=== PATIENT | female | born 1955 | race Caucasian/White ===

== ENCOUNTER 2016-08-22 17:01 | Emergency (ER) | payer OTHER, MEDICARE ==
[~2016-08-22] VITALS: Ht 162.6 cm; Wt 41.3 kg
[~2016-08-22 17:01] MED LIST: ASPIRIN325 M2 PO; ATORVASTATIN CA40 MG PO; AUGMENTIN 875875 MG PO; CARISOPRODOL350 MG PO; FIORICET 300 MG1 CAP PO; GUAIFENESIN600 MG PO; HEPARIN 2525000 UNI1 IV; LEVOTHROID SOD0.1 MG PO; LEVOTHROID0.2 MG PO; LEVOTHYROXIN0.025 MG PO; LISINOPRIL2.5 MG PO; LOVENOX40 MG/0.1 SC; MORPHINE SULFAT30 M1 PO; MORPHINE SULFAT30 M2 PO; NORVASC 10MG10 MG PO; NORVASC 5MG TAB5 MG PO; PERCOCET 325 MG1 TA2 PO; PERCOCET 325 MG1 TAB PO; PRINIVIL 5MG5 MG PO; ROCEPHIN1000 MG IV; SOMA 350MG TAB350 MG PO; TRAMADOL50 MG PO; TYLENOL325 MG PO
[2016-08-22 17:50] LABS: ABSOLUTE BASOPHIL COUNT 0 /CUMM (0.0-0.2); ABSOLUTE EOSINOPHIL COUNT 0.2 /CUMM (0.0-0.7); ABSOLUTE GRANULOCYTE CT 8.9 /CUMM (1.4-6.5); ABSOLUTE LYMPH COUNT 1.5 /CUMM (1.2-3.4); ABSOLUTE MONOCYTE COUNT 0.6 /CUMM (0.10-0.60); BASOPHIL % 0.4 % (0.0-2.0); EOSINOPHIL % 1.6 % (0-5); GRANULOCYTE % 79.3 % (42.2-75.2); HEMATOCRIT 46.3 % (37-47); MEAN CORPUSCULAR HGB 29.5 PG (27.0-31.0); MEAN CORPUSCULAR HGB CONC 32.6 G/DL (33.0-37.0); MEAN CORPUSCULAR VOLUME 90.5 FL (81.0-99.0); MEAN PLATELET VOLUME 8.9 FL (7.4-10.4); PLATELET COUNT 231 /CUMM (130-400); RBC DISTRIBUTION WIDTH 18.3 % (11.5-14.5); RED BLOOD CELL CT 5.11 /CUMM (4.20-5.40); WHITE BLOOD CELL COUNT 11.3 /CUMM (4.8-10.8)
--- NOTE | 2016-08-22 18:35 | ED GENERAL ADULT ---
History of Present Illness General Chief Complaint: Low Back Pain/Injury Stated Complaint: BIBA, BACK PAIN Source: patient, old records Exam Limitations: no limitations Vital Signs & Intake/Output Vital Signs & Intake/Output Vital Signs Date Time Temp Pulse Resp B/P B/P Pulse O2 O2 Flow FiO2 Mean Ox Delivery Rate 08/22 2142 98.2 76 18 180/90 94 Room Air 08/223 190/90 08/22 1839 71 20 180/110 93 Room Air 08/22 1711 98.4 75 15 206/110 97 Room Air Room Air ED Intake and Output 08/23 0000 08/22 1200 Intake Total Output Total Balance Patient 91 lb Weight Weight Reported by Patient Measurement Method Allergies Coded Allergies: erythromycin base (UNKNOWN PT DOESNT REMEMBER 08/22/16) Reconcile Medications Amlodipine Besylate 10 MG TABLET 1 TAB PO DAILY BP (Reported) Aspirin (Ecotrin*) 81 MG TABLET.DR 1 TAB PO DAILY HEART/BLOOD (Reported) Atorvastatin Calcium 80 MG TABLET 1 TAB PO Q2D CHOLESTEROL (Reported) Ciprofloxacin HCl (Cipro) 500 MG TABLET 1 TAB PO BID pyelo Clopidogrel Bisulfate (Clopidogrel) 75 MG TABLET 1 TAB PO DAILY BLOOD THINNER (Reported) Levothyroxine Sodium 112 MCG TABLET 1 TAB PO DAILY THYROID (Reported) Lisinopril 2.5 MG TABLET 1 TAB PO DAILY BP (Reported) Lisinopril 20 MG TABLET 1 TAB PO DAILY BP (Reported) Metoprolol Succinate 25 MG TAB 1 TAB PO DAILY HEART/BP (Reported) Oxycodone HCl/Acetaminophen (Percocet 5-325 MG Tablet) 5 MG-325 MG TABLET 1 TAB PO BID PRN pain Triage Note: PT BIBA TO TRIAGE FOR L LOWER BACK PAIN THAT STARTED THREE DAYS AGO WITHOUT ANY TRAUMA. PT DID NOT TAKE ANY PAIN MEDICATION TODAY. PT DENIES NUMBNESS OR TINGLING IN L LEG. PT IS HYPERTENSIVE IN TRIAGE 206/110. REPORTS SHE DID TAKE HER BP MEDICATION TODAY. Triage Nurses Notes Reviewed? yes Onset: Gradual Duration: day(s): (3), constant Timing: recent history Injury Environment: home Severity: moderate, severe Severity Numbers: 7 No Modifying Factors: none Associated Symptoms: DENIES HPI: 61-year-old female history of peripheral vascular disease hypertension presents to ER for evaluation complaining of left lower back pain started 3 days ago. She denies any known injury or trauma or injury. She has not taken anything for her symptoms. The pain is nonradiating she denies any abdominal pain and swelling. She denies any nausea vomiting or diarrhea on arrival the patient presents hypertensive she states she has been compliant with her medication however believes her blood pressure is elevated secondary to her pain. No chest pain shortness of breath cough fever or chills. (SANTI GREGG) Past History Travel History Traveled to [place] past 21 day No Medical History Any Pertinent Medical History? see below for history Neurological: VASCULAR ISSUES PERIPHERAL VASCULAR DISEASE EENT: NONE Cardiovascular: hypertension, PVD Respiratory: bronchitis, emphysema, pneumonia Gastrointestinal: ASCITES ISCHEMIC BOWEL? Hepatic: NONE Renal: NONE Musculoskeletal: chronic back pain, R ABOVE KNEE AMPUTATION SCOLIOSIS Psychiatric: HISTORY OF DRUG ABUSE Endocrine: hypothyroidism (noncompliance with medication) Blood Disorders: NONE Cancer(s): NONE [employer]ING [employer]YING [employer] REPA[employer]ER/Reproductive: NONE History of MRSA: No History of VRE: No History of CDIFF: No Surgical History Surgical History: R AKA, CHOLY, UPPER EXTREMITY ARTERIAL STENT Psychosocial History Who do you live with Family Services at Home None What is your primary language Trinidadian Tobacco Use: Current Daily Use Daily Tobacco Use Amount/Type: => 5 Cigarettes daily ETOH Use: occasional use Illicit Drug Use: denies illicit drug use Family History Family History, If Any: MOTHER FH: heart attack, Onset: 40-50. FATHER FH: emphysema Hx Contributory? No (SANTI GREGG) Review of Systems Review of Systems Constitutional: Reports: see HPI. All Other Systems: Reviewed and Negative Comments Review of systems: See HPI, All other systems negative. Constitutional, no chills no fever, no malaise HEENT: No visual changes no sore throat no congestion, no ear pain Cardiovascular: No chest pain , no palpitation Skin: no rashes, no change in skin Respiratory: No dyspnea no cough no sputum GI: No nausea no vomiting, no diarrhea, no bloating/constipation : No dysuria No hematuria, no frequency, no discharge Muscle skeletal: No joint pain, no joint swelling, no back pain, no neck pain, Neurologic: No numbness no headache Psych: No stress no depression,. Heme/endocrine: No bruising no bleeding Immunology: No lymphadenopathy (SANTI GREGG) Physical Exam Physical Exam General Appearance: well developed/nourished, alert, awake Comments: Well-developed well-nourished person in no acute distress HEENT: Normal EENT exam; PERRL, EOMI. HEAD is atraumatic. moist mucous membranes. Neck: Supple, normal range of motion without pain or tenderness Back: Nontender, no CVA tenderness. Full range of motion Cardiovascular: Regular rate and rhythms no murmurs rubs or gallops, normal JVP Respiratory: Chest nontender.There were no bony deformities, no asymmetry. No respiratory distress. Patient speaking in full complete sentences. Breath sounds clear to auscultation bilaterally: NO W/R/R Abdomen: Soft, nontender nondistended, no appreciable organomegaly. Normal bowel sounds. No rebound/guarding, No appreciable enlargement of the abdominal aorta, No ascites. Extremity: Right lower extremity above-knee amputation No edema, full range of motion of extremities, normal and equal pulses bilaterally Neuro: Alert oriented x3, motor sensory normal, cranial nerves II through XII grossly intact. There were no obvious focal neurologic abnormalities. Skin: No appreciable rash on exposed skin, skin is warm and dry. Psych: Mood and affect is normal, memory and judgment is normal. Core Measures ACS in differential dx? No CVA/TIA Diagnosis: No Severe Sepsis Present: No Septic Shock Present: No (SANTI GREGG) Progress Differential Diagnoses I considered the following diagnoses in my evaluation of the patient: Muscle strain kidney stone herniated disc cauda equina diverticulitis hypertensive urgency emergency] Plan of Care: Orders Procedure Date/time Status TROPONIN LEVEL 08/22 1718 Complete COMPREHENSIVE METABOLIC PANEL 08/22 1718 Complete CBC WITHOUT DIFFERENTIAL 08/22 1718 Complete EKG 08/22 1718 Active Laboratory Tests 08/22/16 1734: Anion Gap 14, Estimated GFR > 60, BUN/Creatinine Ratio 16.0, Glucose 94, Calcium 9.7, Total Bilirubin 1.1, AST 34, ALT 46, Alkaline Phosphatase 105, Troponin I < 0.01, Total Protein 9.1 H, Albumin 5.1 H, Globulin 4.0, Albumin/Globulin Ratio 1.3, CBC w Diff NO MAN DIFF REQ, RBC 5.11, MCV 90.5, MCH 29.5, RDW 18.3 H, MPV 8.9, Gran % 79.3 H, Lymphocytes % 13.7 L, Monocytes % 5.0, Eosinophils % 1.6, Basophils % 0.4, Absolute Granulocytes 8.9 H, Absolute Lymphocytes 1.5, Absolute Monocytes 0.6, Absolute Eosinophils 0.2, Absolute Basophils 0, PUBS MCHC 32.6 L Patient medicated Dilaudid repeat blood pressure slightly improved. Patient denies headache vision changes chest pain CAT scan ordered labs ordered On repeat evaluation the patient reports she is feeling improved the pain has resolved and is requesting to go home discussed with her need for CAT scan patient will agree to stay at this time 08/22/2016 9:20:31 PM I discussed with the patient at length all of their results. I had an extensive conversation regarding need for close follow up with their primary care physician this week as well as return precautions. I answered all of their questions, they feel comfortable with the plan and follow-up care. I discussed with the patient/family the medications that they will receive. I gave them signs and symptoms that could indicate an adverse reaction. I have advised them to limit their activities until they can see how they respond to the medication. (AMBER GARNER,SANTI) Diagnostic Imaging: Viewed by Me: CT Scan. Discussed w/RAD: CT Scan. Radiology Impression: PATIENT: AALIYAH MACIEL PRESENT AGE: 61 PATIENT ACCOUNT NO: [id number] : 55 LOCATION: [facility] ([place]) ORDERING PHYSICIAN: SANTI GARNER SERVICE DATE: 08/22/16 EXAM TYPE: CAT - CT ABD & PELVIS W/O IV CONTRAS EXAMINATION: CT ABDOMEN AND PELVIS WITHOUT CONTRAST CLINICAL INFORMATION: Left lower back pain. COMPARISON: Arch 2014. TECHNIQUE : Contiguous axial thin section helical images of the abdomen and pelvis were performed without oral or IV contrast. The data set was reformatted in the coronal and sagittal planes and reviewed on an independent workstation. DLP: 272 mGy-cm. FINDINGS: There is a small left pleural effusion with adjacent airspace disease. Emphysema is identified within both lung bases. The visualized portions of the heart are unremarkable. The liver is of normal size and attenuation without focal lesions nor intrahepatic biliary ductal dilation. A normal gallbladder is identified. There is no wall thickening or discernible pericholecystic fluid. The spleen, pancreas, adrenal glands are unremarkable. Both kidneys are of normal size and attenuation without hydronephrosis. There is a 1 mm nonobstructive calculus within the interpole region of the right kidney. There are renal arterial vascular calcifications present bilaterally. There is left perinephric stranding. This extends inferiorly along the proximal left ureter. There is adjacent stranding about the descending colon. There is no abdominal free fluid. There is no discernible mesenteric lymphadenopathy. There is nonspecific fullness in the left retroperitoneal region inferior to the left kidney. This is similar to prior exam and could correspond to mild lymphadenopathy. The patient is status post aortobifemoral bypass. Evaluation of the vasculature is now possible on this noncontrast exam. As stated above, there is stranding about the descending colon. Evaluation of the colon is limited as it is undistended.. There is no pelvic free fluid. The urinary bladder is unremarkable. There is neither pelvic nor inguinal lymphadenopathy. Bone windows : Neither sclerotic nor lytic bone lesions are identified. IMPRESSION: There is left perinephric and proximal ureteral stranding without associated hydronephrosis or nephrolithiasis. There is also adjacent stranding about the descending colon and trace fluid inferior to the left kidney. The etiology for this appearance is uncertain. This could relate to a renal infection or recently passed calculus. Alternatively, the appearance of the kidney could be secondary to inflammation about the descending colon, though that is considered less likely. Finally, the aforementioned stranding is also adjacent to the aortobifemoral graft. The vasculature is not evaluated on this noncontrast exam. Consider correlation with a follow-up contrast-enhanced examination to further evaluate the left kidney and vasculature. Small left pleural effusion with adjacent airspace disease. Emphysema. 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 < Electronically signed in Other Vendor System> SIGNED BY: HALLIE PERALTA MD 08/22/162099 Initial ED EKG: NSR AT 70, NO ACUTE ST SEG CHANGES, NORMAL AXIS (SANTI GREGG) Departure Departure Time of Disposition: 2115 Disposition: HOME OR SELF CARE Condition: Stable Clinical Impression Primary Impression: Pyelonephritis Referrals: PATIENT HAS NO PRIMARY CARE DR (PCP/Family) Additional Instructions: cipro as directed, percocet for pain. follow upwith your pmd tomorrow, return to the ER at anytime sooner with any concerns Departure Forms: Customer Survey General Discharge Information Prescriptions: Current Visit Scripts Ciprofloxacin HCl (Cipro) 1 TAB PO BID #14 TAB Oxycodone HCl/Acetaminophen (Percocet 5-325 MG Tablet) 1 TAB PO BID PRN pain #10 TAB (SANTI GREGG) PA/LAPEL BASTER Co-Sign Statement Statement: ED Attending supervision documentation- [] I saw and evaluated the patient. I have also reviewed all the pertinent lab results and diagnostic results. I agree with the findings and the plan of care as documented in the PA's/LAPEL BASTER's documentation. [x] I have reviewed the ED Record and agree with the PA's/LAPEL BASTER's documentation. [] Additions or exceptions (if any) to the PAs/LAPEL BASTER's note and plan are summarized below: [] (NETO MONTIEL,KOREY Porras) Critical Care Note Critical Care Note Critical Care Time: non-applicable (SANTI GREGG)
[2016-08-22] MEDS ORDERED: LEVOTHYROXINE112 MCG PO (18:43)
[2016-08-22] MEDS ORDERED: LISINOPRIL20 M1 PO (18:43)
[2016-08-22] MEDS ORDERED: ATORVASTATIN CA80 M1 PO (18:44)
[2016-08-22] MEDS ORDERED: CLOPIDOGREL75 M1 PO (18:44)
[2016-08-22] MEDS ORDERED: AMLODIPINE BESY10 M1 PO (18:44)
[2016-08-22] MEDS ORDERED: METOPROLOL SUCC25 M1 PO (18:45)
[2016-08-22] MEDS ORDERED: ASPIRIN EC81 M1 PO (18:46)
[2016-08-22] MEDS ORDERED: LISINOPRIL2.5 M1 PO (18:47)
--- NOTE | 2016-08-22 21:00 | CT SCAN REPORT ---
EXAMINATION: CT ABDOMEN AND PELVIS WITHOUT CONTRAST CLINICAL INFORMATION: Left lower back pain. COMPARISON: Arch 2014. TECHNIQUE: Contiguous axial thin section helical images of the abdomen and pelvis were performed without oral or IV contrast. The data set was reformatted in the coronal and sagittal planes and reviewed on an independent workstation. DLP: 272 mGy-cm. FINDINGS: There is a small left pleural effusion with adjacent airspace disease. Emphysema is identified within both lung bases. The visualized portions of the heart are unremarkable. The liver is of normal size and attenuation without focal lesions nor intrahepatic biliary ductal dilation. A normal gallbladder is identified. There is no wall thickening or discernible pericholecystic fluid. The spleen, pancreas, adrenal glands are unremarkable. Both kidneys are of normal size and attenuation without hydronephrosis. There is a 1 mm nonobstructive calculus within the interpole region of the right kidney. There are renal arterial vascular calcifications present bilaterally. There is left perinephric stranding. This extends inferiorly along the proximal left ureter. There is adjacent stranding about the descending colon. There is no abdominal free fluid. There is no discernible mesenteric lymphadenopathy. There is nonspecific fullness in the left retroperitoneal region inferior to the left kidney. This is similar to prior exam and could correspond to mild lymphadenopathy. The patient is status post aortobifemoral bypass. Evaluation of the vasculature is now possible on this noncontrast exam. As stated above, there is stranding about the descending colon. Evaluation of the colon is limited as it is undistended.. There is no pelvic free fluid. The urinary bladder is unremarkable. There is neither pelvic nor inguinal lymphadenopathy. Bone windows: Neither sclerotic nor lytic bone lesions are identified. IMPRESSION: There is left perinephric and proximal ureteral stranding without associated hydronephrosis or nephrolithiasis. There is also adjacent stranding about the descending colon and trace fluid inferior to the left kidney. The etiology for this appearance is uncertain. This could relate to a renal infection or recently passed calculus. Alternatively, the appearance of the kidney could be secondary to inflammation about the descending colon, though that is considered less likely. Finally, the aforementioned stranding is also adjacent to the aortobifemoral graft. The vasculature is not evaluated on this noncontrast exam. Consider correlation with a follow-up contrast-enhanced examination to further evaluate the left kidney and vasculature. Small left pleural effusion with adjacent airspace disease. Emphysema.
[2016-08-22] MEDS ORDERED: CIPRO500 M1 PO (21:18)
[2016-08-22] MEDS ORDERED: PERCOCET 5-3251 EACH PO (21:18)
[2016-08-22 21:43] VITALS: BP 180/90
== END 2016-08-22 21:56 ==
LOC: ERH 17:01
PROVIDERS: Emergency Medicine
DX: N12 Tubulo-interstitial nephritis, not specified as acute or chronic (principal)
CPT/HCPCS: 74176; 93005; 93010; 96372

== ENCOUNTER 2017-04-17 22:19 | Inpatient (IN) | payer OTHER, MEDICARE ==
[~2017-04-17] VITALS: Ht 162.6 cm; Wt 44.9 kg
[~2017-04-17 22:19] MED LIST changes: +AMLODIPINE BESY10 M1 PO; +ASPIRIN EC81 M1 PO; +ATORVASTATIN CA80 M1 PO; +CIPRO500 M1 PO; +CLOPIDOGREL75 M1 PO; +LEVOTHYROXINE112 MCG PO; +LISINOPRIL2.5 M1 PO; +LISINOPRIL20 M1 PO; +METOPROLOL SUCC50 M2 PO; +PERCOCET 5-3251 EACH PO
--- NOTE | 2017-04-17 22:27 | ED GENERAL ADULT ---
See Addendum History of Present Illness General Chief Complaint: General Adult Stated Complaint: HAND NUMBESS, HEADACHE, N/V, ABDOMINAL PAIN Source: patient Exam Limitations: no limitations Vital Signs & Intake/Output Vital Signs & Intake/Output Vital Signs Date Time Temp Pulse Resp B/P B/P Pulse O2 O2 Flow FiO2 Mean Ox Delivery Rate 04/17 2347 96 Room Air 04/17 2342 97.3 70 18 106/69 96 Room Air 04/17 2228 97.1 91 18 122/85 ED Intake and Output 04/18 0000 04/17 1200 Intake Total Output Total Balance Patient 98 lb Weight Weight Estimated Measurement Method Allergies Coded Allergies: erythromycin base (UNKNOWN PT DOESNT REMEMBER 08/22/16) Reconcile Medications Amlodipine Besylate 10 MG TABLET 1 TAB PO DAILY BP (Reported) Aspirin (Ecotrin*) 81 MG TABLET.DR 1 TAB PO DAILY HEART/BLOOD (Reported) Atorvastatin Calcium 80 MG TABLET 1 TAB PO Q2D CHOLESTEROL (Reported) Ciprofloxacin HCl (Cipro) 500 MG TABLET 1 TAB PO BID pyelo Clopidogrel Bisulfate (Clopidogrel) 75 MG TABLET 1 TAB PO DAILY BLOOD THINNER (Reported) Levothyroxine Sodium 112 MCG TABLET 1 TAB PO DAILY THYROID (Reported) Lisinopril 2.5 MG TABLET 1 TAB PO DAILY BP (Reported) Lisinopril 20 MG TABLET 1 TAB PO DAILY BP (Reported) Metoprolol Succinate 25 MG TAB 1 TAB PO DAILY HEART/BP (Reported) Oxycodone HCl/Acetaminophen (Percocet 5-325 MG Tablet) 5 MG-325 MG TABLET 1 TAB PO BID PRN pain Triage Nurses Notes Reviewed? yes Onset: Gradual Duration: day(s): Timing: recent history Injury Environment: home Severity: mild, moderate HPI: 61 Yo woman h/o vascular disease, from home, presents with headache, nausea, photophobia that began this afternoon. She also notes left hand numbness x many weeks and right hand numbness that began a few days ago. She notes no weakness. She shares that she also has had diarrhea, nausea, and vomiting for the past 1-2 days. Past History Travel History Traveled to [place] past 21 day No Medical History Any Pertinent Medical History? see below for history Neurological: VASCULAR ISSUES PERIPHERAL VASCULAR DISEASE EENT: NONE Cardiovascular: hypertension, PVD Respiratory: bronchitis, emphysema, pneumonia Gastrointestinal: ASCITES ISCHEMIC BOWEL? 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 FATHER FH: emphysema Hx Contributory? No Review of Systems Review of Systems Constitutional: Reports: no symptoms. EENTM: Reports: no symptoms. Respiratory: Reports: no symptoms. Cardiovascular: Reports: no symptoms. GI: Reports: no symptoms. Genitourinary: Reports: no symptoms. Musculoskeletal: Reports: no symptoms. Skin: Reports: no symptoms. Neurological/Psychological: Reports: no symptoms. Hematologic/Endocrine: Reports: no symptoms. Immunologic/Allergic: Reports: no symptoms. All Other Systems: Reviewed and Negative Physical Exam Physical Exam General Appearance: well developed/nourished, mild distress Head: atraumatic, normal appearance Eyes: Bilateral: normal appearance, PERRL, EOMI. Ears, Nose, Throat: normal pharynx, normal ENT inspection Neck: normal inspection, supple, full range of motion Respiratory: chest non-tender, no respiratory distress, diminished breath sounds bilaterally Cardiovascular: regular rate/rhythm Gastrointestinal: normal bowel sounds, soft, non-tender, no organomegaly, mild distension Back: normal inspection, normal range of motion Extremities: right leg amputated left leg w/o edema, warm, well perfused. Skin: intact, normal color, warm/dry Core Measures ACS in differential dx? No CVA/TIA Diagnosis: No Sepsis Present: Yes Sepsis Focused Exam Completed? Yes Progress Differential Diagnoses I considered the following diagnoses in my evaluation of the patient: cerebrovascular disease vs migraine vs other abd pathology such as colitis vs other. Plan of Care: Orders Procedure Date/time Status BLOOD CULTURE 04/18 0140 Active BLOOD CULTURE 04/18 0139 Active LACTIC ACID 04/18 0131 Active LACTIC ACID 04/17 2231 Complete RAPID VIRAL INFLUENZA A 04/17 2226 Complete TROPONIN LEVEL 04/17 2226 Complete PARTIAL THROMBOPLASTIN TIME 04/17 2226 Complete PROTHROMBIN TIME 04/17 2226 Complete LIPASE 04/17 2225 Complete HEPATIC FUNCTION PANEL 04/17 2225 Complete CBC WITHOUT DIFFERENTIAL 04/17 2225 Complete BASIC METABOLIC PANEL 04/17 2225 Complete AMYLASE 04/17 2225 Complete EKG 04/17 2225 Active Current Medications Sig/Eduardo Start time Last Medication Dose Stop Time Status Admin Ceftriaxone Sodium 1,000 MG ONCE ONE 04/18 214 AC (Rocephin) 04/18 215 Metronidazole 500 MG IQ8 04/18 214 UNVr (Flagyl) N/A 1 UNIT (No Carrier) Ampicillin Sodium/ 3,000 MG ONCE ONE 04/18 144 CAN Sulbactam Sodium 04/18 213 (Unasyn) Sodium Chloride 100 ML (Normal Saline 0.9%) Laboratory Tests 04/18/17 0123: Lactic Acid Pending 04/17/17 2320: Lactic Acid 6.5 H 04/17/17 2320: Anion Gap 21 H, Estimated GFR 46 L, BUN/Creatinine Ratio 15.0, Glucose 213 H, Calcium 9.7, Total Bilirubin 1.5 H, Direct Bilirubin 1.3 H, AST 155 H, ALT 129 H, Alkaline Phosphatase 303 H, Troponin I 0.05, Total Protein 8.3 H, Albumin 5.0, Amylase 183 H, Lipase 93, PT 15.9 H, INR 1.52 H, APTT 45 H, CBC w Diff NO MAN DIFF REQ, RBC 5.09, MCV 94.4, MCH 30.9, RDW 15.8 H, MPV 8.6, Gran % 90.5 H, Lymphocytes % 7.8 L, Monocytes % 0.9 L, Eosinophils % 0.2, Basophils % 0.6, Absolute Granulocytes 13.7 H, Absolute Lymphocytes 1.2, Absolute Monocytes 0.1, Absolute Eosinophils 0, Absolute Basophils 0.1, PUBS MCHC 32.8 L Microbiology 04/18 139 BLOOD: Blood Culture - ORD 04/18 138 BLOOD: Blood Culture - ORD 04/17 2311 NASOPHARYN: Influenza Virus A & B Rapid Smear - COMP Diagnostic Imaging: Viewed by Me: CT Scan. Discussed w/RAD: CT Scan. Radiology Impression: PATIENT: AALIYAH MACIEL PRESENT AGE: 61 PATIENT ACCOUNT NO: [id number] : 55 LOCATION: [facility] ORDERING PHYSICIAN: Benny Benson MD SERVICE DATE: 04/17/17 EXAM TYPE: CAT - CT HEAD ANGIOGRAM EXAMINATION: CT ANGIOGRAM HEAD CLINICAL INFORMATION: Aneurysms. Headache. COMPARISON: None TECHNIQUE: Initial noncontrast head CT was performed. Test bolus sequences followed by intravenous administration 108 mL of Optiray 350 intravenous contrast. Helical imaging was performed in the axial plane from the skull base to the skull vertex. Delayed postcontrast imaging of the head was also performed. The data was processed at the vascular technologist sonographer's workstation for generation of MIP sequences. Three-dimensional volume rendered reformatted images were also generated at an offline 3-D workstation. DLP: 1484 mGy-cm FINDINGS: HEAD: No intracranial mass, intercerebral edema, hemorrhage, or midline shift is evident. The ventricles and sulci are stable in size and configuration. No extra-axial collections are appreciated. Mild periventricular and deep white matter hypoattenuation is present, consistent with small vessel ischemic change. There is no abnormal parenchymal or leptomeningeal enhancement on the postcontrast imaging. The paranasal sinuses and mastoid air cells are well aerated and clear. CRANIAL CTA: There is normal opacification of the major intracranial vessels. No acute proximal large vessel occlusion or flow-limiting stenosis is identified. There are multiple aneurysms identified. There is a right middle cerebral artery aneurysm at the M2/and 3 level measuring 0.7 x 0.7 x 0.5 cm, series 5 image 199. On the left at the same MCA level there is a smaller aneurysm, measuring 0.3 cm, series 5 image 208. Mild fullness in the region of the basilar tip without focal aneurysm identified. The visualized cervical portion of the internal carotid arteries and vertebral arteries is unremarkable. IMPRESSION: 1. No acute intracranial findings. 2. Bilateral middle cerebral artery aneurysms. No evidence of acute hemorrhage. No prior studies are available to compare aneurysm size. DICTATED BY: Artemio Quispe MD DATE/TIME DICTATED:04/18/17105 PORTER SAMPLE CASE:PRINCESS DATE/TIME TRANSCRIBED:105 CONFIDENTIAL, DO NOT COPY WITHOUT APPROPRIATE AUTHORIZATION. < Electronically signed in Other Vendor System> SIGNED BY: Artemio Quispe MD 04/18/17 0115, abd/pelvic... pancolitis PATIENT: AALIYAH MACIEL PRESENT AGE: 61 PATIENT ACCOUNT NO: [id number] : 55 LOCATION: [facility] ORDERING PHYSICIAN: Benny Benson MD SERVICE DATE: EXAM TYPE: CAT - CT ABD & PELVIS W/O IV CONTRAS EXAMINATION: CT ABDOMEN AND PELVIS WITHOUT CONTRAST CLINICAL INFORMATION: Abdominal pain and diarrhea COMPARISON: 08/22/2016 TECHNIQUE: Multidetector volumetric imaging was performed from the superior aspect of the liver through the pubic symphysis. Sagittal and coronal reformatted images were obtained on the technologist's workstation. DLP: 243 mGy-cm FINDINGS: LUNG BASES: Emphysema noted. Coronary artery calcifications. LIVER, GALLBLADDER, AND BILIARY TREE: The liver is normal in size, shape, and attenuation. No focal hepatic lesion or biliary ductal dilatation is present. The gallbladder is not seen, likely absent. PANCREAS: Unremarkable. SPLEEN: Unremarkable. ADRENAL GLANDS: Left adrenal gland is unremarkable. Likely right adrenal adenoma. The appearance is unchanged. KIDNEYS AND URETERS: The kidneys are normal in size, shape, and attenuation. No hydronephrosis, hydroureter, or calculi seen. No perinephric stranding. BLADDER: Decompressed with no gross abnormality. GASTROINTESTINAL TRACT: Lack of IV contrast and intra-abdominal fat limits the evaluation. The stomach appears unremarkable. The small bowel is nonobstructed. There is pancolonic wall thickening with adjacent inflammation noted. There is a normal appendix. No free air. No significant free fluid. ABDOMINAL WALL: No significant hernia is appreciated. LYMPH NODES: Normal. VASCULAR: Postsurgical changes with aortobiiliac bypass. Vascular stents also noted. PELVIC VISCERA: Unremarkable. OSSEOUS STRUCTURES: No acute or suspicious osseous abnormality. Degenerative changes of the spine and hips. IMPRESSION: Pancolitis of uncertain etiology, possibly infectious, inflammatory, or ischemic in nature. Emphysema. Additional chronic changes as above. DICTATED BY: Artemio Quispe MD DATE/TIME DICTATED: 04/18/17111 PORTER SAMPLE CASE:PRINCESS DATE/TIME TRANSCRIBED:04/18/17111 CONFIDENTIAL, DO NOT COPY WITHOUT APPROPRIATE AUTHORIZATION. <Electronically signed in Other Vendor System> SIGNED BY: Artemio Quispe MD 04/18/178 CXR Impression: PATIENT: AALIYAH MACIEL PRESENT AGE: 61 PATIENT ACCOUNT NO: [id number] : 55 LOCATION: [facility] ORDERING PHYSICIAN: Benny Benson MD SERVICE DATE: 04/17/17 EXAM TYPE: RAD - XRY- PORTABLE CHEST XRAY EXAMINATION: XR PORTABLE CHEST CLINICAL INFORMATION: Diminished breath sounds COMPARISON: 11/21/2015 TECHNIQUE: Portable frontal view of the chest was obtained. FINDINGS: Median sternotomy wires appear intact. Mitral valvular hardware noted. The lungs are well expanded. There is blunting at the left costophrenic angle with focal opacity. The right lung appears clear. No pneumothorax. The cardiomediastinal silhouette is unchanged. IMPRESSION: Small left pleural effusion with associated atelectasis/pneumonia. DICTATED BY: Artemio Quispe MD DATE/TIME DICTATED:04/17/172327 PORTER SAMPLE CASE: PRINCESS DATE/TIME TRANSCRIBED:04/17/172327 CONFIDENTIAL, DO NOT COPY WITHOUT APPROPRIATE AUTHORIZATION. <Electronically signed in Other Vendor System> SIGNED BY: Artemio Quispe MD 04/17/17 1195 Initial ED EKG: accelerated junctional rhythm, anterior q waves, no acute change. Departure Departure Disposition: STILL A PATIENT Condition: Stable Clinical Impression Primary Impression: Ischemic colitis Secondary Impressions: Headache, Pneumonia, Sepsis Referrals: Patient Has No Primary Care Dr (PCP/Family) Departure Forms: Customer Survey General Discharge Information Comments 04/18/17, 1:40am...pt has one episode of mucusy, blood... ct scan with pancolitis , elevated wbc count... discussed with dr. miranda (GI) and dr. ordonez (surgery) ... pt with ischemic colitis... merits iv fluids, bowel rest, abx... they will consult in AM. pt to be admitted to medicine. Admission Note Spoke With: Khushi Jennings MD Documentation of Exam: Documentation of any treatments & extenuating circumstances including Concerns Regarding Discharge (functional status, medication knowledge or non-compliance, living conditions, etc.) that warrant an admission rather than observation: pt with sepsis, ischemic colitis, merits iv fluids, iv abx, bowel rest... gi and gen surgery to consult in AM. Critical Care Note Critical Care Note Critical Care Time: 30-74 min
[2017-04-17 23:30] LABS: ABSOLUTE BASOPHIL COUNT 0.1 /CUMM (0.0-0.2); ABSOLUTE EOSINOPHIL COUNT 0 /CUMM (0.0-0.7); ABSOLUTE GRANULOCYTE CT 13.7 /CUMM (1.4-6.5); ABSOLUTE LYMPH COUNT 1.2 /CUMM (1.2-3.4); ABSOLUTE MONOCYTE COUNT 0.1 /CUMM (0.10-0.60); BASOPHIL % 0.6 % (0.0-2.0); EOSINOPHIL % 0.2 % (0-5); GRANULOCYTE % 90.5 % (42.2-75.2); MEAN CORPUSCULAR HGB 30.9 PG (27.0-31.0); MEAN CORPUSCULAR HGB CONC 32.8 G/DL (33.0-37.0); MEAN CORPUSCULAR VOLUME 94.4 FL (81.0-99.0); MEAN PLATELET VOLUME 8.6 FL (7.4-10.4); PLATELET COUNT 187 /CUMM (130-400); RBC DISTRIBUTION WIDTH 15.8 % (11.5-14.5); RED BLOOD CELL CT 5.09 /CUMM (4.20-5.40); WHITE BLOOD CELL COUNT 15.1 /CUMM (4.8-10.8)
--- NOTE | 2017-04-17 23:34 | RADIOLOGY REPORT ---
EXAMINATION: XR PORTABLE CHEST CLINICAL INFORMATION: Diminished breath sounds COMPARISON: 11/21/2015 TECHNIQUE: Portable frontal view of the chest was obtained. FINDINGS: Median sternotomy wires appear intact. Mitral valvular hardware noted. The lungs are well expanded. There is blunting at the left costophrenic angle with focal opacity. The right lung appears clear. No pneumothorax. The cardiomediastinal silhouette is unchanged. IMPRESSION: Small left pleural effusion with associated atelectasis/pneumonia.
[2017-04-17 23:44] LABS: PT 15.9 SEC (9.4-12.5); PTT 45 SEC (25-37)
--- NOTE | 2017-04-18 01:15 | CT SCAN REPORT ---
EXAMINATION: CT ANGIOGRAM HEAD CLINICAL INFORMATION: Aneurysms. Headache. COMPARISON: None TECHNIQUE: Initial noncontrast head CT was performed. Test bolus sequences followed by intravenous administration 108 mL of Optiray 350 intravenous contrast. Helical imaging was performed in the axial plane from the skull base to the skull vertex. Delayed postcontrast imaging of the head was also performed. The data was processed at the glass technologist's workstation for generation of MIP sequences. Three-dimensional volume rendered reformatted images were also generated at an offline 3-D workstation. DLP: 1484 mGy-cm FINDINGS: HEAD: No intracranial mass, intercerebral edema, hemorrhage, or midline shift is evident. The ventricles and sulci are stable in size and configuration. No extra-axial collections are appreciated. Mild periventricular and deep white matter hypoattenuation is present, consistent with small vessel ischemic change. There is no abnormal parenchymal or leptomeningeal enhancement on the postcontrast imaging. The paranasal sinuses and mastoid air cells are well aerated and clear. CRANIAL CTA: There is normal opacification of the major intracranial vessels. No acute proximal large vessel occlusion or flow-limiting stenosis is identified. There are multiple aneurysms identified. There is a right middle cerebral artery aneurysm at the M2/and 3 level measuring 0.7 x 0.7 x 0.5 cm, series 5 image 199. On the left at the same MCA level there is a smaller aneurysm, measuring 0.3 cm, series 5 image 208. Mild fullness in the region of the basilar tip without focal aneurysm identified. The visualized cervical portion of the internal carotid arteries and vertebral arteries is unremarkable. IMPRESSION: 1. No acute intracranial findings. 2. Bilateral middle cerebral artery aneurysms. No evidence of acute hemorrhage. No prior studies are available to compare aneurysm size.
--- NOTE | 2017-04-18 01:18 | CT SCAN REPORT ---
EXAMINATION: CT ABDOMEN AND PELVIS WITHOUT CONTRAST CLINICAL INFORMATION: Abdominal pain and diarrhea COMPARISON: 08/22/2016 TECHNIQUE: Multidetector volumetric imaging was performed from the superior aspect of the liver through the pubic symphysis. Sagittal and coronal reformatted images were obtained on the technologist's workstation. DLP: 243 mGy-cm FINDINGS: LUNG BASES: Emphysema noted. Coronary artery calcifications. LIVER, GALLBLADDER, AND BILIARY TREE: The liver is normal in size, shape, and attenuation. No focal hepatic lesion or biliary ductal dilatation is present. The gallbladder is not seen, likely absent. PANCREAS: Unremarkable. SPLEEN: Unremarkable. ADRENAL GLANDS: Left adrenal gland is unremarkable. Likely right adrenal adenoma. The appearance is unchanged. KIDNEYS AND URETERS: The kidneys are normal in size, shape, and attenuation. No hydronephrosis, hydroureter, or calculi seen. No perinephric stranding. BLADDER: Decompressed with no gross abnormality. GASTROINTESTINAL TRACT: Lack of IV contrast and intra-abdominal fat limits the evaluation. The stomach appears unremarkable. The small bowel is nonobstructed. There is pancolonic wall thickening with adjacent inflammation noted. There is a normal appendix. No free air. No significant free fluid. ABDOMINAL WALL: No significant hernia is appreciated. LYMPH NODES: Normal. VASCULAR: Postsurgical changes with aortobiiliac bypass. Vascular stents also noted. PELVIC VISCERA: Unremarkable. OSSEOUS STRUCTURES: No acute or suspicious osseous abnormality. Degenerative changes of the spine and hips. IMPRESSION: Pancolitis of uncertain etiology, possibly infectious, inflammatory, or ischemic in nature. Emphysema. Additional chronic changes as above.
--- NOTE | 2017-04-18 02:36 | Cons- General Surgery ---
Yasemin Briscoe 04/18/17 0217: General Information and HPI Consulting Request Date of Consult: 04/18/17 Requested By: Dr. Manasa Benson Reason for Consult: Abdominal pain, nausea, vomitting, diarrhea Source of Information: patient, old records Exam Limitations: no limitations History of Present Illness: Mi is a 61 year old female who presents to the ER today with a 1-2 day history of nausea, vomitting and diarrhea. She also acknowledges abdominal pain , mainly in the lower intestinal/pelvic region but she states that she has discomfort throughout. As she was being transported to CT for scan, she had a bm consisting of valeria blood. CT imaging was obtained which shows pancolitis. The etiology of which is unclear at the present moment. Labwork was obtained, lactic acid was evaluated and found to be 6.5 suggesting the possiblity of an ischemic cholitis. The patient has a [facility] signficant for cardiac and vascular issues. She is status post R AKA and left arterial bypass. She has also undergone arterial stenting in her upper extremity and has a history of an [place] approximately 2 years ago. She does have a history of drug abuse. Allergies/Medications Allergies: Coded Allergies: erythromycin base (UNKNOWN PT DOESNT REMEMBER 08/22/16) Past History Medical History Neurological: VASCULAR ISSUES PERIPHERAL VASCULAR DISEASE EENT: NONE Cardiovascular: hypertension, PVD Respiratory: bronchitis, emphysema, pneumonia Gastrointestinal: ASCITES ISCHEMIC BOWEL? 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 FATHER FH: emphysema Psychosocial History Who Do You Live With? spouse Services at Home: None Primary Language: Haitian Living Will? no Power of Well Cleaner/HCP? no Functional Ability ADLs Independent: dressing, eating, toileting, bathing. Ambulation: walker IADLs Independent: finances, telephone, medication admin. Needs Assist: transportation. Review of Systems Review of Systems Constitutional: Reports: see HPI, malaise. EENTM: Reports: no symptoms. Cardiovascular: Reports: no symptoms. Respiratory: Reports: no symptoms. GI: Reports: abdominal pain, diarrhea, nausea, bloody stool, changes in stool, vomiting. Genitourinary: Reports: no symptoms. Musculoskeletal: Reports: no symptoms. Skin: Reports: change in skin color (dry skin, flakes). Neurological/Psychological: Reports: no symptoms. Exam & Diagnostic Data Vital Signs and I&O Vital Signs Date Time Temp Pulse Resp B/P B/P Pulse O2 O2 Flow FiO2 Mean Ox Delivery Rate 04/18 0217 98.2 72 18 138/87 96 Room Air 04/17 2347 96 Room Air 04/17 2342 97.3 70 18 106/69 96 Room Air 04/17 2228 97.1 91 18 122/85 Intake & Output 04/18 0800 04/18 0000 04/17 1600 04/17 0804/17 0000 04/16 1600 Intake Total Output Total Balance Patient 98 lb Weight Weight Estimated Measurement Method Physical Exam: General: Alert and oriented x3, no acute distress, has just received pain medication Cardiac: RRR, s1s2 Pulm: CTA bilaterally ABD: Diffusely tender, softly distended, hypoactive bowel sounds auscultated Extremties: Moves all extremities (RLE had AKA). Distal sensations grossly intact. DP and PT pulses palpable to LLE. Skin dry, flaking. Left calf soft and non-tender Assessment/Plan Assessment/Plan This is a 61 year old female with a significant PMH including drug abuse, htn, pvd, emphysema, hypothyroidism and chronic back pain. She is s/p R aka, Left arterial bypass and she has had an [place]. She presents today with odmo colitis, labwork suggestive of ischemic colitis. -Patient will be admitted to medicine service, GI has been consulted -Surgical recommendatons for now are: Bowel rest and IV hydration, recheck labs after hydrating -Consider abx in the event that this is infectious in nature -If worsening symptoms, rising lactic, rising wbc, rising bicarb will consider surgical intervention Surgery will continue to follow This was discussed with Dr. Ramos Consult Acknowledgment - Thank you for your consult request. Koby Ramos DO 04/18/17 0900: General Information and HPI Allergies/Medications Home Med List: Amlodipine Besylate 10 MG TABLET 1 TAB PO DAILY BP (Reported) Aspirin (Ecotrin*) 81 MG TABLET. 1 TAB PO DAILY HEART/BLOOD (Reported) Atorvastatin Calcium 80 MG TABLET 1 TAB PO Q2D CHOLESTEROL (Reported) Clopidogrel Bisulfate (Clopidogrel) 75 MG TABLET 1 TAB PO DAILY BLOOD THINNER (Reported) Levothyroxine Sodium 112 MCG TABLET 1 TAB PO DAILY AC THYROID (Reported) Lisinopril 20 MG TABLET 1 TAB PO DAILY BP (Reported) Metoprolol Succinate 50 MG TAB.ER.24H 1 TAB PO DAILY HEART (Reported) Assessment/Plan Consult Acknowledgment - Thank you for your consult request. Attending MD Review Statement Attending Statement Attending MD Statement: examined this patient, discuss w/resident/PA/PERSONALIZED LIVING MANAGER NURSE, agreed w/resident/PA/PERSONALIZED LIVING MANAGER NURSE, reviewed EMR data (avail), reviewed images Attending Assessment/Plan: Patient seen and examined, agree with above. Abdominal pain with N/V/D. no diarrhea since last night, still with pain. AVSS UO ok. Abd-soft, diffuse tenderness, no peritoneal signs. LA treding to normal, WBC up. CT scan - c/w colitis, inflamatory vs ischemic.Given the appearance of pancolitis it is unlikel to be ischemic (patient's labs are also improving), Gi consult, IV Abx per the primary team, no acute surgical intervention.
--- NOTE | 2017-04-18 03:34 | History & Physical ---
Jm MONTIEL,[facility] 04/18/17 0332: General Information and HPI MD Statement: I have seen and personally examined AALIYAH HARRISON and documented this H&P. The patient is a 61 year old F who presented with a patient stated chief complaint of [abdominal pain, vomiting, diarrhea]. Source of Information: patient, old records Exam Limitations: no limitations History of Present Illness: Mrs. Harrison is a 61-year-old lady with past medical history significant for hypertension, hyperlipidemia, peripheral vascular disease status post right AKA, coronary artery disease status post open heart surgery with stent placement and valve replacement(November 2016) on Plavix, emphysema, hypothyroidism and pneumonia presents to the ER with abdominal pain, vomiting and diarrhea for 2 days. According to the patient, she was in her usual state of health until 2 days ago when she started having loose watery stools(unsure about frequency), nonbloody vomiting and generalized abdominal pain/distention. Abdominal pain is 6 out of 10 in intensity and relieved with diarrhea. Also reports chills without any fever, unusual eating, sick contacts or recent travel. Unsure about any blood in the stools. States she feels short of breath and wasn't able to catch her breath after having diarrhea and felt lightheaded and dizzy but denies any associated chest pain or palpitations. Also denies any recent cough, sputum production, sore throat, postnasal drip or flulike symptoms. Patient does not remember having any colonoscopy or endoscopy done in the past. Patient had an episode of loose bowel movement with valeria blood in the ER. Allergies/Medications Allergies: Coded Allergies: erythromycin base (UNKNOWN PT DOESNT REMEMBER 08/22/16) Home Med list Amlodipine Besylate 10 MG TABLET 1 TAB PO DAILY BP (Reported) Aspirin (Ecotrin*) 81 MG TABLET.DR 1 TAB PO DAILY HEART/BLOOD (Reported) Atorvastatin Calcium 80 MG TABLET 1 TAB PO Q2D CHOLESTEROL (Reported) Clopidogrel Bisulfate (Clopidogrel) 75 MG TABLET 1 TAB PO DAILY BLOOD THINNER (Reported) Levothyroxine Sodium 112 MCG TABLET 1 TAB PO DAILY AC THYROID (Reported) Lisinopril 20 MG TABLET 1 TAB PO DAILY BP (Reported) Metoprolol Succinate 50 MG TAB.ER.24H 1 TAB PO DAILY HEART (Reported) Past History Travel History Traveled to [place] past 21 day No Medical History Neurological: VASCULAR ISSUES PERIPHERAL VASCULAR DISEASE EENT: NONE Cardiovascular: hypertension, PVD Respiratory: bronchitis, emphysema, pneumonia Gastrointestinal: ASCITES ISCHEMIC BOWEL? Hepatic: NONE Renal: NONE Musculoskeletal: chronic back pain, R ABOVE KNEE AMPUTATION SCOLIOSIS Psychiatric: HISTORY OF DRUG ABUSE Endocrine: hypothyroidism (noncompliance with medication) Blood Disorders: NONE Cancer(s): NONE FIELD MECHANIC/SITE LEAD/Reproductive: NONE History of MRSA: No History of VRE: No History of CDIFF: No Surgical History Surgical History: R AKA(2016), CHOLY, UPPER EXTREMITY ARTERIAL STENT Past Family/Social History Family History Relations & Conditions if any MOTHER FH: heart attack, Onset: 40-50. FATHER FH: emphysema Psychosocial History Where do you live? Home Who Do You Live With? spouse Services at Home: None Primary Language: Polish Smoking Status: Current Everyday Smoker Living Will? no Power of Rn Compliance/HCP? no Functional Ability ADLs Independent: dressing, eating, toileting, bathing. Ambulation: walker IADLs Independent: finances, telephone, medication admin. Needs Assist: transportation. Review of Systems Review of Systems Constitutional: Reports: no symptoms. EENTM: Reports: no symptoms. Cardiovascular: Reports: no symptoms. Respiratory: Reports: short of breath. GI: Reports: abdominal pain, diarrhea, vomiting. Genitourinary: Reports: no symptoms. Musculoskeletal: Reports: no symptoms. Skin: Reports: no symptoms. Neurological/Psychological: Reports: no symptoms. Hematologic/Endocrine: Reports: no symptoms. Immunologic/Allergic: Reports: no symptoms. All Other Systems: Reviewed and Negative Exam & Diagnostic Data Last 24 Hrs of Vital Signs/I&O Vital Signs Date Time Temp Pulse Resp B/P B/P Pulse O2 O2 Flow FiO2 Mean Ox Delivery Rate 04/18 0752 98.0 77 20 126/71 94 Room Air 04/18 0217 98.2 72 18 138/87 96 Room Air 04/17 2347 96 Room Air 04/17 2342 97.3 70 18 106/69 96 Room Air 04/17 2228 97.1 91 18 122/85 Intake & Output 04/18 1600 04/18 0800 04/18 0000 Intake Total Output Total Balance Patient 98 lb Weight Weight Estimated Measurement Method Physical Exam General Appearance Alert, Oriented X3, Cooperative, No Acute Distress Skin No Rashes, No Breakdown Neck Supple, No JVD, No thryomegaly Cardiovascular Regular Rate, Normal S1, Normal S2 Lungs Clear to Auscultation Abdomen Normal Bowel Sounds, tenderness to palpation Extremities No Clubbing, No Cyanosis, No Edema, Normal Pulses, right AKA Last 24 Hrs of Labs/Imer: Laboratory Tests 04/18/17 0821: Lactic Acid Pending 04/18/17 0520: Lactic Acid 3.4 H 04/18/17 0520: Anion Gap 15, Estimated GFR 46 L, BUN/Creatinine Ratio 15.0, Total Bilirubin 0.7, Direct Bilirubin 0.6 H, AST 99 H, ALT 102 H, Alkaline Phosphatase 208 H , Total Protein 6.7, Albumin 4.0, CBC w Diff MAN DIFF ORDERED, RBC 4.00 L, MCV 94.4, MCH 30.8, RDW 15.7 H, MPV 9.1, Gran % 92.4 H, Lymphocytes % 2.7 L, Monocytes % 4.8, Eosinophils % 0.1, Basophils % 0, Absolute Granulocytes 17.2 H , Segmented Neutrophils 83 H, Band Neutrophils 7 H, Absolute Lymphocytes 0.5 L, Lymphocytes 5 L, Monocytes 5, Absolute Monocytes 0.9 H, Absolute Eosinophils 0, Absolute Basophils 0, Platelet Estimate ADEQUATE, Polychromasia 1 +, Hypochromic-Microcytic 1+, Poikilocytosis 1+, Ovalocytes 1+, PUBS MCHC 32.6 L, Fld Total RBCs Counted 100 04/18/17 0123: Lactic Acid 4.7 H 04/17/17 2320: Lactic Acid 6.5 H 04/17/17 2320: Anion Gap 21 H, Estimated GFR 46 L, BUN/Creatinine Ratio 15.0, Glucose 213 H, Calcium 9.7, Total Bilirubin 1.5 H, Direct Bilirubin 1.3 H, AST 155 H, ALT 129 H, Alkaline Phosphatase 303 H, Troponin I 0.05, Total Protein 8.3 H, Albumin 5.0, Amylase 183 H, Lipase 93, PT 15.9 H, INR 1.52 H, APTT 45 H, CBC w Diff NO MAN DIFF REQ, RBC 5.09, MCV 94.4, MCH 30.9, RDW 15.8 H, MPV 8.6, Gran % 90.5 H, Lymphocytes % 7.8 L, Monocytes % 0.9 L, Eosinophils % 0.2, Basophils % 0.6, Absolute Granulocytes 13.7 H, Absolute Lymphocytes 1.2, Absolute Monocytes 0.1, Absolute Eosinophils 0, Absolute Basophils 0.1, PUBS MCHC 32.8 L Microbiology 04/18 441 STOOL: Clostridium difficile Toxin A & B - COLB 04/18 441 STOOL: Stool Culture - COLB 04/18 0215 BLOOD: Blood Culture - RECD 04/18 0200 BLOOD: Blood Culture - RECD 04/17 2312 NASOPHARYN: Influenza Virus A & B Rapid Smear - COMP Diagnostic Data CXR Results IMPRESSION: Small left pleural effusion with associated atelectasis/pneumonia. Other Results CT HEAD ANGIOGRAM IMPRESSION: 1. No acute intracranial findings. 2. Bilateral middle cerebral artery aneurysms. No evidence of acute hemorrhage. No prior studies are available to compare aneurysm size. CT ABD & PELVIS W/O IV CONTRAST IMPRESSION: Pancolitis of uncertain etiology, possibly infectious, inflammatory, or ischemic in nature. Emphysema. Assessment/Plan Assessment: Mrs. Harrison is a 61-year-old lady with past medical history significant for hypertension, hyperlipidemia, peripheral vascular disease status post right AKA, coronary artery disease status post open heart surgery with stent placement and valve replacement(November 2016) on Plavix, emphysema, hypothyroidism and pneumonia presents to the ER with abdominal pain, vomiting and diarrhea for 2 days. A/P; 1. Pancolitis with Sepsis( could be Ischemic or infectious); Patient meets sepsis criteria (sofa score greater than 2 with with white blood cell count of 15.1, lactic acidosis, abnormal LFTs) and likely source of infection in the GI tract. - Will admit the patient to general medicine floor - Keep the patient nothing by mouth - IV fluids - Start the patient on ceftriaxone and Flagyl - Check stools for C. difficile, ova/parasites and cultures to rule out infectious pathology - Follow-up blood cultures - Vascular surgery was called by the ER for concerns of ischemic colitis. Suggests supportive management without any surgical intervention needed at this time. In case of any increasing lactic levels, increasing WBC or increasing bicarbonate patient would need surgery. - Repeat lactic acid levels - GI consult - Hold aspirin and Plavix for GI bleeding. - Hold blood pressure medications. - Adequate pain management 2. History of coronary artery disease with recent stent placement - Cardiology consult 3. MARY - Continue gentle IV hydration - Hold lisinopril - Repeat BP in a.m. 4. CXR finding of atelectasis/pneumonia; - Patient denies any cough, sputum production, fever or upper respiratory tract symptoms. - Watch off antibiotics for pneumonia. 5. History of bilateral middle cerebral artery aneurysms; -We'll do serial neuro exams. 6. Hypokalemia - Potassium level of 3.4 - We will replete and repeat labs in a.m. 7. Hypothyroidism and hyperlipidemia; - Continue Lipitor and levothyroxine. DVT prophylaxis; Alps only(no pharmacological prophylaxis due to GI bleeding) Patient is full code As Ranked By This Provider Problem List: 1. Abdominal pain 2. Leukocytosis Core Measures/Misc (12/19) Acute Coronary Syndrome ACS Diagnosis: No Congestive Heart Failure Congestive Heart Failure Diagnosis No Cerebrovascular Accident CVA/TIA Diagnosis: No VTE (View Protocol) VTE Risk Factors Age>40 No Mechanical VTE Prophylaxis d/t N/A MechProphylax Ordered No VTE Pharm Prophylaxis d/t Bleeding (Active) Sepsis (View protocol) Sepsis Present: No Lizzy Shipley 04/18/17 0646: Resident Review Statement Resident Statement: examined this patient, discussed with process engineering intern, agreed with process engineering intern Other Findings: Patient is a 61-year-old female with a past medical history significant for hypertension and hyperlipidemia, peripheral vascular disease complicated with right above-knee amputation, coronary artery disease status post open heart surgery with stent placement and valve replacement?) November 2016 presented to the ED for the evaluation of worsening nausea vomiting diarrhea. Patient mentioned that she was in her usual state of health until 3 days ago, when she started having nonbilious, nonbloody vomiting along with loose watery stools, almost 10-12 episodes every day. Did not notice any blood in the stool. Also reported cramping constant abdominal discomfort temporally relieved after bowel movement. Denied any sick contacts and denies any recent travels. Denied any fever or chills. Denied any other symptoms including chest discomfort trouble breathing palpitations. Her symptoms were concerning that brought her to the ER for further evaluation. In the ER patient was having 10 on 10 severe abdominal pain, while she was being moved for the CAT scan she had a large bloody bowel movement. CT abdomen and pelvis revealed pancolitis with the labs evident for lactic acidosis suggestive of possible ischemic colitis. Patient continues to smoke 1 pack every 2 days, never had a colonoscopy done. On examination: General Appearance:alert oriented 3, moderate distress Skin: Grossly normal HEENT: PERRLA Neck: Supple, No JVD Cardiovascular: Regular Rate, Normal S1, Normal S2. Lungs: lungs clear to exam b/l. Abdominal exam : Abdominal tenderness without rebound Neurological: Grossly intact. Extremities: Right above-knee amputation. Pertinent labs on admission leukocytosis of 15.1 along with lactic acidosis. CT abdomen and pelvis showed: Pancolitis of uncertain etiology, possibly infectious, inflammatory, or ischemic in nature.Emphysema. Additional chronic changes as above. Problem list Pancolitis(differentials include infectious, inflammatory, or ischemic) * Admit the patient GenMed floor. * Patient has been evaluated by surgery, recommended to continue with conservative management for now. * Continue IV hydration and bowel rest. * Trend lactic acid levels. * Continue IV Cipro And Flagyl. * In case of worsening symptoms increasing lactate levels/ Increasing WBC count/ increasing bicarbonate, surgical intervention would be done. * Nothing by mouth for now * Hold aspirin and Plavix * Hold antihypertensives. Resume all her home medications DVT prophylaxis with alps Patient is FC. 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 She is not sure if diarrhea was bloody as she did not look at the stools. While in the ER, she had one episode of mucusy stool with valeria red blood. She does not recollect having a colonoscopy or EGD done ever. Patient is a limited historian. Vitals stable. Dry mucous membranes, Abd guarded, mildly distended, diffusely tender, BS+. Labs: WBC 15.1, H/H 15.7/48, Plt 187, INR 1.52, K 3.4, AG 21, BUN 18, creat 1.2 (0.5-0.8), glucose 213, lactic acid 6.5, T. Bili 1.5, D. Bili 1.3, AST 155, ALT 129, alk phos 303, trop neg. CT abd/pelvis: pancolitis of uncertain etiology possibly infectious, inflammatory or ischemia. Emphysema. No biliary dilatation, gallbladder is absent. Head CTA: no acute findings. Bilateral middle cerebral artery aneurysms, no acute hemorrhage. CXR: small left pleural effusion with associated atelectasis/ pneumonia. EKG: sinus rhythm, no acute changes. Echo (2016): EF > 55%, stage 1 diastolic dysfunction. Assessment and plan: 1. Pancolitis, concerning for ischemic colitis given vasculopath and elevated lactic acid 2. Lower GI bleed 3. Sepsis, lactic acidosis 4. MARY, hypokalemia 5. Elevated liver enzymes in the setting of sepsis, but need to rule out biliary pathology 6. Coagulopathy 7. Severe peripheral vascular disease 8. Extensive cardiac history 9. Bilateral MCA aneurysms - Admit to general medicine - NPO - Serial abdomen exams - IV fluids, anti-emetics, trend lactic acid - Stool studies Cdiff, culture, ova-parasites - Panculture - IV ceftriaxone and flagyl - Check urinalysis and urine tox screen - Surgery and GI consult - Consider RUQ ultrasound in AM, check hepatitis panel - Hold aspirin and plavix, and anti-hypertensives - Type and crossmatch, goal Hb > 8.0 - Repeat EKG and troponin in AM - Obtain records from Cardiology at [facility] - Cardio consult Dr. Toribio - Pain management - Replete electrolytes, monitor renal functions - Patient came to ER for headache, nausea and photophobia, CTA head shows b/l middle cerebral artery aneurysms please monitor neurochecks on this patient. - Smoking cessation counseling. DVT ppx Alps. Full code.
[2017-04-18 05:38] LABS: ABSOLUTE BASOPHIL COUNT 0 /CUMM (0.0-0.2); ABSOLUTE EOSINOPHIL COUNT 0 /CUMM (0.0-0.7); ABSOLUTE GRANULOCYTE CT 17.2 /CUMM (1.4-6.5); ABSOLUTE LYMPH COUNT 0.5 /CUMM (1.2-3.4); ABSOLUTE MONOCYTE COUNT 0.9 /CUMM (0.10-0.60); BASOPHIL % 0 % (0.0-2.0); EOSINOPHIL % 0.1 % (0-5); GRANULOCYTE % 92.4 % (42.2-75.2); MEAN CORPUSCULAR HGB 30.8 PG (27.0-31.0); MEAN CORPUSCULAR HGB CONC 32.6 G/DL (33.0-37.0); MEAN CORPUSCULAR VOLUME 94.4 FL (81.0-99.0); MEAN PLATELET VOLUME 9.1 FL (7.4-10.4); PLATELET COUNT 156 /CUMM (130-400); RBC DISTRIBUTION WIDTH 15.7 % (11.5-14.5); WHITE BLOOD CELL COUNT 18.7 /CUMM (4.8-10.8)
[2017-04-18 05:43] LABS: HEMATOCRIT 37.8 % (37-47)
--- NOTE | 2017-04-18 07:45 | Admission Certification ---
Admission Certification Certification Statement - As attending physician, I certify that at the time of - admission, based on clinical presentation, severity of - symptoms, need for further diagnostic testing and - therapeutic interventions, and risk of adverse outcomes - without in-hospital treatment, in my clinical assessment, - this patient requires an acute hospital stay for a minimum - of two nights or longer. I have also considered psychsocial - factors such as support system, advanced age, financial - issues, cognitive issues, and failed out-patient treatments, - past re-admission history, safety of patient, and lack of - compliance as applicable. Specific rationale supporting this admission is: Pancolitis concerning for ischemic colitis, lower GI bleed.
--- NOTE | 2017-04-18 07:57 | PN- General Surgery ---
Subjective Subjective: She reports ongoing diffuse abdominal pain. Multiple episodes of bloody diarrhea overnight. Some chills and sweats. Denies nausea. Improving lactic acidosis noted from serial draws overnight. Objective Vital Signs and I&Os Vital Signs Date Time Temp Pulse Resp B/P B/P Pulse O2 O2 Flow FiO2 Mean Ox Delivery Rate 04/18 0752 98.0 77 20 126/71 94 Room Air 04/18 0217 98.2 72 18 138/87 96 Room Air 04/17 2347 96 Room Air 04/17 2342 97.3 70 18 106/69 96 Room Air 04/17 2228 97.1 91 18 122/85 Intake & Output 04/18 0800 04/18 0000 04/17 1600 04/17 0800 04/17 0000 04/16 1600 Intake Total Output Total Balance Patient 98 lb Weight Weight Estimated Measurement Method Physical Exam: General - alert. uncomfortable. no acute distress. Abdomen - soft. diffusely tender. bowel sounds appreciated from across the room. Extremties - s/p R aka. sensation grossly equal / intact. palpable pulses noted , left lower extremity Current Medications: Current Medications Sig/Eduardo Start time Last Medication Dose Route Stop Time Status Admin Acetaminophen 650 MG Q6PRN PRN 04/18 044 AC PO Acetaminophen 1,000 MG Q6P PRN 04/18 0445 AC IV Ampicillin Sodium/ 3,000 MG ONCE ONE 04/18 0145 CAN Sulbactam Sodium IV 04/18 0214 Sodium Chloride 100 ML Ceftriaxone Sodium 1,000 MG 0 04/180 AC IV Ceftriaxone Sodium 1,000 MG DAILY 04/18 1000 DC IV Ceftriaxone Sodium 0 .STK-MED ONE 04/18 0225 DC .ROUTE Ceftriaxone Sodium 1,000 MG ONCE ONE 04/18 0215 DC 04/18 IV 04/18 0216 0234 Hydromorphone HCl 0 .STK-MED ONE 04/18 0132 DC .ROUTE Hydromorphone HCl 0.5 MG ONCE ONE 04/18 0130 DC 04/18 IV 04/18 0131 0131 Metronidazole 500 MG IQ8 04/18 1600 DC N/A 1 UNIT IV Metronidazole 500 MG IQ8 04/18 0215 AC 04/18 N/A 1 UNIT IV 0234 Morphine Sulfate 0 .STK-MED ONE 04/18 0517 DC .ROUTE Morphine Sulfate 1 MG Q4P PRN 01/15 0445 AC 04/18 IV 0531 Sodium Chloride 1,000 ML Q10H 04/18 044 AC 04/18 IV 0730 Sodium Chloride 1,000 ML BOLUS ONE 04/18 44 DC 04/18 IV 04/18 0144 0100 Sodium Chloride 1,000 ML BOLUS ONE 04/18 44 DC 04/18 IV 04/18 0144 0125 Results Last 48 Hours of Labs: Laboratory Tests 04/18 04/18 04/18 0520 0520 0123 Chemistry Sodium (137 - 145 mmol/L) 145 Potassium (3.5 - 5.1 mmol/L) 3.9 Chloride (98 - 107 mmol/L) 108 H Carbon Dioxide (22 - 30 mmol/L) 22 Anion Gap (5 - 16) 15 BUN (7 - 17 mg/dL) 18 H Creatinine (0.5 - 1.0 mg/dL) 1.2 H Estimated GFR (>60 ml/min) 46 L BUN/Creatinine Ratio (7 - 25 %) 15.0 Lactic Acid (0.7 - 2.1 mmol/L) 3.4 H 4.7 H Hematology CBC w Diff MAN DIFF ORDERED WBC (4.8 - 10.8 /CUMM) 18.7 H RBC (4.20 - 5.40 /CUMM) 4.00 L Hgb (12.0 - 16.0 G/DL) 12.3 Hct (37 - 47 %) 37.8 MCV (81.0 - 99.0 FL) 94.4 MCH (27.0 - 31.0 PG) 30.8 RDW (11.5 - 14.5 %) 15.7 H Plt Count (130 - 400 /CUMM) 156 MPV (7.4 - 10.4 FL) 9.1 Gran % (42.2 - 75.2 %) 92.4 H Lymphocytes % (20.5 - 51.1 %) 2.7 L Monocytes % (1.7 - 9.3 %) 4.8 Eosinophils % (0 - 5 %) 0.1 Basophils % (0.0 - 2.0 %) 0 Absolute Granulocytes (1.4 - 6.5 /CUMM) 17.2 H Segmented Neutrophils (42.2 - 75.2 %) 83 H Band Neutrophils (0.0 - 5.0 %) 7 H Absolute Lymphocytes (1.2 - 3.4 /CUMM) 0.5 L Lymphocytes (20.5 - 51.1 %) 5 L Monocytes (1.7 - 9.3 %) 5 Absolute Monocytes (0.10 - 0.60 /CUMM) 0.9 H Absolute Eosinophils (0.0 - 0.7 /CUMM) 0 Absolute Basophils (0.0 - 0.2 /CUMM) 0 Platelet Estimate (ADEQUATE) ADEQUATE Polychromasia 1+ Hypochromic-Microcytic 1+ Poikilocytosis 1+ Ovalocytes 1+ PUBS MCHC (33.0 - 37.0 G/DL) 32.6 L Other Body Source Fld Total RBCs Counted (%) 100 04/17 04/17 2320 2320 Chemistry Sodium (137 - 145 mmol/L) 144 Potassium (3.5 - 5.1 mmol/L) 3.4 L Chloride (98 - 107 mmol/L) 101 Carbon Dioxide (22 - 30 mmol/L) 23 Anion Gap (5 - 16) 21 H BUN (7 - 17 mg/dL) 18 H Creatinine (0.5 - 1.0 mg/dL) 1.2 H Estimated GFR (>60 ml/min) 46 L BUN/Creatinine Ratio (7 - 25 %) 15.0 Glucose (65 - 99 mg/dL) 213 H Lactic Acid (0.7 - 2.1 mmol/L) 6.5 H Calcium (8.4 - 10.2 mg/dL) 9.7 Total Bilirubin (0.2 - 1.3 mg/dL) 1.5 H Direct Bilirubin (< 0.4 mg/dL) 1.3 H AST (14 - 36 U/L) 155 H ALT (9 - 52 U/L) 129 H Alkaline Phosphatase (<127 U/L) 303 H Troponin I (< 0.11 ng/ml) 0.05 Total Protein (6.3 - 8.2 g/dL) 8.3 H Albumin (3.5 - 5.0 g/dL) 5.0 Amylase (30 - 110 U/L) 183 H Lipase (23 - 300 U/L) 93 Coagulation PT (9.4 - 12.5 SEC) 15.9 H INR (0.90 - 1.19) 1.52 H APTT (25 - 37 SEC) 45 H Hematology CBC w Diff NO MAN DIFF REQ WBC (4.8 - 10.8 /CUMM) 15.1 H RBC (4.20 - 5.40 /CUMM) 5.09 Hgb (12.0 - 16.0 G/DL) 15.7 Hct (37 - 47 %) 48.0 H MCV (81.0 - 99.0 FL) 94.4 MCH (27.0 - 31.0 PG) 30.9 RDW (11.5 - 14.5 %) 15.8 H Plt Count (130 - 400 /CUMM) 187 MPV (7.4 - 10.4 FL) 8.6 Gran % (42.2 - 75.2 %) 90.5 H Lymphocytes % (20.5 - 51.1 %) 7.8 L Monocytes % (1.7 - 9.3 %) 0.9 L Eosinophils % (0 - 5 %) 0.2 Basophils % (0.0 - 2.0 %) 0.6 Absolute Granulocytes (1.4 - 6.5 /CUMM) 13.7 H Absolute Lymphocytes (1.2 - 3.4 /CUMM) 1.2 Absolute Monocytes (0.10 - 0.60 /CUMM) 0.1 Absolute Eosinophils (0.0 - 0.7 /CUMM) 0 Absolute Basophils (0.0 - 0.2 /CUMM) 0.1 PUBS MCHC (33.0 - 37.0 G/DL) 32.8 L Assessment/Plan Assessment/Plan This is a 61 year old female with a significant PMH including drug abuse, htn, pvd s/p R aka and left arterial bypass, hx SC, emphysema, hypothyroidism and chronic back pain, who presented with pancolitis, possibly secondary to ischemic colitis (with improving lactic acidosis overnight with ivf) continue bowel rest (npo / ivf) GI consult continue iv rocephin / flagyl serial labs and abdominal examinations hold off on pharmacologic dvt ppx due to bloody diarrhea will d/w
--- NOTE | 2017-04-18 11:50 | PN- Att Addend ---
Attending Addendum Attending Brief Note Patient seen and examined, complain of abdominal pain generalized. Does not have any appetite. Did not have any further episodes of nausea vomiting or diarrhea. Vital Signs Date Time Temp Pulse Resp B/P B/P Pulse O2 O2 Flow FiO2 Mean Ox Delivery Rate 04/18 1026 98.6 74 18 117/75 95 Room Air 04/18 0752 98.0 77 20 126/71 94 Room Air 04/18 0217 98.2 72 18 138/87 96 Room Air 04/17 2347 96 Room Air 04/17 2342 97.3 70 18 106/69 96 Room Air 04/17 2228 97.1 91 18 122/85 On exam awake, nad. cv; s1,s2, rrr resp; clear abd; soft, tender throughout, bs+ ext: no edema. Laboratory Tests 04/18 04/18 04/18 1120 0955 0821 Chemistry Lactic Acid (0.7 - 2.1 mmol/L) Pending 2.3 H Toxicology Urine Opiates Screen (>2000 NG/ML) 1243.00 Methadone Screen (>300 NG/ML) < 40 Barbiturate Screen (>200 NG/ML) < 60 Ur Phencyclidine Scrn (>25 NG/ML) < 6.00 Amphetamines Screen (>1000 NG/ML) < 100 U Benzodiazepines Scrn (>200 NG/ML) < 85 Urine Cocaine Screen (>300 NG/ML) < 50 Urine Cannabis Screen (>50 NG/ML) < 5.00 Urines Urinalysis LIGHT H Urine Color (YEL,AMB,STR) YEL Urine Clarity (CLEAR) CLEAR Urine pH (5.0 - 8.0) 7.0 Ur Specific [place] (1.001 - 1.035) 1.010 Urine Protein (NEG,<30 MG/DL) 100 H Urine Ketones (NEG) NEG Urine Nitrite (NEG) POS H Urine Bilirubin (NEG) NEG Urine Urobilinogen (0.1 - 1.0 EU/dl) 0.2 Ur Leukocyte Esterase (NEG) NEG Ur Microscopic SEDIMENT EXAMINED Urine RBC (0 - 5 /HPF) RARE Urine WBC (0 - 2 /HPF) 3-5 H Ur Epithelial Cells (NONE,FEW) FEW Urine Bacteria (NEG/NONE) MANY H Urine Hemoglobin (NEG) NEG Urine Glucose (N MG/DL) NEG 04/18 04/18 04/18 0520 0520 0123 Chemistry Sodium (137 - 145 mmol/L) 145 Potassium (3.5 - 5.1 mmol/L) 3.9 Chloride (98 - 107 mmol/L) 108 H Carbon Dioxide (22 - 30 mmol/L) 22 Anion Gap (5 - 16) 15 BUN (7 - 17 mg/dL) 18 H Creatinine (0.5 - 1.0 mg/dL) 1.2 H Estimated GFR (>60 ml/min) 46 L BUN/Creatinine Ratio (7 - 25 %) 15.0 Lactic Acid (0.7 - 2.1 mmol/L) 3.4 H 4.7 H Total Bilirubin (0.2 - 1.3 mg/dL) 0.7 Direct Bilirubin (< 0.4 mg/dL) 0.6 H AST (14 - 36 U/L) 99 H ALT (9 - 52 U/L) 102 H Alkaline Phosphatase (<127 U/L) 208 H Total Protein (6.3 - 8.2 g/dL) 6.7 Albumin (3.5 - 5.0 g/dL) 4.0 Hematology CBC w Diff MAN DIFF ORDERED WBC (4.8 - 10.8 /CUMM) 18.7 H RBC (4.20 - 5.40 /CUMM) 4.00 L Hgb (12.0 - 16.0 G/DL) 12.3 Hct (37 - 47 %) 37.8 MCV (81.0 - 99.0 FL) 94.4 MCH (27.0 - 31.0 PG) 30.8 RDW (11.5 - 14.5 %) 15.7 H Plt Count (130 - 400 /CUMM) 156 MPV (7.4 - 10.4 FL) 9.1 Gran % (42.2 - 75.2 %) 92.4 H Lymphocytes % (20.5 - 51.1 %) 2.7 L Monocytes % (1.7 - 9.3 %) 4.8 Eosinophils % (0 - 5 %) 0.1 Basophils % (0.0 - 2.0 %) 0 Absolute Granulocytes (1.4 - 6.5 /CUMM) 17.2 H Segmented Neutrophils (42.2 - 75.2 %) 83 H Band Neutrophils (0.0 - 5.0 %) 7 H Absolute Lymphocytes (1.2 - 3.4 /CUMM) 0.5 L Lymphocytes (20.5 - 51.1 %) 5 L Monocytes (1.7 - 9.3 %) 5 Absolute Monocytes (0.10 - 0.60 /CUMM) 0.9 H Absolute Eosinophils (0.0 - 0.7 /CUMM) 0 Absolute Basophils (0.0 - 0.2 /CUMM) 0 Platelet Estimate (ADEQUATE) ADEQUATE Polychromasia 1+ Hypochromic-Microcytic 1+ Poikilocytosis 1+ Ovalocytes 1+ PUBS MCHC (33.0 - 37.0 G/DL) 32.6 L Other Body Source Fld Total RBCs Counted (%) 100 04/17 04/17 2320 2320 Chemistry Sodium (137 - 145 mmol/L) 144 Potassium (3.5 - 5.1 mmol/L) 3.4 L Chloride (98 - 107 mmol/L) 101 Carbon Dioxide (22 - 30 mmol/L) 23 Anion Gap (5 - 16) 21 H BUN (7 - 17 mg/dL) 18 H Creatinine (0.5 - 1.0 mg/dL) 1.2 H Estimated GFR (>60 ml/min) 46 L BUN/Creatinine Ratio (7 - 25 %) 15.0 Glucose (65 - 99 mg/dL) 213 H Lactic Acid (0.7 - 2.1 mmol/L) 6.5 H Calcium (8.4 - 10.2 mg/dL) 9.7 Total Bilirubin (0.2 - 1.3 mg/dL) 1.5 H Direct Bilirubin (< 0.4 mg/dL) 1.3 H AST (14 - 36 U/L) 155 H ALT (9 - 52 U/L) 129 H Alkaline Phosphatase (<127 U/L) 303 H Troponin I (< 0.11 ng/ml) 0.05 Total Protein (6.3 - 8.2 g/dL) 8.3 H Albumin (3.5 - 5.0 g/dL) 5.0 Amylase (30 - 110 U/L) 183 H Lipase (23 - 300 U/L) 93 Coagulation PT (9.4 - 12.5 SEC) 15.9 H INR (0.90 - 1.19) 1.52 H APTT (25 - 37 SEC) 45 H Hematology CBC w Diff NO MAN DIFF REQ WBC (4.8 - 10.8 /CUMM) 15.1 H RBC (4.20 - 5.40 /CUMM) 5.09 Hgb (12.0 - 16.0 G/DL) 15.7 Hct (37 - 47 %) 48.0 H MCV (81.0 - 99.0 FL) 94.4 MCH (27.0 - 31.0 PG) 30.9 RDW (11.5 - 14.5 %) 15.8 H Plt Count (130 - 400 /CUMM) 187 MPV (7.4 - 10.4 FL) 8.6 Gran % (42.2 - 75.2 %) 90.5 H Lymphocytes % (20.5 - 51.1 %) 7.8 L Monocytes % (1.7 - 9.3 %) 0.9 L Eosinophils % (0 - 5 %) 0.2 Basophils % (0.0 - 2.0 %) 0.6 Absolute Granulocytes (1.4 - 6.5 /CUMM) 13.7 H Absolute Lymphocytes (1.2 - 3.4 /CUMM) 1.2 Absolute Monocytes (0.10 - 0.60 /CUMM) 0.1 Absolute Eosinophils (0.0 - 0.7 /CUMM) 0 Absolute Basophils (0.0 - 0.2 /CUMM) 0.1 PUBS MCHC (33.0 - 37.0 G/DL) 32.8 L A/P; 61 y/o F with pmh sig for hypertension, hyperlipidemia, peripheral vascular disease status post right AKA, coronary artery disease status post open heart surgery with stent placement and valve replacement(November 2016) on Plavix, emphysema, hypothyroidism admitted with abd pain. n/v/d, pancolitis Infectious vs ischemic. Continue nothing by mouth and IV fluids. Continue IV antibiotics. Appreciate surgical input, no surgical intervention needed per surgery. Please consult GI. We'll follow-up on the stool studies. Noted slight decrease in lactate levels but leukocytosis was worse. DVT px; ALPS.
--- NOTE | 2017-04-18 17:22 | Event Note ---
Event Note Event Note: Got informed around 5:00 pm that pt had 1/4 bottles GPC in chains. Spoke with attending. At this time will change abx to Unasyn and will d/c Ceftriaxone and Flagyll.
--- NOTE | 2017-04-18 19:09 | Cons- Gastroenterology ---
General Information and HPI Consulting Request Date of Consult: 04/18/17 ([facility]/GASTROENTEROLOGY) Requested By: Dick MONTIEL,Khushi Reason for Consult: Bloody diarrhea Source of Information: patient History of Present Illness: The patient has no antecedent GI history or symptoms. Specifically, no previous GI bleeding, chronic or recurrent abdominal pain, heartburn/dysphagia/ indigestion, recurrent nausea, or abnormal bowel habits. She believes she had a normal colonoscopy 2 years ago at [facility]. She takes aspirin, but no NSAIDs. 2 nights ago, after dinner, she had the abrupt onset of nausea and vomiting, and diarrhea. At some point this became bloody. It was accompanied by diffuse abdominal pain, worse in the lower abdomen. She had cold sweats, but no documented fever. She developed lightheadedness, but did not pass out. By yesterday she had arm numbness, and she presented to the emergency room she was admitted. Of note, there was no antecedent ingestion of restaurant food, raw or undercooked food, antibiotics, travel, or known exposure to illness. She believes she had 2 bowel movements today, although nursing documents only one early this morning, with accompanying bright red blood. Her abdominal pain is minimal although she now has lower back pain. Her nausea has dissipated. Patient has significant peripheral arterial/venous disease, is status post right AKA, has coronary artery disease status post CABG and has had a valve replacement. As above, she does not have postprandial abdominal pain. Family history is negative for GI malignancy and inflammatory bowel disease. Allergies/Medications Allergies: Coded Allergies: erythromycin base (UNKNOWN PT DOESNT REMEMBER 08/22/16) Home Med List: Amlodipine Besylate 10 MG TABLET 1 TAB PO DAILY BP (Reported) Aspirin (Ecotrin*) 81 MG TABLET.DR 1 TAB PO DAILY HEART/BLOOD (Reported) Atorvastatin Calcium 80 MG TABLET 1 TAB PO Q2D CHOLESTEROL (Reported) Clopidogrel Bisulfate (Clopidogrel) 75 MG TABLET 1 TAB PO DAILY BLOOD THINNER (Reported) Levothyroxine Sodium 112 MCG TABLET 1 TAB PO DAILY AC THYROID (Reported) Lisinopril 20 MG TABLET 1 TAB PO DAILY BP (Reported) Metoprolol Succinate 50 MG TAB.ER.24H 1 TAB PO DAILY HEART (Reported) Current Medications: Current Medications Sig/Eduardo Start time Last Medication Dose Route Stop Time Status Admin Acetaminophen 650 MG Q6PRN PRN 04/18 0445 AC PO Acetaminophen 1,000 MG Q6P PRN 04/18 0445 AC IV Ampicillin Sodium/ 0 .STK-MED ONE 04/18 1733 DC Sulbactam Sodium .ROUTE Ampicillin Sodium/ 1,500 MG ONCE ONE 04/18 1730 DC 04/18 Sulbactam Sodium IV 04/18 1759 1759 Sodium Chloride 100 ML Ampicillin Sodium/ 3,000 MG ONCE ONE 04/18 0145 CAN Sulbactam Sodium IV 04/18 0214 Sodium Chloride 100 ML Ceftriaxone Sodium 1,000 MG 2200 04/18 2200 CAN IV Ceftriaxone Sodium 1,000 MG DAILY 04/18 1000 DC IV Ceftriaxone Sodium 0 .STK-MED ONE 04/18 0225 DC .ROUTE Ceftriaxone Sodium 1,000 MG ONCE ONE 04/18 0215 DC 04/18 IV 04/18 0216 0234 Hydromorphone HCl 0 .STK-MED ONE 04/18 0132 DC .ROUTE Hydromorphone HCl 0.5 MG ONCE ONE 04/18 0130 DC 04/18 IV 04/18 0131 0131 Metronidazole 500 MG IQ8 04/18 1600 DC N/A 1 UNIT IV Metronidazole 500 MG IQ8 04/18 0215 DC 04/18 N/A 1 UNIT IV 1612 Morphine Sulfate 0 .STK-MED ONE 04/18 1806 DC .ROUTE Morphine Sulfate 0 .STK-MED ONE 04/18 1403 DC .ROUTE Morphine Sulfate 0 .STK-MED ONE 04/18 0944 DC .ROUTE Morphine Sulfate 0 .STK-MED ONE 04/18 0517 DC .ROUTE Morphine Sulfate 1 MG Q4P PRN 04/18 0445 AC 04/18 IV 1401 Sodium Chloride 1,000 ML Q10H 04/18 0445 AC 04/18 IV 1512 Sodium Chloride 1,000 ML BOLUS ONE 04/18 0045 DC 04/18 IV 04/18 0144 0100 Sodium Chloride 1,000 ML BOLUS ONE 04/18 0045 DC 04/18 IV 04/18 0144 0125 Past History Travel History Traveled to [place] past 21 day No Medical History Neurological: VASCULAR ISSUES PERIPHERAL VASCULAR DISEASE EENT: NONE Cardiovascular: hypertension, PVD Respiratory: bronchitis, emphysema, pneumonia Gastrointestinal: ASCITES ISCHEMIC BOWEL? Hepatic: NONE Renal: NONE Musculoskeletal: chronic back pain, R ABOVE KNEE AMPUTATION SCOLIOSIS Psychiatric: HISTORY OF DRUG ABUSE Endocrine: hypothyroidism (noncompliance with medication) Blood Disorders: NONE Cancer(s): NONE GLASS BREAKER/Reproductive: NONE Surgical History Surgical History: R AKA(2016), CHOLY, UPPER EXTREMITY ARTERIAL STENT Family History Relations & Conditions If Any: MOTHER FH: heart attack, Onset: 40-50. FATHER FH: emphysema Psychosocial History Where Do You Live? Home Who Do You Live With? spouse Services at Home: None Primary Language: Scottish Smoking Status: Current Everyday Smoker Living Will? no Power of Educational Interpreter/HCP? no Functional Ability ADLs Independent: dressing, eating, toileting, bathing. Ambulation: walker IADLs Independent: finances, telephone, medication admin. Needs Assist: transportation. Review of Systems Review of Systems Constitutional: Reports: chills, diaphoresis, weakness. EENTM: Denies: icterus, epistaxis. Cardiovascular: Denies: chest pain, peripheral edema, syncope. Respiratory: Denies: cough, short of breath. GI: Reports: see HPI. Genitourinary: Denies: dysuria, hematuria. Musculoskeletal: Denies: muscle stiffness, neck pain. Skin: Denies: jaundice, lesions. Neurological/Psychological: Reports: headache. Denies: cognitive dysfunction. Hematologic/Endocrine: Reports: bleeding. Denies: bruising. Exam & Diagnostic Data Vital Signs and I&O Vital Signs Date Time Temp Pulse Resp B/P B/P Pulse O2 O2 Flow FiO2 Mean Ox Delivery Rate 04/18 1726 97.7 63 18 101/64 92 Room Air 04/18 1508 98.2 65 18 112/67 94 Room Air 04/18 1316 97.9 70 20 112/69 95 Room Air 04/18 1026 98.6 74 18 117/75 95 Room Air 04/18 0752 98.0 77 20 126/71 94 Room Air 04/18 0217 98.2 72 18 138/87 96 Room Air 04/17 2347 96 Room Air 04/17 2342 97.3 70 18 106/69 96 Room Air 04/17 2228 97.1 91 18 122/85 Intake & Output 04/18 1600 04/18 0400 04/17 1600 04/17 0400 04/16 1600 04/16 040 Intake Total Output Total Balance Patient 98 lb Weight Weight Estimated Measurement Method Physical Exam: Well-nourished white female, no apparent distress. Alert and oriented with normal cognition. Skin with tattoos, and decreased turgor, but without lesion/ rash/jaundice/mottling/petechiae. No adenopathy. Sclera anicteric. Edentulous , moist mucous membranes. Neck supple without mass or thyromegaly. Heart regular rhythm. Status post sternotomy. Lungs with decreased breath sounds in the base of left side. Abdomen with midline scar, nondistended, bowel sounds present; mild diffuse lower abdominal tenderness without mass, organomegaly. Status post right AKA. Left lower extremity without edema, and with 1+ pulses. Results Pertinent Lab Results: Laboratory Tests 04/18 04/18 04/18 04/18 1120 0955 0821 0520 Chemistry Lactic Acid (0.7 - 2.1 mmol/L) 2.0 2.3 H 3.4 H Toxicology Urine Opiates Screen (>2000 NG/ML) 1243.00 Methadone Screen (>300 NG/ML) < 40 Barbiturate Screen (>200 NG/ML) < 60 Ur Phencyclidine Scrn (>25 NG/ML) < 6.00 Amphetamines Screen (>1000 NG/ML) < 100 U Benzodiazepines Scrn (>200 NG/ML) < 85 Urine Cocaine Screen (>300 NG/ML) < 50 Urine Cannabis Screen (>50 NG/ML) < 5.00 Urines Urinalysis LIGHT H Urine Color (YEL,AMB,STR) YEL Urine Clarity (CLEAR) CLEAR Urine pH (5.0 - 8.0) 7.0 Ur Specific [place] (1.001 - 1.035) 1.010 Urine Protein (NEG,<30 MG/DL) 100 H Urine Ketones (NEG) NEG Urine Nitrite (NEG) POS H Urine Bilirubin (NEG) NEG Urine Urobilinogen (0.1 - 1.0 EU/dl) 0.2 Ur Leukocyte Esterase (NEG) NEG Ur Microscopic SEDIMENT EXAMINED Urine RBC (0 - 5 /HPF) RARE Urine WBC (0 - 2 /HPF) 3-5 H Ur Epithelial Cells (NONE,FEW) FEW Urine Bacteria (NEG/NONE) MANY H Urine Hemoglobin (NEG) NEG Urine Glucose (N MG/DL) NEG 04/18 04/18 04/17 0520 0123 2320 Chemistry Sodium (137 - 145 mmol/L) 145 Potassium (3.5 - 5.1 mmol/L) 3.9 Chloride (98 - 107 mmol/L) 108 H Carbon Dioxide (22 - 30 mmol/L) 22 Anion Gap (5 - 16) 15 BUN (7 - 17 mg/dL) 18 H Creatinine (0.5 - 1.0 mg/dL) 1.2 H Estimated GFR (>60 ml/min) 46 L BUN/Creatinine Ratio (7 - 25 %) 15.0 Lactic Acid (0.7 - 2.1 mmol/L) 4.7 H 6.5 H Total Bilirubin (0.2 - 1.3 mg/dL) 0.7 Direct Bilirubin (< 0.4 mg/dL) 0.6 H AST (14 - 36 U/L) 99 H ALT (9 - 52 U/L) 102 H Alkaline Phosphatase (<127 U/L) 208 H Total Protein (6.3 - 8.2 g/dL) 6.7 Albumin (3.5 - 5.0 g/dL) 4.0 Hematology CBC w Diff MAN DIFF ORDERED WBC (4.8 - 10.8 /CUMM) 18.7 H RBC (4.20 - 5.40 /CUMM) 4.00 L Hgb (12.0 - 16.0 G/DL) 12.3 Hct (37 - 47 %) 37.8 MCV (81.0 - 99.0 FL) 94.4 MCH (27.0 - 31.0 PG) 30.8 RDW (11.5 - 14.5 %) 15.7 H Plt Count (130 - 400 /CUMM) 156 MPV (7.4 - 10.4 FL) 9.1 Gran % (42.2 - 75.2 %) 92.4 H Lymphocytes % (20.5 - 51.1 %) 2.7 L Monocytes % (1.7 - 9.3 %) 4.8 Eosinophils % (0 - 5 %) 0.1 Basophils % (0.0 - 2.0 %) 0 Absolute Granulocytes (1.4 - 6.5 /CUMM) 17.2 H Segmented Neutrophils (42.2 - 75.2 %) 83 H Band Neutrophils (0.0 - 5.0 %) 7 H Absolute Lymphocytes (1.2 - 3.4 /CUMM) 0.5 L Lymphocytes (20.5 - 51.1 %) 5 L Monocytes (1.7 - 9.3 %) 5 Absolute Monocytes (0.10 - 0.60 /CUMM) 0.9 H Absolute Eosinophils (0.0 - 0.7 /CUMM) 0 Absolute Basophils (0.0 - 0.2 /CUMM) 0 Platelet Estimate (ADEQUATE) ADEQUATE Polychromasia 1+ Hypochromic-Microcytic 1+ Poikilocytosis 1+ Ovalocytes 1+ PUBS MCHC (33.0 - 37.0 G/DL) 32.6 L Other Body Source Fld Total RBCs Counted (%) 100 04/17 2320 Chemistry Sodium (137 - 145 mmol/L) 144 Potassium (3.5 - 5.1 mmol/L) 3.4 L Chloride (98 - 107 mmol/L) 101 Carbon Dioxide (22 - 30 mmol/L) 23 Anion Gap (5 - 16) 21 H BUN (7 - 17 mg/dL) 18 H Creatinine (0.5 - 1.0 mg/dL) 1.2 H Estimated GFR (>60 ml/min) 46 L BUN/Creatinine Ratio (7 - 25 %) 15.0 Glucose (65 - 99 mg/dL) 213 H Calcium (8.4 - 10.2 mg/dL) 9.7 Total Bilirubin (0.2 - 1.3 mg/dL) 1.5 H Direct Bilirubin (< 0.4 mg/dL) 1.3 H AST (14 - 36 U/L) 155 H ALT (9 - 52 U/L) 129 H Alkaline Phosphatase (<127 U/L) 303 H Troponin I (< 0.11 ng/ml) 0.05 Total Protein (6.3 - 8.2 g/dL) 8.3 H Albumin (3.5 - 5.0 g/dL) 5.0 Amylase (30 - 110 U/L) 183 H Lipase (23 - 300 U/L) 93 Coagulation PT (9.4 - 12.5 SEC) 15.9 H INR (0.90 - 1.19) 1.52 H APTT (25 - 37 SEC) 45 H Hematology CBC w Diff NO MAN DIFF REQ WBC (4.8 - 10.8 /CUMM) 15.1 H RBC (4.20 - 5.40 /CUMM) 5.09 Hgb (12.0 - 16.0 G/DL) 15.7 Hct (37 - 47 %) 48.0 H MCV (81.0 - 99.0 FL) 94.4 MCH (27.0 - 31.0 PG) 30.9 RDW (11.5 - 14.5 %) 15.8 H Plt Count (130 - 400 /CUMM) 187 MPV (7.4 - 10.4 FL) 8.6 Gran % (42.2 - 75.2 %) 90.5 H Lymphocytes % (20.5 - 51.1 %) 7.8 L Monocytes % (1.7 - 9.3 %) 0.9 L Eosinophils % (0 - 5 %) 0.2 Basophils % (0.0 - 2.0 %) 0.6 Absolute Granulocytes (1.4 - 6.5 /CUMM) 13.7 H Absolute Lymphocytes (1.2 - 3.4 /CUMM) 1.2 Absolute Monocytes (0.10 - 0.60 /CUMM) 0.1 Absolute Eosinophils (0.0 - 0.7 /CUMM) 0 Absolute Basophils (0.0 - 0.2 /CUMM) 0.1 PUBS MCHC (33.0 - 37.0 G/DL) 32.8 L Imaging/Other Studies: CT scan of the abdomen and pelvis without contrast IMPRESSION: Pancolitis of uncertain etiology, possibly infectious, inflammatory, or ischemic in nature. Normal liver, gallbladder, biliary tree Assessment/Plan Assessment/Recommendations: 1. Bloody diarrhea, abdominal pain and CT scan suggesting pancolitis. Clinically, this would be acute given no antecedent GI history/symptoms. This is likely infectious. Although the patient is certainly at risk for ischemic colitis, the imaging findings and indeed presentation are atypical. The persistent and indeed worsening leukocytosis is some concern. The patient has now been found to be growing gram-positive cocci in chains, in only one of 4 bottles, and this may be a contaminant. 2. Abnormal liver associated enzymes. This are improving. Differential diagnosis includes ischemic/hemodynamic, infectious. Recommendations * Stool culture, vibrio, C. difficile toxin * Follow LFTs and INR * Hepatitis A IgM, hepatitis B surface antigen, hepatitis C antibody * Clear liquid diet * Anticholinergic such as dicyclomine or hyoscyamine as needed for pain and diarrhea. * Consider infectious disease consultation pending identification of gram- positive cocci. * The use of antibiotics in infectious colitis is controversial, although agree with coverage of gram-positive cocci for the time being. Consult Acknowledgment - Thank you for your consult request.
[2017-04-18 23:23] VITALS: BP 116/78
[2017-04-19 07:11] VITALS: BP 120/72
--- NOTE | 2017-04-19 08:16 | PN- Housestaff ---
Subjective Follow-up For: Pancolitis with Sepsis Subjective: The patient was seen and examined. Reports having occasional back pain. Still has abdominal discomfort for and for by mouth intake. Denies any dizziness, lightheadedness, nausea, vomiting, chest pain, shortness of breath, abdominal pain. Vital signs are stable. No overnight events reported. Review of Systems Constitutional: Reports: see HPI. Objective Last 24 Hrs of Vital Signs/I&O Vital Signs Date Time Temp Pulse Resp B/P B/P Pulse O2 O2 Flow FiO2 Mean Ox Delivery Rate 04/19 1518 97.9 55 20 145/80 91 Room Air 04/19 0711 97.6 61 18 120/72 94 04/18 2323 97.8 62 20 116/78 94 Room Air 04/18 2237 98.0 66 18 115/71 94 Room Air 04/18 2105 97.5 65 18 154/91 95 Room Air Intake & Output 04/19 1600 04/19 0800 04/19 0000 Intake Total 1200 800 Output Total 400 700 Balance 800 100 Intake, IV 800 800 Intake, Oral 400 0 Number 0 0 Bowel Movements Output, Urine 400 700 Patient 89 lb 0.5 oz Weight Weight Bed scale Measurement Method Physical Exam General Appearance: Alert, Cooperative, No Acute Distress Skin: No Rashes HEENT: Atraumatic, PERRLA, EOMI, Mucous Membr. moist/pink Neck: Supple, No JVD, No thryomegaly, +2 Carotid Pulse wo Bruit, No LAD Lymphatic: Cervical nl Cardiovascular: Regular Rate, Normal S1, Normal S2, No Murmurs, Gallops, Rubs Lungs: Clear to Auscultation, Normal Air Movement Abdomen: Normal Bowel Sounds, Soft, No Tenderness, No Hepatospenomegaly, No Masses Neurological: Normal Speech Extremities: No Clubbing, No Cyanosis, No Edema Other Physical Findings: No spinal or paraspinal tenderness on the back, no tenderness on palpation. Current Medications: Current Medications Sig/Eduardo Start time Last Medication Dose Route Stop Time Status Admin Acetaminophen 650 MG Q6PRN PRN 04/18 0445 AC PO Acetaminophen 1,000 MG Q6P PRN 04/18 0445 AC IV Ampicillin Sodium/ 3,000 MG Q6 04/19 1200 AC 04/19 Sulbactam Sodium IV 1827 Sodium Chloride 100 ML Dextrose/Water 1,000 ML Q20H 04/19 1415 CAN IV 04/20 1014 Dicyclomine HCl 20 MG 4 TIMES/DAY PRN 04/19 0045 AC PO Morphine Sulfate 0 .STK-MED ONE 04/18 2104 DC .ROUTE Morphine Sulfate 1 MG Q4P PRN 04/18 0445 AC 04/19 IV 1708 Potassium Chloride 20 MEQ Q20H 04/19 1415 AC 04/19 Dextrose/Water 1,000 ML IV 1619 Potassium Chloride 10 MEQ ONCE ONE 04/19 1400 CAN IV 04/19 1401 Sodium Chloride 1,000 ML Q10H 04/18 0445 DC 04/19 IV 0502 Last 24 Hrs of Lab/Imer Results Last 24 Hrs of Labs/Mics: Laboratory Tests 04/19/17 0730: Anion Gap 13, Estimated GFR > 60, BUN/Creatinine Ratio 16.7, CBC w Diff NO MAN DIFF REQ, RBC 3.06 L, MCV 94.7, MCH 31.2 H, RDW 16.5 H, MPV 9.4, Gran % 85.8 H, Lymphocytes % 8.6 L, Monocytes % 4.4, Eosinophils % 0.6, Basophils % 0.6, Absolute Granulocytes 10.9 H, Absolute Lymphocytes 1.1 L, Absolute Monocytes 0.6, Absolute Eosinophils 0.1, Absolute Basophils 0.1, PUBS MCHC 32.9 L, Hepatitis A IgM Ab NONREACTIVE, Hep Bs Antigen NONREACTIVE, Hepatitis C Antibody NONREACTIVE Microbiology 04/19 1638 STOOL: Stool Culture - COLB 04/19 0037 STOOL: Vibrio Culture - COLB Assessment/Plan Assessment: Patient is a 61-year-old female with a past medical history significant for hypertension and hyperlipidemia, peripheral vascular disease, coronary artery disease who presented to the ED for the evaluation of worsening nausea vomiting diarrhea. CT abdomen and pelvis showed: Pancolitis of uncertain etiology, possibly infectious, inflammatory, or ischemic in nature.Emphysema. Additional chronic changes as above. Problem list/plan #Pancolitis(differentials include infectious, inflammatory, or ischemic) * Patient has been evaluated by surgery, recommended to continue with conservative management for now. * Continue IV hydration and bowel rest; advance diet as tolerated * Trend lactic acid levels. * DC IV Cipro And Flagyl, started Unasyn * In case of worsening symptoms increasing lactate levels/ Increasing WBC count/ increasing bicarbonate, surgical intervention would be done. * Hold aspirin and Plavix; evaluate tomorrow when to restart * Hold antihypertensives. #Hypokalemia, hypernatremia. * Will start on KCl in dextrose water * monitor electrolytes and replete accordingly C/w all her home medications DVT prophylaxis with alps Patient is Full code Problem List: 1. Colitis Pain Ratin Pain Location: NA Pain Goal: Remain pain free Pain Plan: NA Tomorrow's Labs & Rationales: CBC to monitor H&H BEP electrolytes
[2017-04-19 08:27] LABS: ABSOLUTE BASOPHIL COUNT 0.1 /CUMM (0.0-0.2); ABSOLUTE EOSINOPHIL COUNT 0.1 /CUMM (0.0-0.7); ABSOLUTE LYMPH COUNT 1.1 /CUMM (1.2-3.4); ABSOLUTE MONOCYTE COUNT 0.6 /CUMM (0.10-0.60)
[2017-04-19 08:48] LABS: ABSOLUTE GRANULOCYTE CT 10.9 /CUMM (1.4-6.5); BASOPHIL % 0.6 % (0.0-2.0); EOSINOPHIL % 0.6 % (0-5); MEAN CORPUSCULAR HGB 31.2 PG (27.0-31.0); MEAN CORPUSCULAR HGB CONC 32.9 G/DL (33.0-37.0); MEAN CORPUSCULAR VOLUME 94.7 FL (81.0-99.0); MEAN PLATELET VOLUME 9.4 FL (7.4-10.4); PLATELET COUNT 130 /CUMM (130-400); RBC DISTRIBUTION WIDTH 16.5 % (11.5-14.5); RED BLOOD CELL CT 3.06 /CUMM (4.20-5.40); WHITE BLOOD CELL COUNT 12.7 /CUMM (4.8-10.8)
[2017-04-19 08:53] LABS: GRANULOCYTE % 85.8 % (42.2-75.2)
--- NOTE | 2017-04-19 14:19 | PN- Att Addend ---
Attending Addendum Attending Brief Note Patient seen and examined, slightly better than yesterday. Still containing of abdominal pain. Started on clear liquid diet and so far tolerating well. Did not have any further diarrhea therefore stool studies were not sent. Vital Signs Date Time Temp Pulse Resp B/P B/P Pulse O2 O2 Flow FiO2 Mean Ox Delivery Rate 04/19 0711 97.6 61 18 120/72 94 04/18 2323 97.8 62 20 116/78 94 Room Air 04/18 2237 98.0 66 18 115/71 94 Room Air 04/18 2105 97.5 65 18 154/91 95 Room Air 04/18 1906 98.5 67 18 103/56 91 Room Air 04/18 1726 97.7 63 18 101/64 92 Room Air 04/18 1508 98.2 65 18 112/67 94 Room Air on exam; aox3, nad. cv; s1,s2, rrr resp; clear abd; soft, nt, bs+ ext; no edema. Laboratory Tests 04/19 0730 Chemistry Sodium (137 - 145 mmol/L) 147 H Potassium (3.5 - 5.1 mmol/L) 3.1 L Chloride (98 - 107 mmol/L) 115 H Carbon Dioxide (22 - 30 mmol/L) 19 L Anion Gap (5 - 16) 13 BUN (7 - 17 mg/dL) 15 Creatinine (0.5 - 1.0 mg/dL) 0.9 Estimated GFR (>60 ml/min) > 60 BUN/Creatinine Ratio (7 - 25 %) 16.7 Hematology CBC w Diff NO MAN DIFF REQ WBC (4.8 - 10.8 /CUMM) 12.7 H RBC (4.20 - 5.40 /CUMM) 3.06 L Hgb (12.0 - 16.0 G/DL) 9.5 L Hct (37 - 47 %) 29.0 L MCV (81.0 - 99.0 FL) 94.7 MCH (27.0 - 31.0 PG) 31.2 H RDW (11.5 - 14.5 %) 16.5 H Plt Count (130 - 400 /CUMM) 130 MPV (7.4 - 10.4 FL) 9.4 Gran % (42.2 - 75.2 %) 85.8 H Lymphocytes % (20.5 - 51.1 %) 8.6 L Monocytes % (1.7 - 9.3 %) 4.4 Eosinophils % (0 - 5 %) 0.6 Basophils % (0.0 - 2.0 %) 0.6 Absolute Granulocytes (1.4 - 6.5 /CUMM) 10.9 H Absolute Lymphocytes (1.2 - 3.4 /CUMM) 1.1 L Absolute Monocytes (0.10 - 0.60 /CUMM) 0.6 Absolute Eosinophils (0.0 - 0.7 /CUMM) 0.1 Absolute Basophils (0.0 - 0.2 /CUMM) 0.1 PUBS MCHC (33.0 - 37.0 G/DL) 32.9 L Serology Hepatitis A IgM Ab (NONREACTIVE) NONREACTIVE Hep Bs Antigen (NONREACTIVE) NONREACTIVE Hepatitis C Antibody (NONREACTIVE) NONREACTIVE A/P; 61 y/o F with pmh sig for hypertension, hyperlipidemia, peripheral vascular disease status post right AKA, coronary artery disease status post open heart surgery with stent placement and valve replacement(November 2016) on Plavix, emphysema, hypothyroidism admitted with abd pain. n/v/d, pancolitis likely Infectious. One set of blood culture growing gram-positive cocci in chains. I except been switched to Unasyn. We'll follow-up on the final culture results. Keep on clear liquid diet today and advance slowly to full liquids in the morning if continues to tolerate. Will continue gentle IV hydration. If patient has further bowel movements, we need to check the stool studies including stool for C. difficile, culture and review as recommended by GI. Please follow further GI recommendations. Lactate normalized. White blood cell count improving. Noted a drop in H&H but that is not far from her baseline. Please replete potassium. DVT prophylaxis. ALPS.
--- NOTE | 2017-04-19 14:41 | PN- Gastroenterology ---
Assessment/Plan Assessment/Recommendations: 1. Bloody diarrhea, abdominal pain and CT scan suggesting pancolitis. Clinically improved, including leukocytosis. The patient has now been found to be growing gram-positive cocci in chains, in only one of 4 bottles, and this may be a contaminant. C. difficile toxin negative. 2. Abnormal liver associated enzymes. This were improving; not rechecked today. Differential diagnosis includes ischemic/hemodynamic, infectious. Negative hepatitis A/P/C serologies. Recommendations * Await Stool culture, vibrio * Follow LFTs and INR * Advance to full liquid diet * Anticholinergic such as dicyclomine or hyoscyamine as needed for pain and diarrhea. * Consider infectious disease consultation pending identification of gram- positive cocci. * The use of antibiotics in infectious colitis is controversial, although agree with coverage of gram-positive cocci for the time being. Subjective Subjective: Some "gassy" abdominal discomfort but no pain. Transient nausea. Tolerating clear liquid diet. No bowel movements or blood per rectum. Objective Vital Signs and I&Os Vital Signs Date Time Temp Pulse Resp B/P B/P Pulse O2 O2 Flow FiO2 Mean Ox Delivery Rate 04/19 0711 97.6 61 18 120/72 94 04/18 2323 97.8 62 20 116/78 94 Room Air 04/18 2237 98.0 66 18 115/71 94 Room Air 04/18 2105 97.5 65 18 154/91 95 Room Air 04/18 1906 98.5 67 18 103/56 91 Room Air 04/18 1726 97.7 63 18 101/64 92 Room Air 04/18 1508 98.2 65 18 112/67 94 Room Air Intake & Output 04/19 1600 04/19 0400 04/18 1600 04/18 0400 04/17 1600 04/17 0400 Intake Total 2000 Output Total 700 Balance 1300 Intake, IV 1600 Intake, Oral 400 Number 0 Bowel Movements Output, Urine 700 Patient 89 lb 0.5 oz 98 lb Weight Weight Bed scale Estimated Measurement Method Physical Exam: Mild lower abdominal tenderness. Current Medications: Current Medications Sig/Eduardo Start time Last Medication Dose Route Stop Time Status Admin Acetaminophen 650 MG Q6PRN PRN 04/18 0445 AC PO Acetaminophen 1,000 MG Q6P PRN 04/18 0445 AC IV Ampicillin Sodium/ 3,000 MG Q6 04/19 1200 AC 04/19 Sulbactam Sodium IV 1404 Sodium Chloride 100 ML Ampicillin Sodium/ 0 .STK-MED ONE 04/18 1733 DC Sulbactam Sodium .ROUTE Ampicillin Sodium/ 1,500 MG ONCE ONE 04/18 1730 DC 04/18 Sulbactam Sodium IV 04/18 1759 1759 Sodium Chloride 100 ML Ceftriaxone Sodium 1,000 MG 2200 04/18 2200 CAN IV Dextrose/Water 1,000 ML Q20H 04/19 1415 CAN IV 04/20 1014 Dicyclomine HCl 20 MG 4 TIMES/DAY PRN 04/19 0045 AC PO Metronidazole 500 MG IQ8 04/18 1600 DC N/A 1 UNIT IV Metronidazole 500 MG IQ8 04/18 0215 DC 04/18 N/A 1 UNIT IV 1612 Morphine Sulfate 0 .STK-MED ONE 04/18 2104 DC .ROUTE Morphine Sulfate 0 .STK-MED ONE 04/18 1806 DC .ROUTE Morphine Sulfate 1 MG Q4P PRN 04/18 0445 AC 04/19 IV 1235 Potassium Chloride 20 MEQ Q20H 04/19 1415 AC Dextrose/Water 1,000 ML IV Potassium Chloride 10 MEQ ONCE ONE 04/19 1400 CAN IV 04/19 1401 Sodium Chloride 1,000 ML Q10H 04/18 0445 DC 04/19 IV 0502 Results Pertinent Lab Results: Laboratory Tests 04/19 04/18 0730 1120 Chemistry Sodium (137 - 145 mmol/L) 147 H Potassium (3.5 - 5.1 mmol/L) 3.1 L Chloride (98 - 107 mmol/L) 115 H Carbon Dioxide (22 - 30 mmol/L) 19 L Anion Gap (5 - 16) 13 BUN (7 - 17 mg/dL) 15 Creatinine (0.5 - 1.0 mg/dL) 0.9 Estimated GFR (>60 ml/min) > 60 BUN/Creatinine Ratio (7 - 25 %) 16.7 Lactic Acid (0.7 - 2.1 mmol/L) 2.0 Hematology CBC w Diff NO MAN DIFF REQ WBC (4.8 - 10.8 /CUMM) 12.7 H RBC (4.20 - 5.40 /CUMM) 3.06 L Hgb (12.0 - 16.0 G/DL) 9.5 L Hct (37 - 47 %) 29.0 L MCV (81.0 - 99.0 FL) 94.7 MCH (27.0 - 31.0 PG) 31.2 H RDW (11.5 - 14.5 %) 16.5 H Plt Count (130 - 400 /CUMM) 130 MPV (7.4 - 10.4 FL) 9.4 Gran % (42.2 - 75.2 %) 85.8 H Lymphocytes % (20.5 - 51.1 %) 8.6 L Monocytes % (1.7 - 9.3 %) 4.4 Eosinophils % (0 - 5 %) 0.6 Basophils % (0.0 - 2.0 %) 0.6 Absolute Granulocytes (1.4 - 6.5 /CUMM) 10.9 H Absolute Lymphocytes (1.2 - 3.4 /CUMM) 1.1 L Absolute Monocytes (0.10 - 0.60 /CUMM) 0.6 Absolute Eosinophils (0.0 - 0.7 /CUMM) 0.1 Absolute Basophils (0.0 - 0.2 /CUMM) 0.1 PUBS MCHC (33.0 - 37.0 G/DL) 32.9 L Serology Hepatitis A IgM Ab (NONREACTIVE) NONREACTIVE Hep Bs Antigen (NONREACTIVE) NONREACTIVE Hepatitis C Antibody (NONREACTIVE) NONREACTIVE 04/18 04/18 04/18 0955 0821 0520 Chemistry Lactic Acid (0.7 - 2.1 mmol/L) 2.3 H 3.4 H Toxicology Urine Opiates Screen (>2000 NG/ML) 1243.00 Methadone Screen (>300 NG/ML) < 40 Barbiturate Screen (>200 NG/ML) < 60 Ur Phencyclidine Scrn (>25 NG/ML) < 6.00 Amphetamines Screen (>1000 NG/ML) < 100 U Benzodiazepines Scrn (>200 NG/ML) < 85 Urine Cocaine Screen (>300 NG/ML) < 50 Urine Cannabis Screen (>50 NG/ML) < 5.00 Urines Urinalysis LIGHT H Urine Color (YEL,AMB,STR) YEL Urine Clarity (CLEAR) CLEAR Urine pH (5.0 - 8.0) 7.0 Ur Specific [place] (1.001 - 1.035) 1.010 Urine Protein (NEG,<30 MG/DL) 100 H Urine Ketones (NEG) NEG Urine Nitrite (NEG) POS H Urine Bilirubin (NEG) NEG Urine Urobilinogen (0.1 - 1.0 EU/dl) 0.2 Ur Leukocyte Esterase (NEG) NEG Ur Microscopic SEDIMENT EXAMINED Urine RBC (0 - 5 /HPF) RARE Urine WBC (0 - 2 /HPF) 3-5 H Ur Epithelial Cells (NONE,FEW) FEW Urine Bacteria (NEG/NONE) MANY H Urine Hemoglobin (NEG) NEG Urine Glucose (N MG/DL) NEG 04/18 04/18 04/17 0520 0123 2320 Chemistry Sodium (137 - 145 mmol/L) 145 Potassium (3.5 - 5.1 mmol/L) 3.9 Chloride (98 - 107 mmol/L) 108 H Carbon Dioxide (22 - 30 mmol/L) 22 Anion Gap (5 - 16) 15 BUN (7 - 17 mg/dL) 18 H Creatinine (0.5 - 1.0 mg/dL) 1.2 H Estimated GFR (>60 ml/min) 46 L BUN/Creatinine Ratio (7 - 25 %) 15.0 Lactic Acid (0.7 - 2.1 mmol/L) 4.7 H 6.5 H Total Bilirubin (0.2 - 1.3 mg/dL) 0.7 Direct Bilirubin (< 0.4 mg/dL) 0.6 H AST (14 - 36 U/L) 99 H ALT (9 - 52 U/L) 102 H Alkaline Phosphatase (<127 U/L) 208 H Total Protein (6.3 - 8.2 g/dL) 6.7 Albumin (3.5 - 5.0 g/dL) 4.0 Hematology CBC w Diff MAN DIFF ORDERED WBC (4.8 - 10.8 /CUMM) 18.7 H RBC (4.20 - 5.40 /CUMM) 4.00 L Hgb (12.0 - 16.0 G/DL) 12.3 Hct (37 - 47 %) 37.8 MCV (81.0 - 99.0 FL) 94.4 MCH (27.0 - 31.0 PG) 30.8 RDW (11.5 - 14.5 %) 15.7 H Plt Count (130 - 400 /CUMM) 156 MPV (7.4 - 10.4 FL) 9.1 Gran % (42.2 - 75.2 %) 92.4 H Lymphocytes % (20.5 - 51.1 %) 2.7 L Monocytes % (1.7 - 9.3 %) 4.8 Eosinophils % (0 - 5 %) 0.1 Basophils % (0.0 - 2.0 %) 0 Absolute Granulocytes (1.4 - 6.5 /CUMM) 17.2 H Segmented Neutrophils (42.2 - 75.2 %) 83 H Band Neutrophils (0.0 - 5.0 %) 7 H Absolute Lymphocytes (1.2 - 3.4 /CUMM) 0.5 L Lymphocytes (20.5 - 51.1 %) 5 L Monocytes (1.7 - 9.3 %) 5 Absolute Monocytes (0.10 - 0.60 /CUMM) 0.9 H Absolute Eosinophils (0.0 - 0.7 /CUMM) 0 Absolute Basophils (0.0 - 0.2 /CUMM) 0 Platelet Estimate (ADEQUATE) ADEQUATE Polychromasia 1+ Hypochromic-Microcytic 1+ Poikilocytosis 1+ Ovalocytes 1+ PUBS MCHC (33.0 - 37.0 G/DL) 32.6 L Other Body Source Fld Total RBCs Counted (%) 100 04/17 2320 Chemistry Sodium (137 - 145 mmol/L) 144 Potassium (3.5 - 5.1 mmol/L) 3.4 L Chloride (98 - 107 mmol/L) 101 Carbon Dioxide (22 - 30 mmol/L) 23 Anion Gap (5 - 16) 21 H BUN (7 - 17 mg/dL) 18 H Creatinine (0.5 - 1.0 mg/dL) 1.2 H Estimated GFR (>60 ml/min) 46 L BUN/Creatinine Ratio (7 - 25 %) 15.0 Glucose (65 - 99 mg/dL) 213 H Calcium (8.4 - 10.2 mg/dL) 9.7 Total Bilirubin (0.2 - 1.3 mg/dL) 1.5 H Direct Bilirubin (< 0.4 mg/dL) 1.3 H AST (14 - 36 U/L) 155 H ALT (9 - 52 U/L) 129 H Alkaline Phosphatase (<127 U/L) 303 H Troponin I (< 0.11 ng/ml) 0.05 Total Protein (6.3 - 8.2 g/dL) 8.3 H Albumin (3.5 - 5.0 g/dL) 5.0 Amylase (30 - 110 U/L) 183 H Lipase (23 - 300 U/L) 93 Coagulation PT (9.4 - 12.5 SEC) 15.9 H INR (0.90 - 1.19) 1.52 H APTT (25 - 37 SEC) 45 H Hematology CBC w Diff NO MAN DIFF REQ WBC (4.8 - 10.8 /CUMM) 15.1 H RBC (4.20 - 5.40 /CUMM) 5.09 Hgb (12.0 - 16.0 G/DL) 15.7 Hct (37 - 47 %) 48.0 H MCV (81.0 - 99.0 FL) 94.4 MCH (27.0 - 31.0 PG) 30.9 RDW (11.5 - 14.5 %) 15.8 H Plt Count (130 - 400 /CUMM) 187 MPV (7.4 - 10.4 FL) 8.6 Gran % (42.2 - 75.2 %) 90.5 H Lymphocytes % (20.5 - 51.1 %) 7.8 L Monocytes % (1.7 - 9.3 %) 0.9 L Eosinophils % (0 - 5 %) 0.2 Basophils % (0.0 - 2.0 %) 0.6 Absolute Granulocytes (1.4 - 6.5 /CUMM) 13.7 H Absolute Lymphocytes (1.2 - 3.4 /CUMM) 1.2 Absolute Monocytes (0.10 - 0.60 /CUMM) 0.1 Absolute Eosinophils (0.0 - 0.7 /CUMM) 0 Absolute Basophils (0.0 - 0.2 /CUMM) 0.1 PUBS MCHC (33.0 - 37.0 G/DL) 32.8 L
[2017-04-19 15:18] VITALS: BP 145/80
[2017-04-19 21:52] VITALS: BP 164/94
[2017-04-20 06:48] VITALS: BP 146/98
--- NOTE | 2017-04-20 07:33 | PN- Housestaff ---
Roz Garces 04/20/17 0732: Subjective Follow-up For: Pancolitis with sepsis Complaints: no complaints Subjective: Patient was seen and examined this morning. She was lying comfortably on bed with no significant complaints. She is able to tolerate clear liquids without any abdominal discomfort, nausea or vomiting. She remained hemodynamically stable and afebrile. She did not have any further bowel movements. Review of Systems Constitutional: Denies: diaphoresis, fever. Cardiovascular: Denies: chest pain, edema. Respiratory: Denies: hemoptysis, orthopnea. Gastrointestinal: Reports: abdominal pain. Denies: diarrhea, distention. Genitourinary: Denies: frequency, hematuria. Musculoskeletal: Denies: back pain, gout. Objective Last 24 Hrs of Vital Signs/I&O Vital Signs Date Time Temp Pulse Resp B/P B/P Pulse O2 O2 Flow FiO2 Mean Ox Delivery Rate 04/20 0648 97.8 64 18 146/98 91 04/19 2152 98.4 66 14 164/94 93 Room Air 04/19 1518 97.9 55 20 145/80 91 Room Air Intake & Output 04/20 1600 04/20 0800 04/20 0000 Intake Total 860 1320 Output Total 700 1000 Balance 160 320 Intake, IV 500 520 Intake, Oral 360 800 Number 0 Bowel Movements Output, Urine 700 1000 Patient 99 lb 0.51 oz Weight Physical Exam General Appearance: Alert, Oriented X3, Cooperative, No Acute Distress Lungs: Normal Air Movement Abdomen: Soft, No Tenderness Neurological: Strength at 5/5 X4 Ext, Normal Tone, Sensation Intact Current Medications: Current Medications Sig/Eduardo Start time Last Medication Dose Route Stop Time Status Admin Acetaminophen 650 MG Q6PRN PRN 04/18 0445 AC PO Acetaminophen 1,000 MG Q6P PRN 04/18 0445 AC IV Ampicillin Sodium/ 3,000 MG Q6 04/19 1200 AC 04/20 Sulbactam Sodium IV 0500 Sodium Chloride 100 ML Dextrose/Water 1,000 ML Q20H 04/19 1415 CAN IV 04/20 1014 Dicyclomine HCl 20 MG 4 TIMES/DAY PRN 04/19 0045 AC PO Morphine Sulfate 1 MG Q4P PRN 04/18 0445 AC 04/20 IV 1114 Patient Medication 1 ED ONE ONE 04/20 1200 AC Teaching ED 04/20 1201 Potassium Chloride 60 MEQ ONCE ONE 04/20 1100 DC 04/20 PO 04/20 1101 1115 Potassium Chloride 20 MEQ Q20H 04/19 1415 AC 04/19 Dextrose/Water 1,000 ML IV 1619 Potassium Chloride 10 MEQ ONCE ONE 04/19 1400 CAN IV 04/19 1401 Sodium Chloride 1,000 ML Q10H 04/18 0445 DC 04/19 IV 0502 Last 24 Hrs of Lab/Imer Results Last 24 Hrs of Labs/Mics: Laboratory Tests 04/20/17 0733: Anion Gap 13, Estimated GFR > 60, BUN/Creatinine Ratio 11.3, Total Bilirubin 0.6 , Direct Bilirubin 0.2, AST 53 H, ALT 61 H, Alkaline Phosphatase 120, Total Protein 6.1 L, Albumin 3.4 L, PT 11.3, INR 1.08, CBC w Diff NO MAN DIFF REQ, RBC 3.70 L, MCV 93.3, MCH 31.2 H, RDW 16.3 H, MPV 9.3, Gran % 83.3 H, Lymphocytes % 10.9 L, Monocytes % 4.2, Eosinophils % 1.3, Basophils % 0.3, Absolute Granulocytes 11.6 H, Absolute Lymphocytes 1.5, Absolute Monocytes 0.6, Absolute Eosinophils 0.2, Absolute Basophils 0, PUBS MCHC 33.5 Microbiology 04/19 1638 STOOL: Stool Culture - COLB Assessment/Plan Assessment: Patient is a 61-year-old female with a past medical history significant for hypertension and hyperlipidemia, peripheral vascular disease, coronary artery disease who presented to the ED for the evaluation of worsening nausea vomiting diarrhea. CT abdomen and pelvis showed: Pancolitis of uncertain etiology, possibly infectious, inflammatory, or ischemic in nature.Emphysema. Additional chronic changes as above. Problem list/plan #Pancolitis(differentials include infectious, inflammatory, or ischemic) * Patient has been evaluated by surgery, recommended to continue with conservative management for now. * Continue IV hydration and bowel rest; advance diet from clear liquid to full liquid. * Currently she is on Unasyn 3000 milligrams every 6 hours which was changed from Cipro and Flagyl due to gram-positive cocci in chains in her blood cultures. He is * In case of worsening symptoms increasing lactate levels/ Increasing WBC count/ increasing bicarbonate, surgical intervention would be done. * Her aspirin and Plavix were held on admission because of possibility of any surgical intervention. At this point patient does not need any surgical intervention we will resume her aspirin, Plavix and also her home dose of antihypertensives. #Hypokalemia, hypernatremia. * Will start on KCl in dextrose water and oral potassium for repletion. * monitor electrolytes and replete accordingly C/w all her home medications DVT prophylaxis with alps Patient is Full code Problem List: 1. Colitis Pain Ratin Pain Location: na Pain Goal: Remain pain free Pain Plan: morphine,bentyl Tomorrow's Labs & Rationales: cbc and bep Juanis Block MD 04/20/17 1213: Attending MD Review Statement Attending Statement Attending MD Statement: examined this patient, discuss w/resident/PA/[employer]OL[employer], agreed w/resident/PA/[employer], reviewed EMR data (avail), discussed with nursing, discussed with case mgmt, reviewed images, amended to note Attending Assessment/Plan: Patient seen and examined, feeling okay. So far tolerating full liquid diet. Did not have any vomiting or diarrhea. Vital Signs Date Time Temp Pulse Resp B/P B/P Pulse O2 O2 Flow FiO2 Mean Ox Delivery Rate 04/20 0648 97.8 64 18 146/98 91 04/19 2152 98.4 66 14 164/94 93 Room Air 04/19 1518 97.9 55 20 145/80 91 Room Air on exam; aox3, nad. cv; s1,s2, rrr resp; clear abd; soft, mild tenderness, bs+ ext; no edema. Laboratory Tests 04/20 0733 Chemistry Sodium (137 - 145 mmol/L) 143 Potassium (3.5 - 5.1 mmol/L) 3.2 L Chloride (98 - 107 mmol/L) 108 H Carbon Dioxide (22 - 30 mmol/L) 22 Anion Gap (5 - 16) 13 BUN (7 - 17 mg/dL) 9 Creatinine (0.5 - 1.0 mg/dL) 0.8 Estimated GFR (>60 ml/min) > 60 BUN/Creatinine Ratio (7 - 25 %) 11.3 Total Bilirubin (0.2 - 1.3 mg/dL) 0.6 Direct Bilirubin (< 0.4 mg/dL) 0.2 AST (14 - 36 U/L) 53 H ALT (9 - 52 U/L) 61 H Alkaline Phosphatase (<127 U/L) 120 Total Protein (6.3 - 8.2 g/dL) 6.1 L Albumin (3.5 - 5.0 g/dL) 3.4 L Coagulation PT (9.4 - 12.5 SEC) 11.3 INR (0.90 - 1.19) 1.08 Hematology CBC w Diff NO MAN DIFF REQ WBC (4.8 - 10.8 /CUMM) 14.0 H RBC (4.20 - 5.40 /CUMM) 3.70 L Hgb (12.0 - 16.0 G/DL) 11.6 L Hct (37 - 47 %) 34.5 L MCV (81.0 - 99.0 FL) 93.3 MCH (27.0 - 31.0 PG) 31.2 H RDW (11.5 - 14.5 %) 16.3 H Plt Count (130 - 400 /CUMM) 153 MPV (7.4 - 10.4 FL) 9.3 Gran % (42.2 - 75.2 %) 83.3 H Lymphocytes % (20.5 - 51.1 %) 10.9 L Monocytes % (1.7 - 9.3 %) 4.2 Eosinophils % (0 - 5 %) 1.3 Basophils % (0.0 - 2.0 %) 0.3 Absolute Granulocytes (1.4 - 6.5 /CUMM) 11.6 H Absolute Lymphocytes (1.2 - 3.4 /CUMM) 1.5 Absolute Monocytes (0.10 - 0.60 /CUMM) 0.6 Absolute Eosinophils (0.0 - 0.7 /CUMM) 0.2 Absolute Basophils (0.0 - 0.2 /CUMM) 0 PUBS MCHC (33.0 - 37.0 G/DL) 33.5 A/P; 61 y/o F with pmh sig for hypertension, hyperlipidemia, peripheral vascular disease status post right AKA, coronary artery disease status post open heart surgery with stent placement and valve replacement(November 2016) on Plavix, emphysema, hypothyroidism admitted with abd pain. n/v/d, pancolitis likely Infectious. Blood cultures growing alphahemolytic strep likely a contaminant. Stool cultures could not be done secondary to patient not having any bowel movement. Patient remains on Unasyn. Advance diet to solids as patient tolerates. Please resume home medications. If patient continues to improve, will likely switch to oral antibiotics tomorrow and discharge.
[2017-04-20 08:17] LABS: PT 11.3 SEC (9.4-12.5)
[2017-04-20 08:21] LABS: ABSOLUTE BASOPHIL COUNT 0 /CUMM (0.0-0.2); ABSOLUTE EOSINOPHIL COUNT 0.2 /CUMM (0.0-0.7); ABSOLUTE GRANULOCYTE CT 11.6 /CUMM (1.4-6.5); ABSOLUTE LYMPH COUNT 1.5 /CUMM (1.2-3.4); ABSOLUTE MONOCYTE COUNT 0.6 /CUMM (0.10-0.60); BASOPHIL % 0.3 % (0.0-2.0); EOSINOPHIL % 1.3 % (0-5); MEAN CORPUSCULAR HGB 31.2 PG (27.0-31.0); MEAN CORPUSCULAR HGB CONC 33.5 G/DL (33.0-37.0); MEAN CORPUSCULAR VOLUME 93.3 FL (81.0-99.0); MEAN PLATELET VOLUME 9.3 FL (7.4-10.4); RBC DISTRIBUTION WIDTH 16.3 % (11.5-14.5)
[2017-04-20 08:39] LABS: HEMATOCRIT 34.5 % (37-47)
[2017-04-20 09:04] LABS: GRANULOCYTE % 83.3 % (42.2-75.2); PLATELET COUNT 153 /CUMM (130-400)
--- NOTE | 2017-04-20 15:28 | PN- Gastroenterology ---
Assessment/Plan Assessment/Recommendations: 1. Bloody diarrhea, abdominal pain and CT scan suggesting pancolitis. Etiology most likely infectious. Continues to improve, although with persistent leukocytosis. No stool cultures have been sent, because the patient has not had a bowel movement. Of note, the positive blood culture was likely a contaminant. 2. Abnormal liver associated enzymes. Near normalization. 3. Back pain. Recommendations * Advance to low fiber diet * The patient does not need morphine, from a GI standpoint. Anticholinergic therapy should suffice. * Consider further evaluation of back pain, including possible imaging. * Would discontinue antibiotics Subjective Subjective: Minor lower abdominal discomfort, improved. Transient nausea secondary to potassium supplement. No vomiting. No bowel movements, no blood per rectum. Still has lower back pain. Objective Vital Signs and I&Os Vital Signs Date Time Temp Pulse Resp B/P B/P Pulse O2 O2 Flow FiO2 Mean Ox Delivery Rate 04/20 1346 146/98 04/20 0648 97.8 64 18 146/98 91 04/19 2152 98.4 66 14 164/94 93 Room Air Intake & Output 04/20 1600 04/20 0400 04/19 1600 04/19 0400 04/18 1600 04/18 0400 Intake Total 860 1320 2000 Output Total 700 1000 1100 Balance 160 320 900 Intake, IV 511 539 4084 Intake, Oral 360 800 400 Number 0 0 Bowel Movements Output, Urine 700 1000 1100 Patient 99 lb 0.51 oz 89 lb 0.5 oz 98 lb Weight Weight Bed scale Estimated Measurement Method Physical Exam: Sclera anicteric. No adenopathy. Abdomen soft, nondistended, with mild tenderness. Current Medications: Current Medications Sig/Eduardo Start time Last Medication Dose Route Stop Time Status Admin Acetaminophen 650 MG Q6PRN PRN 04/18 0445 AC PO Acetaminophen 1,000 MG Q6P PRN 04/18 0445 AC IV Amlodipine Besylate 10 MG DAILY 04/20 1203 AC 04/20 PO 1346 Ampicillin Sodium/ 3,000 MG Q6 04/19 1200 AC 04/20 Sulbactam Sodium IV 1345 Sodium Chloride 100 ML Aspirin Buffered 81 MG DAILY 04/20 1203 AC 04/20 PO 1346 Atorvastatin Calcium 80 MG Q2D 04/20 1700 AC PO Clopidogrel Bisulfate 75 MG DAILY 04/20 1203 AC 04/20 PO 1346 Dicyclomine HCl 20 MG 4 TIMES/DAY PRN 04/19 0045 AC PO Levothyroxine Sodium 0.112 MG DAILY AC 04/20 1203 AC 04/20 PO 1346 Lisinopril 20 MG DAILY 04/21 1000 AC PO Metoprolol Succinate 50 MG DAILY 04/20 1203 AC 04/20 PO 1346 Morphine Sulfate 1 MG Q4P PRN 04/18 0445 AC 04/20 IV 1513 Patient Medication 1 ED ONE ONE 04/20 1200 DC Teaching ED 04/20 1201 Potassium Chloride 60 MEQ ONCE ONE 04/20 1100 DC 04/20 PO 04/20 1101 1115 Potassium Chloride 20 MEQ Q20H 04/19 1415 AC 04/19 Dextrose/Water 1,000 ML IV 1619 Results Pertinent Lab Results: Laboratory Tests 04/20 04/19 0733 0730 Chemistry Sodium (137 - 145 mmol/L) 143 147 H Potassium (3.5 - 5.1 mmol/L) 3.2 L 3.1 L Chloride (98 - 107 mmol/L) 108 H 115 H Carbon Dioxide (22 - 30 mmol/L) 22 19 L Anion Gap (5 - 16) 13 13 BUN (7 - 17 mg/dL) 9 15 Creatinine (0.5 - 1.0 mg/dL) 0.8 0.9 Estimated GFR (>60 ml/min) > 60 > 60 BUN/Creatinine Ratio (7 - 25 %) 11.3 16.7 Total Bilirubin (0.2 - 1.3 mg/dL) 0.6 Direct Bilirubin (< 0.4 mg/dL) 0.2 AST (14 - 36 U/L) 53 H ALT (9 - 52 U/L) 61 H Alkaline Phosphatase (<127 U/L) 120 Total Protein (6.3 - 8.2 g/dL) 6.1 L Albumin (3.5 - 5.0 g/dL) 3.4 L Coagulation PT (9.4 - 12.5 SEC) 11.3 INR (0.90 - 1.19) 1.08 Hematology CBC w Diff NO MAN DIFF REQ NO MAN DIFF REQ WBC (4.8 - 10.8 /CUMM) 14.0 H 12.7 H RBC (4.20 - 5.40 /CUMM) 3.70 L 3.06 L Hgb (12.0 - 16.0 G/DL) 11.6 L 9.5 L Hct (37 - 47 %) 34.5 L 29.0 L MCV (81.0 - 99.0 FL) 93.3 94.7 MCH (27.0 - 31.0 PG) 31.2 H 31.2 H RDW (11.5 - 14.5 %) 16.3 H 16.5 H Plt Count (130 - 400 /CUMM) 153 130 MPV (7.4 - 10.4 FL) 9.3 9.4 Gran % (42.2 - 75.2 %) 83.3 H 85.8 H Lymphocytes % (20.5 - 51.1 %) 10.9 L 8.6 L Monocytes % (1.7 - 9.3 %) 4.2 4.4 Eosinophils % (0 - 5 %) 1.3 0.6 Basophils % (0.0 - 2.0 %) 0.3 0.6 Absolute Granulocytes (1.4 - 6.5 /CUMM) 11.6 H 10.9 H Absolute Lymphocytes (1.2 - 3.4 /CUMM) 1.5 1.1 L Absolute Monocytes (0.10 - 0.60 /CUMM) 0.6 0.6 Absolute Eosinophils (0.0 - 0.7 /CUMM) 0.2 0.1 Absolute Basophils (0.0 - 0.2 /CUMM) 0 0.1 PUBS MCHC (33.0 - 37.0 G/DL) 33.5 32.9 L Serology Hepatitis A IgM Ab (NONREACTIVE) NONREACTIVE Hep Bs Antigen (NONREACTIVE) NONREACTIVE Hepatitis C Antibody (NONREACTIVE) NONREACTIVE 04/18 04/18 04/18 04/18 1120 0955 0821 0520 Chemistry Lactic Acid (0.7 - 2.1 mmol/L) 2.0 2.3 H 3.4 H Toxicology Urine Opiates Screen (>2000 NG/ML) 1243.00 Methadone Screen (>300 NG/ML) < 40 Barbiturate Screen (>200 NG/ML) < 60 Ur Phencyclidine Scrn (>25 NG/ML) < 6.00 Amphetamines Screen (>1000 NG/ML) < 100 U Benzodiazepines Scrn (>200 NG/ML) < 85 Urine Cocaine Screen (>300 NG/ML) < 50 Urine Cannabis Screen (>50 NG/ML) < 5.00 Urines Urinalysis LIGHT H Urine Color (YEL,AMB,STR) YEL Urine Clarity (CLEAR) CLEAR Urine pH (5.0 - 8.0) 7.0 Ur Specific [place] (1.001 - 1.035) 1.010 Urine Protein (NEG,<30 MG/DL) 100 H Urine Ketones (NEG) NEG Urine Nitrite (NEG) POS H Urine Bilirubin (NEG) NEG Urine Urobilinogen (0.1 - 1.0 EU/dl) 0.2 Ur Leukocyte Esterase (NEG) NEG Ur Microscopic SEDIMENT EXAMINED Urine RBC (0 - 5 /HPF) RARE Urine WBC (0 - 2 /HPF) 3-5 H Ur Epithelial Cells (NONE,FEW) FEW Urine Bacteria (NEG/NONE) MANY H Urine Hemoglobin (NEG) NEG Urine Glucose (N MG/DL) NEG 04/18 04/18 04/17 0520 0123 2320 Chemistry Sodium (137 - 145 mmol/L) 145 Potassium (3.5 - 5.1 mmol/L) 3.9 Chloride (98 - 107 mmol/L) 108 H Carbon Dioxide (22 - 30 mmol/L) 22 Anion Gap (5 - 16) 15 BUN (7 - 17 mg/dL) 18 H Creatinine (0.5 - 1.0 mg/dL) 1.2 H Estimated GFR (>60 ml/min) 46 L BUN/Creatinine Ratio (7 - 25 %) 15.0 Lactic Acid (0.7 - 2.1 mmol/L) 4.7 H 6.5 H Total Bilirubin (0.2 - 1.3 mg/dL) 0.7 Direct Bilirubin (< 0.4 mg/dL) 0.6 H AST (14 - 36 U/L) 99 H ALT (9 - 52 U/L) 102 H Alkaline Phosphatase (<127 U/L) 208 H Total Protein (6.3 - 8.2 g/dL) 6.7 Albumin (3.5 - 5.0 g/dL) 4.0 Hematology CBC w Diff MAN DIFF ORDERED WBC (4.8 - 10.8 /CUMM) 18.7 H RBC (4.20 - 5.40 /CUMM) 4.00 L Hgb (12.0 - 16.0 G/DL) 12.3 Hct (37 - 47 %) 37.8 MCV (81.0 - 99.0 FL) 94.4 MCH (27.0 - 31.0 PG) 30.8 RDW (11.5 - 14.5 %) 15.7 H Plt Count (130 - 400 /CUMM) 156 MPV (7.4 - 10.4 FL) 9.1 Gran % (42.2 - 75.2 %) 92.4 H Lymphocytes % (20.5 - 51.1 %) 2.7 L Monocytes % (1.7 - 9.3 %) 4.8 Eosinophils % (0 - 5 %) 0.1 Basophils % (0.0 - 2.0 %) 0 Absolute Granulocytes (1.4 - 6.5 /CUMM) 17.2 H Segmented Neutrophils (42.2 - 75.2 %) 83 H Band Neutrophils (0.0 - 5.0 %) 7 H Absolute Lymphocytes (1.2 - 3.4 /CUMM) 0.5 L Lymphocytes (20.5 - 51.1 %) 5 L Monocytes (1.7 - 9.3 %) 5 Absolute Monocytes (0.10 - 0.60 /CUMM) 0.9 H Absolute Eosinophils (0.0 - 0.7 /CUMM) 0 Absolute Basophils (0.0 - 0.2 /CUMM) 0 Platelet Estimate (ADEQUATE) ADEQUATE Polychromasia 1+ Hypochromic-Microcytic 1+ Poikilocytosis 1+ Ovalocytes 1+ PUBS MCHC (33.0 - 37.0 G/DL) 32.6 L Other Body Source Fld Total RBCs Counted (%) 100 04/17 2320 Chemistry Sodium (137 - 145 mmol/L) 144 Potassium (3.5 - 5.1 mmol/L) 3.4 L Chloride (98 - 107 mmol/L) 101 Carbon Dioxide (22 - 30 mmol/L) 23 Anion Gap (5 - 16) 21 H BUN (7 - 17 mg/dL) 18 H Creatinine (0.5 - 1.0 mg/dL) 1.2 H Estimated GFR (>60 ml/min) 46 L BUN/Creatinine Ratio (7 - 25 %) 15.0 Glucose (65 - 99 mg/dL) 213 H Calcium (8.4 - 10.2 mg/dL) 9.7 Total Bilirubin (0.2 - 1.3 mg/dL) 1.5 H Direct Bilirubin (< 0.4 mg/dL) 1.3 H AST (14 - 36 U/L) 155 H ALT (9 - 52 U/L) 129 H Alkaline Phosphatase (<127 U/L) 303 H Troponin I (< 0.11 ng/ml) 0.05 Total Protein (6.3 - 8.2 g/dL) 8.3 H Albumin (3.5 - 5.0 g/dL) 5.0 Amylase (30 - 110 U/L) 183 H Lipase (23 - 300 U/L) 93 Coagulation PT (9.4 - 12.5 SEC) 15.9 H INR (0.90 - 1.19) 1.52 H APTT (25 - 37 SEC) 45 H Hematology CBC w Diff NO MAN DIFF REQ WBC (4.8 - 10.8 /CUMM) 15.1 H RBC (4.20 - 5.40 /CUMM) 5.09 Hgb (12.0 - 16.0 G/DL) 15.7 Hct (37 - 47 %) 48.0 H MCV (81.0 - 99.0 FL) 94.4 MCH (27.0 - 31.0 PG) 30.9 RDW (11.5 - 14.5 %) 15.8 H Plt Count (130 - 400 /CUMM) 187 MPV (7.4 - 10.4 FL) 8.6 Gran % (42.2 - 75.2 %) 90.5 H Lymphocytes % (20.5 - 51.1 %) 7.8 L Monocytes % (1.7 - 9.3 %) 0.9 L Eosinophils % (0 - 5 %) 0.2 Basophils % (0.0 - 2.0 %) 0.6 Absolute Granulocytes (1.4 - 6.5 /CUMM) 13.7 H Absolute Lymphocytes (1.2 - 3.4 /CUMM) 1.2 Absolute Monocytes (0.10 - 0.60 /CUMM) 0.1 Absolute Eosinophils (0.0 - 0.7 /CUMM) 0 Absolute Basophils (0.0 - 0.2 /CUMM) 0.1 PUBS MCHC (33.0 - 37.0 G/DL) 32.8 L
[2017-04-20 15:31] VITALS: BP 148/80
[2017-04-20 22:58] VITALS: BP 117/71
[2017-04-21 07:27] VITALS: BP 160/98
--- NOTE | 2017-04-21 07:58 | PN- Housestaff ---
Roz Garces 04/21/17 0758: Subjective Follow-up For: Pancolitis Complaints: diarrhea Subjective: Patient was seen and examined this morning. She was complaining of profuse diarrhea at this morning. She would like to continue her regular diet which is low fiber. She remains afebrile and hemodynamically stable. Review of Systems Constitutional: Reports: weakness. Denies: chills, diaphoresis. Cardiovascular: Denies: chest pain, edema. Respiratory: Denies: cough, short of breath. Gastrointestinal: Reports: diarrhea. Genitourinary: Denies: dysuria, hematuria. Musculoskeletal: Reports: joint pain. Objective Last 24 Hrs of Vital Signs/I&O Vital Signs Date Time Temp Pulse Resp B/P B/P Pulse O2 O2 Flow FiO2 Mean Ox Delivery Rate 04/21 1425 97.7 58 20 140/81 92 Room Air 04/21 0848 66 160/98 04/21 0847 66 160/98 04/21 0847 66 160/98 04/21 0727 98.0 55 20 160/98 93 Room Air 04/20 2258 98.4 88 18 117/71 93 Room Air Intake & Output 04/21 1600 04/21 0800 04/21 0000 Intake Total 800 550 920 Output Total 700 700 300 Balance 100 -150 620 Intake, IV 400 350 420 Intake, Oral 400 200 500 Number 2 2 Bowel Movements Output, Urine 700 700 300 Physical Exam General Appearance: Alert, Oriented X3, Cooperative, No Acute Distress Cardiovascular: Regular Rate, Normal S1, Normal S2, No Murmurs Lungs: Normal Air Movement Abdomen: Soft, slight tenderness Neurological: Normal Gait, Normal Speech Current Medications: Current Medications Sig/Eduardo Start time Last Medication Dose Route Stop Time Status Admin Acetaminophen 650 MG Q6PRN PRN 04/18 0445 AC PO Acetaminophen 1,000 MG Q6P PRN 04/18 0445 AC IV Amlodipine Besylate 10 MG DAILY 04/20 1203 AC 04/21 PO 0848 Aspirin Buffered 81 MG DAILY 04/20 1203 AC 04/21 PO 0848 Atorvastatin Calcium 80 MG Q2D 04/20 1700 AC 04/20 PO 1819 Clopidogrel Bisulfate 75 MG DAILY 04/20 1203 AC 04/21 PO 0847 Dicyclomine HCl 20 MG 4 TIMES/DAY PRN 04/19 0045 AC PO Levothyroxine Sodium 0.112 MG DAILY AC 04/20 1203 04/21 PO 0456 Lisinopril 20 MG DAILY 04/21 1000 AC 04/21 PO 0847 Metoprolol Succinate 50 MG DAILY 04/20 1203 04/21 PO 0847 Morphine Sulfate 1 MG Q4P PRN 04/18 0445 04/21 IV 1322 Potassium Chloride 20 MEQ Q20H 04/19 1415 04/20 Dextrose/Water 1,000 ML IV 1913 Last 24 Hrs of Lab/Imer Results Last 24 Hrs of Labs/Mics: Laboratory Tests 04/21/17 0655: Anion Gap 11, Estimated GFR > 60, BUN/Creatinine Ratio 6.7 L, CBC w Diff NO MAN DIFF REQ, RBC 3.66 L, MCV 94.5, MCH 30.8, RDW 15.4 H, MPV 9.3, Gran % 79.6 H, Lymphocytes % 15.3 L, Monocytes % 3.2, Eosinophils % 1.6, Basophils % 0.3, Absolute Granulocytes 8.6 H, Absolute Lymphocytes 1.6, Absolute Monocytes 0.3, Absolute Eosinophils 0.2, Absolute Basophils 0, PUBS MCHC 32.5 L Microbiology 04/21 1020 STOOL: Clostridium difficile Toxin A & B - COMP 04/20 1734 STOOL: Vibrio Culture - RES 04/20 1734 STOOL: Stool Culture - RES Assessment/Plan Assessment: Patient is a 61-year-old female with a past medical history significant for hypertension and hyperlipidemia, peripheral vascular disease, coronary artery disease who presented to the ED for the evaluation of worsening nausea vomiting diarrhea. CT abdomen and pelvis showed: Pancolitis of uncertain etiology, possibly infectious, inflammatory, or ischemic in nature.Emphysema. Additional chronic changes as above. Problem list/plan #Pancolitis(differentials include infectious, inflammatory, or ischemic) * Patient has been evaluated by surgery, recommended to continue with conservative management for now. * Continue IV hydration and bowel rest; she was symptomatic on advancing diet if her diarrhea doesn't improve and she obtained of worsening abdominal pain we will change diet to full liquid as she is requesting to continue with low fiber diet for now. * Her antibiotics were discontinued yesterday and we will watch her off of antibiotics for now. * In case of worsening symptoms increasing lactate levels/ Increasing WBC count/ increasing bicarbonate, surgical intervention would be done. * Her aspirin and Plavix were held on admission because of possibility of any surgical intervention. At this point patient does not need any surgical intervention we will resume her aspirin, Plavix and also her home dose of antihypertensives. #Hypokalemia, hypernatremia. * Will start on KCl in dextrose water and oral potassium for repletion. * monitor electrolytes and replete accordingly C/w all her home medications DVT prophylaxis with alps Patient is Full code Problem List: 1. Colitis Pain Ratin Pain Location: abdomen Pain Goal: Remain pain free Pain Plan: dylan Tomorrow's Labs & Rationales: cbc and bep Juanis Block MD 04/21/17 1523: Attending MD Review Statement Attending Statement Attending MD Statement: examined this patient, discuss w/resident/PA/CREDIT CARD INTERVIEWER, agreed w/resident/PA/CREDIT CARD INTERVIEWER, reviewed EMR data (avail), discussed with nursing, discussed with case mgmt, reviewed images, amended to note Attending Assessment/Plan: Patient seen and examined, had profuse watery diarrhea this am. Leukocytosis has improved. Stool cultures were sent. C. difficile came out negative but other stool cultures are pending. Initial plan for discharging the patient this this morning was canceled. Will monitor the stool output. One stool output improves and if all the cultures remain negative patient can likely be discharged home tomorrow. Patient has been watched off of antibiotics. Continue the rest of the management.
[2017-04-21 08:14] LABS: ABSOLUTE BASOPHIL COUNT 0 /CUMM (0.0-0.2); ABSOLUTE EOSINOPHIL COUNT 0.2 /CUMM (0.0-0.7); ABSOLUTE GRANULOCYTE CT 8.6 /CUMM (1.4-6.5); ABSOLUTE LYMPH COUNT 1.6 /CUMM (1.2-3.4); ABSOLUTE MONOCYTE COUNT 0.3 /CUMM (0.10-0.60); BASOPHIL % 0.3 % (0.0-2.0); EOSINOPHIL % 1.6 % (0-5); GRANULOCYTE % 79.6 % (42.2-75.2); HEMATOCRIT 34.6 % (37-47); MEAN CORPUSCULAR HGB 30.8 PG (27.0-31.0); MEAN CORPUSCULAR HGB CONC 32.5 G/DL (33.0-37.0); MEAN CORPUSCULAR VOLUME 94.5 FL (81.0-99.0); MEAN PLATELET VOLUME 9.3 FL (7.4-10.4); PLATELET COUNT 137 /CUMM (130-400); RBC DISTRIBUTION WIDTH 15.4 % (11.5-14.5); RED BLOOD CELL CT 3.66 /CUMM (4.20-5.40); WHITE BLOOD CELL COUNT 10.8 /CUMM (4.8-10.8)
[2017-04-21 14:25] VITALS: BP 140/81
[2017-04-21 22:26] VITALS: BP 130/92
[2017-04-22 06:11] VITALS: BP 142/62
--- NOTE | 2017-04-22 07:30 | PN- Housestaff ---
Roz Garces 04/22/17 0730: Subjective Follow-up For: Pancolitis Complaints: diarrhoea Subjective: Patient was seen and examined this morning. She was sitting comfortably but mentioned that she still had few loose bowel movements. She remained hemodynamically stable and able to tolerate food. Her stool culture came back negative so far. Review of Systems Constitutional: Denies: chills, diaphoresis. Cardiovascular: Denies: edema, orthopena. Respiratory: Denies: hemoptysis, orthopnea. Gastrointestinal: Reports: diarrhea. Genitourinary: Denies: dysuria, hematuria. Musculoskeletal: Denies: joint pain, joint swelling. Objective Last 24 Hrs of Vital Signs/I&O Vital Signs Date Time Temp Pulse Resp B/P B/P Pulse O2 O2 Flow FiO2 Mean Ox Delivery Rate 04/22 917 64 170/88 04/22 917 64 170/88 04/22 917 64 170/88 04/22 0611 97.6 61 20 142/62 93 Room Air 04/21 2226 97.2 57 20 130/92 93 Room Air 04/21 1425 97.7 58 20 140/81 92 Room Air Intake & Output 04/22 1600 04/22 0800 04/22 0000 Intake Total 400 150 Output Total 700 700 Balance -300 -550 Intake, IV 400 150 Number 1 Bowel Movements Output, Urine 700 700 Physical Exam General Appearance: Alert, Oriented X3, Cooperative, No Acute Distress Cardiovascular: Regular Rate, Normal S1, Normal S2 Lungs: Normal Air Movement Abdomen: Soft, No Tenderness Neurological: Normal Speech, Normal Tone Extremities: No Clubbing, No Cyanosis, No Edema Current Medications: Current Medications Sig/Eduardo Start time Last Medication Dose Route Stop Time Status Admin Acetaminophen 650 MG Q6PRN PRN 04/18 0445 AC PO Acetaminophen 1,000 MG Q6P PRN 04/18 0445 AC IV Amlodipine Besylate 10 MG DAILY 04/20 1203 AC 04/22 PO 0918 Aspirin Buffered 81 MG DAILY 04/20 1203 AC 04/22 PO 09 Atorvastatin Calcium 80 MG Q2D 04/20 1700 AC 04/20 PO 1819 Clopidogrel Bisulfate 75 MG DAILY 04/20 1203 AC 04/22 PO 0918 Dicyclomine HCl 20 MG 4 TIMES/DAY PRN 04/19 0045 AC 04/22 PO 09 Levothyroxine Sodium 0.112 MG DAILY AC 04/20 1203 04/22 PO 0635 Lisinopril 20 MG DAILY 04/21 1000 04/22 PO 0918 Metoprolol Succinate 50 MG DAILY 04/20 1203 04/22 PO 0918 Morphine Sulfate 1 MG Q4P PRN 04/18 0445 04/22 IV 1038 Potassium Chloride 20 MEQ Q20H 04/19 1415 04/21 Dextrose/Water 1,000 ML IV 1729 Last 24 Hrs of Lab/Imer Results Last 24 Hrs of Labs/Mics: Laboratory Tests 04/22/17 0655: Anion Gap 12, Estimated GFR > 60, BUN/Creatinine Ratio 7.1, CBC w Diff NO MAN DIFF REQ, RBC 3.68 L, MCV 93.8, MCH 31.1 H, RDW 16.1 H, MPV 9.6, Gran % 66.5, Lymphocytes % 25.1, Monocytes % 6.1, Eosinophils % 1.7, Basophils % 0.6, Absolute Granulocytes 5.3, Absolute Lymphocytes 2.0, Absolute Monocytes 0.5, Absolute Eosinophils 0.1, Absolute Basophils 0, PUBS MCHC 33.2 Assessment/Plan Assessment: Patient is a 61-year-old female with a past medical history significant for hypertension and hyperlipidemia, peripheral vascular disease, coronary artery disease who presented to the ED for the evaluation of worsening nausea vomiting diarrhea. CT abdomen and pelvis showed: Pancolitis of uncertain etiology, possibly infectious, inflammatory, or ischemic in nature.Emphysema. Additional chronic changes as above. Problem list/plan #Pancolitis(differentials include infectious, inflammatory, or ischemic) * Patient has been evaluated by surgery, recommended to continue with conservative management for now. * Patient is tolerating oral food well. She still complaining of few loose bowel movements but her stool culture came back negative. She does not have C. difficile as well. She remained stable.Her antibiotics were discontinued.we will send her home today on symptomatic treatment and would instruct her to follow-up with gastroenterology as outpatient #Hypokalemia, hypernatremia. * Resolved and repleted C/w all her home medications DVT prophylaxis with alps Patient is Full code Problem List: 1. Colitis Pain Ratin Pain Location: abdomen Pain Goal: Remain pain free Pain Plan: dylan Tomorrow's Labs & Rationales: none Umair MONTIELJuanis 04/22/17 1050: Attending MD Review Statement Attending Statement Attending MD Statement: examined this patient, discuss w/resident/PA/FRUIT ROOM HAND, agreed w/resident/PA/FRUIT ROOM HAND, reviewed EMR data (avail), discussed with nursing, discussed with case mgmt, reviewed images, amended to note Attending Assessment/Plan: Patient seen and examined, overall doing okay but still had some diarrhea. All stool cultures including C. difficile remains negative. Patient remains afebrile and white blood cell count improving. Abdominal exam is benign. A/P; 61 y/o F with pmh sig for hypertension, hyperlipidemia, peripheral vascular disease status post right AKA, coronary artery disease status post open heart surgery with stent placement and valve replacement(November 2016) on Plavix, emphysema, hypothyroidism admitted with abd pain. n/v/d, pancolitis. Patient is overall improving although still having some diarrhea. C. difficile was negative and other stool cultures were also negative. Patient will be given some Imodium to help diarrhea. Otherwise leukocytosis improved. Abdominal exam is benign. Patient is able to tolerate solid food. Medically stable for discharge home today. Patient will follow-up with primary care doctor as well as GI as an outpatient.
[2017-04-22 08:11] LABS: ABSOLUTE BASOPHIL COUNT 0 /CUMM (0.0-0.2); ABSOLUTE EOSINOPHIL COUNT 0.1 /CUMM (0.0-0.7); ABSOLUTE GRANULOCYTE CT 5.3 /CUMM (1.4-6.5); ABSOLUTE MONOCYTE COUNT 0.5 /CUMM (0.10-0.60); BASOPHIL % 0.6 % (0.0-2.0); EOSINOPHIL % 1.7 % (0-5); GRANULOCYTE % 66.5 % (42.2-75.2); HEMATOCRIT 34.6 % (37-47); MEAN CORPUSCULAR HGB 31.1 PG (27.0-31.0); MEAN CORPUSCULAR HGB CONC 33.2 G/DL (33.0-37.0); MEAN CORPUSCULAR VOLUME 93.8 FL (81.0-99.0); MEAN PLATELET VOLUME 9.6 FL (7.4-10.4); PLATELET COUNT 145 /CUMM (130-400); RBC DISTRIBUTION WIDTH 16.1 % (11.5-14.5); RED BLOOD CELL CT 3.68 /CUMM (4.20-5.40)
[2017-04-22 09:18] VITALS: BP 170/88
[2017-04-22] MEDS ORDERED: LOPERAMIDE2 M1 PO (10:16)
[2017-04-22] MEDS ORDERED: BENTYL10 M1 PO (10:16)
[2017-04-22] MEDS ORDERED: TRAMADOL HCL50 M1 PO (10:16)
--- NOTE | 2017-04-22 10:20 | Patient Discharge Instructions ---
Discharge Instructions General Discharge Information You were seen/treated for: COLLITIS Special Instructions: Please follow up with your PCP in a week Please take mediactions as prescribed Please follow up with gastroentrologist in 1-2 weeks of discharge Diet Recommended Diet: Low Residue Activity Additional ACTIVITY Info: as tolerated Acute Coronary Syndrome Inclusion Criteria At DC or during hospital stay patient has or had the following: ACS DIAGNOSIS No Discharge Core Measures Meds if any: Prescribed or Continued at Discharge Meds if any: NOT Prescribed or Continued at Discharge Congestive Heart Failure Inclusion Criteria At DC or during hospital stay patient has or had the following: CHF DIAGNOSIS No Discharge Core Measures Meds if any: Prescribed or Continued at Discharge Meds if any: NOT Prescribed or Continued at Discharge Cerebrovascular accident Inclusion Criteria At DC or during hospital stay patient has or had the following: CVA/TIA Diagnosis No Discharge Core Measures Meds if any: Prescribed or Continued at Discharge Meds if any: NOT Prescribed or Continued at Discharge Venous thromboembolism Inclusion Criteria VTE Diagnosis No VTE Type NONE VTE Confirmed by (Test) NONE Discharge Core Measures - Per Current guidelines, there needs to be overlap - treatment for the first 5 days of Warfarin therapy. - If discharged on Warfarin prior to 5 days of - overlap therapy, the patient will need to be - assessed for post discharge needs including - *Post discharge parental anticoagulation - *Warfarin and/or parental anticoagulation education - *Follow up date to check INR post discharge At least 5 days overlap therapy as Inpatient No Meds if any: Prescribed or Continued at Discharge Note: Overlap Therapy is Warfarin and Anticoagulant Meds if any: NOT Prescribed or Continued at Discharge
--- NOTE | 2017-04-22 15:37 | Discharge Summary ---
Visit Information Visit Dates Admission Date: 04/18/17 Discharge Date: 04/22/17 Hospital Course Course Attending Physician: Juanis Block MD Primary Care Physician: Patient Has No Primary Care Dr Consulting Request: Consulting Specialty: Gastroenterology Hospital Course: Mrs. Harrison is a 61-year-old lady with past medical history significant for hypertension, hyperlipidemia, peripheral vascular disease status post right AKA, coronary artery disease status post open heart surgery with stent placement and valve replacement(November 2016) on Plavix, emphysema, hypothyroidism and pneumonia presents to the ER with abdominal pain, vomiting and diarrhea for 2 days. In the ER patient was having 10 on 10 severe abdominal pain, while she was being moved for the CAT scan she had a large bloody bowel movement. CT abdomen and pelvis revealed pancolitis with the labs evident for lactic acidosis suggestive of possible ischemic colitis. Vitals stable. Dry mucous membranes, Abd guarded, mildly distended, diffusely tender, BS+. Labs: WBC 15.1, H/H 15.7/48, Plt 187, INR 1.52, K 3.4, AG 21, BUN 18, creat 1.2 (0.5-0.8), glucose 213, lactic acid 6.5, T. Bili 1.5, D. Bili 1.3, AST 155, ALT 129, alk phos 303, trop neg. Patient was admitted on general medical floor and following issues were addressed 1. Pancolitis, concerning for ischemic colitis given vasculopath and elevated lactic acid Initially surgical consultation was placed, patient was advised to stay nothing by mouth for bowel rest, started her on ceftriaxone and Flagyl. Consider if management was planned. GI consultation was also placed, stool culture for vibrio, C. difficile, hepatitis panel and symptomatic treatment with was continued. Progressively her diet was advanced and patient started tolerating clear liquids to full liquids and regular diet. Stool culture came back negative for any infectious pathology. Her antibiotics were discontinued. C. difficile was ruled out. Patient improved symptomatically and was sent home on symptomatic treatment with instruction to follow up with [facility] as outpatient Problem #2 electrolyte imbalance Her labs were checked daily and her potassium was repleted accordingly Problem #3 history of hypertension, dyslipidemia Initially her home medication for hypertension were held but but were restarted and will be discharged home on same meds. Complications: none Allergies: Coded Allergies: erythromycin base (UNKNOWN PT DOESNT REMEMBER 08/22/16) Significant Procedures: SERVICE DATE: 04/17/17 EXAM TYPE: CAT - CT ABD & PELVIS W/O IV CONTRAS EXAMINATION: CT ABDOMEN AND PELVIS WITHOUT CONTRAST CLINICAL INFORMATION: Abdominal pain and diarrhea COMPARISON: 08/22/2016 TECHNIQUE: Multidetector volumetric imaging was performed from the superior aspect of the liver through the pubic symphysis. Sagittal and coronal reformatted images were obtained on the technologist's workstation. DLP: 243 mGy-cm FINDINGS: LUNG BASES: Emphysema noted. Coronary artery calcifications. LIVER, GALLBLADDER, AND BILIARY TREE: The liver is normal in size, shape, and attenuation. No focal hepatic lesion or biliary ductal dilatation is present. The gallbladder is not seen, likely absent. PANCREAS: Unremarkable. SPLEEN: Unremarkable. ADRENAL GLANDS: Left adrenal gland is unremarkable. Likely right adrenal adenoma. The appearance is unchanged. KIDNEYS AND URETERS: The kidneys are normal in size, shape, and attenuation. No hydronephrosis, hydroureter, or calculi seen. No perinephric stranding. BLADDER: Decompressed with no gross abnormality. GASTROINTESTINAL TRACT: Lack of IV contrast and intra-abdominal fat limits the evaluation. The stomach appears unremarkable. The small bowel is nonobstructed. There is pancolonic wall thickening with adjacent inflammation noted. There is a normal appendix. No free air. No significant free fluid. ABDOMINAL WALL: No significant hernia is appreciated. LYMPH NODES: Normal. VASCULAR: Postsurgical changes with aortobiiliac bypass. Vascular stents also noted. PELVIC VISCERA: Unremarkable. OSSEOUS STRUCTURES: No acute or suspicious osseous abnormality. Degenerative changes of the spine and hips. IMPRESSION: Pancolitis of uncertain etiology, possibly infectious, inflammatory, or ischemic in nature. Emphysema. Additional chronic changes as above. Disposition Summary Disposition Principal Diagnosis: colitis Additional Diagnosis: Hypertension Discharge Disposition: home or self care Discharge Instructions General Discharge Information Code Status: Full Code Patient's Diet: Low fiber diet Patient's Activity: As tolerated Follow-Up Instructions/Appts: Please follow up with your PCP in a week Please take mediactions as prescribed Please follow up with gastroentrologist in 1-2 weeks of discharge Medications at Discharge Discharge Medications: Continue taking these medications: Lisinopril (Lisinopril) 20 MG TABLET 1 Tablet ORAL DAILY Qty = 30 Comments: Last Taken: 04/22/17 Time: 0915AM Levothyroxine Sodium (Levothyroxine Sodium) 112 MCG TABLET 1 Tablet ORAL DAILY BEFORE BREAKFAST Qty = 30 Comments: Last Taken:04/22/17 Time: 0600AM Amlodipine Besylate (Amlodipine Besylate) 10 MG TABLET 1 Tablet ORAL DAILY Qty = 30 Comments: Last Taken: 04/22/17 Time: 0915AM Clopidogrel Bisulfate (Clopidogrel) 75 MG TABLET 1 Tablet ORAL DAILY Qty = 90 Comments: Last Taken: 04/22/17 Time: 0915AM Atorvastatin Calcium (Atorvastatin Calcium) 80 MG TABLET 1 Tablet ORAL Q2D Qty = 30 Comments: NOT GIVEN IN HOSPITAL Metoprolol Succinate (Metoprolol Succinate) 50 MG TAB.ER.24H 1 Tablet ORAL DAILY Comments: Last Taken: 04/22/17 Time: 0915AM Aspirin (Ecotrin*) 81 MG TABLET.DR 1 Tablet ORAL DAILY Comments: Last Taken: 04/22/17 Time: 0915AM Start taking the following new medications: Dicyclomine Hydrochloride (Bentyl) 10 MG CAPSULE 20 Milligram ORAL 4 TIMES A DAY as needed for DIARRHEA Qty = 30 No Refills Comments: Last Taken: 04/22/17 Time: 0915AM Tramadol HCl (Tramadol HCl) 50 MG TABLET 1 Tablet ORAL EVERY 8 HOURS NEEDED as needed for CHRONIC PAIN Qty = 14 No Refills Comments: NOT GIVEN IN HOSPITAL Loperamide HCl (Loperamide) 2 MG TABLET 1 Tablet ORAL DAILY NEEDED Qty = 30 No Refills Comments: NOT GIVEN IN HOSPITAL Copies To: Umair MONTIEL,Juanis
== END 2017-04-22 14:25 | DRG 386 ==
LOC: ERH 22:19 → ERHI 04-18 02:50 → 2NB 04-18 02:50 → ENRESERV 04-18 21:39 → ENTRNSPT 04-18 22:30 → EDTRNSPTSTS 04-18 22:32 → 2NB 04-18 22:42 → CMPTRNSPT 04-18 22:50 → 2NB 04-20 08:01 → ENPENDDIS 04-22 13:06 → 2NB 04-22 14:25
PROVIDERS: Internal Medicine; Pediatrics; Student in an Organized Health Care Education/Training Program
DX: K51.00 Ulcerative (chronic) pancolitis without complications (principal); N17.9 Acute kidney failure, unspecified; E87.2 Acidosis; K92.2 Gastrointestinal hemorrhage, unspecified; J43.9 Emphysema, unspecified; A09 Infectious gastroenteritis and colitis, unspecified; Z89.611 Acquired absence of right leg above knee; F17.200 Nicotine dependence, unspecified, uncomplicated; E87.6 Hypokalemia; I73.9 Peripheral vascular disease, unspecified; R74.0 Nonspecific elevation of levels of transaminase and lactic acid dehydrogenase [LDH]; R79.1 Abnormal coagulation profile; I10 Essential (primary) hypertension; E78.5 Hyperlipidemia, unspecified; Z79.02 Long term (current) use of antithrombotics/antiplatelets; I25.10 Atherosclerotic heart disease of native coronary artery without angina pectoris; Z95.2 Presence of prosthetic heart valve; E03.9 Hypothyroidism, unspecified
CPT/HCPCS: 2NBSP; 36415; 71045; 74176; 80307; 81001; 82436; 86803; 87040; 87045; 87071; 87147; 87804; 87804-59; 93005; 93010; 96361; 96374; 96375; 99291; J0131; J0696; J7060

== ENCOUNTER 2017-08-01 16:34 | Inpatient (IN) | payer OTHER, MEDICARE ==
[~2017-08-01] VITALS: Ht 162.6 cm; Wt 44.0 kg
[~2017-08-01 16:34] MED LIST changes: +BENTYL10 M1 PO; +LOPERAMIDE2 M1 PO; +TRAMADOL HCL50 M1 PO
[2017-08-01 17:40] LABS: ABSOLUTE BASOPHIL COUNT 0 /CUMM (0.0-0.2); ABSOLUTE EOSINOPHIL COUNT 0.1 /CUMM (0.0-0.7); ABSOLUTE GRANULOCYTE CT 15.2 /CUMM (1.4-6.5); ABSOLUTE LYMPH COUNT 1.4 /CUMM (1.2-3.4); ABSOLUTE MONOCYTE COUNT 0.1 /CUMM (0.10-0.60); BASOPHIL % 0.1 % (0.0-2.0); EOSINOPHIL % 0.4 % (0-5); GRANULOCYTE % 90.3 % (42.2-75.2); HEMATOCRIT 51.5 % (37-47); MEAN CORPUSCULAR HGB 30.2 PG (27.0-31.0); MEAN CORPUSCULAR HGB CONC 32.4 G/DL (33.0-37.0); MEAN CORPUSCULAR VOLUME 93.2 FL (81.0-99.0); MEAN PLATELET VOLUME 9.9 FL (7.4-10.4); PLATELET COUNT 172 /CUMM (130-400); RBC DISTRIBUTION WIDTH 16.4 % (11.5-14.5); RED BLOOD CELL CT 5.52 /CUMM (4.20-5.40); WHITE BLOOD CELL COUNT 16.8 /CUMM (4.8-10.8)
--- NOTE | 2017-08-01 17:53 | ED GI/GU/ABDOMINAL COMPLAINT ---
History of Present Illness General Chief Complaint: General Adult Stated Complaint: BIBA FOR GI BLEED Source: patient, old records Exam Limitations: no limitations Vital Signs & Intake/Output Vital Signs & Intake/Output Vital Signs Date Time Temp Pulse Resp B/P B/P Pulse O2 O2 Flow FiO2 Mean Ox Delivery Rate 08/01 2018 95.5 08/01 1947 60 119/74 08/01 1748 94.9 58 18 109/59 99 Room Air Allergies Coded Allergies: erythromycin base (UNKNOWN PT DOESNT REMEMBER 08/22/16) Reconcile Medications Amlodipine Besylate 10 MG TABLET 1 TAB PO DAILY BP (Reported) Aspirin (Ecotrin*) 81 MG TABLET.DR 1 TAB PO DAILY HEART/BLOOD (Reported) Atorvastatin Calcium 80 MG TABLET 1 TAB PO Q2D CHOLESTEROL (Reported) Clopidogrel Bisulfate (Clopidogrel) 75 MG TABLET 1 TAB PO DAILY BLOOD THINNER (Reported) Dicyclomine Hydrochloride (Bentyl) 10 MG CAPSULE 20 MG PO 4 TIMES/DAY PRN DIARRHEA Levothyroxine Sodium 112 MCG TABLET 1 TAB PO DAILY AC THYROID (Reported) Lisinopril 20 MG TABLET 1 TAB PO DAILY BP (Reported) Loperamide HCl (Loperamide) 2 MG TABLET 1 TAB PO DAILY NEEDED DIARRHEA Metoprolol Succinate 50 MG TAB.ER.24H 1 TAB PO DAILY HEART (Reported) Tramadol HCl 50 MG TABLET 1 TAB PO Q8P PRN CHRONIC PAIN Triage Note: PT BIBA FROM HOME S/P RECTAL BLEEDING THAT STARTED ABOUT 2HOURS MANAGER KNOWLEDGE. PT HAS BEEN VOMITING SINCE THIS MORNING. NO BLOOD IN EMESIS. LOWER ABDOMINAL PAIN 11/11. ADMITED FOR SAME 2 MONTHS AGO. Triage Nurses Notes Reviewed? yes LMP (ages 10-50): post menopausal, unknown ? n Is pt currently ? No Onset: Abrupt Duration: day(s): (2-3), constant, continues in ED Timing: single episode today Quality/Severity: cramping, fullness Severity Numbers: 7 Location: generalized abdomen Radiation: no radiation Activities at Onset: eating Prior Abdominal Problems: similar symptoms (pancolitis ) Past Sexual History: Unobtainable at this time No Modifying Factors: none Modifying Factors: Worsens With: eating, movement, palpation. Associated Symptoms: abdominal pain, nausea/vomiting HPI: 62-year-old female past medical history of coronary artery disease, hypertension , hypothyroidism, COPD, chronic back pain. Presents Evaluation of nausea vomiting diarrhea and abdominal pain. Patient states that this started 3 or 2 days ago and have been persistent. She reports multiple symptoms of vomiting. She states she's also had multiple episodes of diarrhea. She states that the diarrhea has been a black color. No bright red blood per rectum. She denies chest pain shortness of breath or fever. She was seen here back in April with similar symptoms diagnosed with pancolitis. She never followed up. No recent travel or recent antibiotics or sick contacts. She has not eaten Mathew lettuce. No chest pain shortness of breath. She does report feeling very weak and dizzy. She lives at home by herself. (Ac Stuart) Past History Travel History Traveled to [place] past 21 day No Medical History Any Pertinent Medical History? see below for history Neurological: CHRONIC NUMBNESS BOTH HANDS. EENT: NONE Cardiovascular: CAD, hypertension, myocardial infarction, PVD Respiratory: bronchitis, emphysema, pneumonia Gastrointestinal: ASCITES Hepatic: NONE Renal: NONE Musculoskeletal: chronic back pain, R ABOVE KNEE AMPUTATION SCOLIOSIS ARTHRITIS Psychiatric: DRUG ABUSE IN PAST. Endocrine: hypothyroidism (noncompliance with medication) Blood Disorders: NONE Cancer(s): NONE DIRECTOR METABOLISM/Reproductive: NONE History of MRSA: Yes History of VRE: No History of CDIFF: No Surgical History Surgical History: Courtney LOPEZ(2016). BO. UPPER EXTREMITY ARTERIAL STENT. L ARTERIAL BYPASS. CABG. Psychosocial History Who do you live with Family Services at Home None What is your primary language Libyan Tobacco Use: Current Daily Use Daily Tobacco Use Amount/Type: => 5 Cigarettes daily ETOH Use: denies use Family History Family History, If Any: MOTHER FH: heart attack, Onset: 40-50. FATHER FH: emphysema Hx Contributory? No (Ac Stuart) Review of Systems Review of Systems Constitutional: Reports: malaise, weakness. EENTM: Reports: no symptoms. Respiratory: Reports: no symptoms. Cardiovascular: Reports: no symptoms. GI: Reports: see HPI, abdominal pain, diarrhea, nausea, vomiting. Genitourinary: Reports: no symptoms. Musculoskeletal: Reports: no symptoms. Skin: Reports: no symptoms. Neurological/Psychological: Reports: no symptoms. Hematologic/Endocrine: Reports: no symptoms. Immunologic/Allergic: Reports: no symptoms. All Other Systems: Reviewed and Negative (Ac Stuart) Physical Exam Physical Exam General Appearance: well developed/nourished, no apparent distress, alert, awake Head: atraumatic, normal appearance Eyes: Bilateral: normal appearance, PERRL, EOMI, normal inspection. Ears, Nose, Throat, Mouth: hearing grossly normal, moist mucous membrane Neck: normal inspection, supple, full range of motion Respiratory: normal breath sounds, chest non-tender, no respiratory distress, lungs clear Cardiovascular: regular rate/rhythm, normal peripheral pulses Peripheral Pulses: 2+ radial (R), 2+ radial (L) Gastrointestinal: normal bowel sounds, soft, no organomegaly, tenderness ( diffuse ) Rectal: normal inspection, normal rectal tone, heme negative stool, dark brown stool, heme neg Back: normal inspection, normal range of motion, no vertebral tenderness Extremities: normal range of motion Neurologic/Psych: no motor/sensory deficits, awake, alert, oriented x 3, normal gait Skin: intact, normal color, warm/dry Core Measures ACS in differential dx? No Sepsis Present: No Sepsis Focused Exam Completed? No (Ac Stuart) ED Sepsis Exam Date of Focused Sepsis Exam: 08/01/17 Time of Focused Sepsis Exam: 2318 Sepsis Cardiac Exam: Regular Rate/Rhythm Sepsis Resp Exam: CTA Sepsis Cap Refill Exam: <2 Sec Sepsis Peripheral Pulse Exam: Normal Sepsis Peripheral Pulse Location: Radial Sepsis Skin Color Exam: Pale Skin Temp/Moisture Exam: Warm/Dry (Ac Stuart) Progress Differential Diagnosis: appendicitis, biliary colic, bowel obstruction, colon cancer, diverticulitis, ischemic bowel, inflamm bowel dis, kidney stone, pancreatitis, PID/cervicitis, peptic ulcer, PUD/GERD, SBO, UTI/pyelo Plan of Care: Orders Procedure Date/time Status Clear Liquid Diet 08/02 B Active LACTIC ACID 08/02 0116 Active Patient Data 08/01 2311 Active ED Holding Orders 08/01 2308 Active Admit to inpatient 08/01 2308 Active Vital Signs 08/01 2308 Active Code Status 08/01 2308 Active CULTURE,STOOL 08/01 230 Active OVA AND PARASITE ANTIGENS 08/01 230 Active C.DIFFICILE 08/01 230 Active BLOOD CULTURE 08/01 230 Active LACTIC ACID 08/01 2216 Complete Add-on Test (ER Only) 08/01 1955 Active Add-on Test (ER Only) 08/01 1721 Active LIPASE 08/01 1710 Complete LACTIC ACID 08/01 1710 Complete Intake & Output 08/01 170 Active MISTAKE 08/01 164 Active URINALYSIS 08/01 164 Active TROPONIN LEVEL 08/01 164 Complete PARTIAL THROMBOPLASTIN TIME 08/01 164 Complete PROTHROMBIN TIME 08/01 164 Complete COMPREHENSIVE METABOLIC PANEL 08/01 1645 Complete CBC WITHOUT DIFFERENTIAL 08/01 1645 Complete EKG 08/01 1645 Active TYPE & SCREEN (NOT X-MATCH) 08/01 164 Active Laboratory Tests 08/01/17 2255: Lactic Acid 1.3 08/01/17 1848: PT 14.4 H, INR 1.32 H, APTT 39 H 08/01/17 171: Anion Gap 12, Estimated GFR 46 L, BUN/Creatinine Ratio 15.8, Glucose 103 H, Lactic Acid 3.0 H, Calcium 9.0, Total Bilirubin 1.2, AST 48 H, ALT 47, Alkaline Phosphatase 257 H, Troponin I < 0.01, Total Protein 7.2, Albumin 4.3, Globulin 2.9, Albumin/Globulin Ratio 1.5, Lipase 49, CBC w Diff MAN DIFF ORDERED , RBC 5.52 H, MCV 93.2, MCH 30.2, MCHC 32.4 L, RDW 16.4 H, MPV 9.9, Gran % 90.3 H, Lymphocytes % 8.5 L, Monocytes % 0.7 L, Eosinophils % 0.4, Basophils % 0.1, Absolute Granulocytes 15.2 H, Segmented Neutrophils 72, Band Neutrophils 11 H, Absolute Lymphocytes 1.4, Lymphocytes 12 L, Monocytes 3, Absolute Monocytes 0.1, Eosinophils 1, Absolute Eosinophils 0.1, Basophils 1, Absolute Basophils 0, Platelet Estimate ADEQUATE, Poikilocytosis 1+, Anisocytosis 1+, Macrocytic Cells 1+ Microbiology 08/01 2325 BLOOD: Blood Culture - RECD 08/01 2301 STOOL: Cryptosporidium Antigen - ORD 08/01 2301 STOOL: Giardia Antigen (CHERELLE) - ORD 08/01 2301 STOOL: Clostridium difficile Toxin A & B - ORD 08/01 2301 STOOL: Stool Culture - ORD 08/01 2301 BLOOD: Blood Culture - ORD Patient seen and evaluated. She has a history of pancolitis in April that presented similarly. She never followed up. No recent surgery recent antibiotics recent travel or sick contacts. No fevers. She's been having multiple episodes of nausea vomiting diarrhea. He is not tolerating fluids. We 'll check basic labs. Patient medicated with IV fluids Zofran and morphine. Blood work shows elevated BUN/creatinine elevated hemoglobin. Additional fluids ordered. She has an elevated white count of 16,000 with left shift. Lactic acid is 3. CT scan shows evidence of pancolitis. Spoke with Dr. Walls. He recommends holding on antibiotics until stool cultures. Patient lives at home by herself. She has multiple medical comorbidities. She shows evidence of significant dehydration. She'll require admission for IV antibiotics, follow-up cultures, serial labs, GI consult, colonoscopy, IV fluids, IV pain meds, IV antiemetics, case management physical therapy. Case discussed with Dr. Neal he agrees. Diagnostic Imaging: Viewed by Me: Radiology Read. Discussed w/RAD: Radiology Read. Radiology Impression: PATIENT: AALIYAH MACIEL PRESENT AGE: 62 PATIENT ACCOUNT NO: [id number] : 55 LOCATION: [facility] ORDERING PHYSICIAN: Ac GARNER SERVICE DATE: 08/01/17 EXAM TYPE: CAT - CT ABD & PELVIS ANGIOGRAM EXAMINATION: CT ANGIOGRAM ABDOMEN AND PELVIS CLINICAL INFORMATION: Diffuse lower abdominal pain. Diarrhea. Rectal bleeding. COMPARISON : CT abdomen pelvis 04/18/2017 TECHNIQUE: Multiple axial images were obtained through the abdomen and pelvis following the administration of 95 mL of Optiray 320 intravenous contrast. Coronal and sagittal reformatted images are performed at CT scanner. No 3-D images performed. DLP: 246.21 mGy-cm FINDINGS: VASCULAR: There is atherosclerotic vascular irregularity of the aorta without aneurysm or dissection. There is vascular flow in the celiac axis, SMA and renal arteries. There is atherosclerotic vascular wall calcification of these vessels. Patient has had a prior aortobifem bypass. There is partial opacification of the [place] aorta distal to the graft with runoff into the left internal iliac artery. There is faint flow seen in the left aortoiliac graft with some runoff faintly seen into the left femoral artery. The stent in the right common iliac artery and external iliac artery is entirely occluded. There is no enhancement in the partially visualized right femoral arteries. Vascular opacification is seen of the mesenteric vessels. There is no opacification of the venous structures for this exam due to the timing parameters the study. LUNG BASES: Lung bases are clear. No pleural effusion. LIVER, GALLBLADDER, AND BILIARY TREE: The gallbladder is absent. There is mild intrahepatic and extrahepatic bile duct dilatation. The CBD at the elroy hepatis measures 0.9 cm but tapers to the ampulla with no calcified stones seen in the duct. No focal liver lesion. PANCREAS: Unremarkable. SPLEEN: Spleen normal in size and contour. No focal lesion. ADRENAL GLANDS: Adrenal glands are normal in size. No focal mass. KIDNEYS AND URETERS: The kidneys are normal in size, shape, and attenuation. No hydronephrosis, hydroureter, or calculi seen. No perinephric stranding. BLADDER: Unremarkable. GASTROINTESTINAL TRACT: The stomach is unremarkable. This mild prominence of some small bowel loops but without bowel dilatation or obstruction. There is submucosal edema involving the cecum through the sigmoid colon. This is similar to the CAT scan of 04/18/2017. This is consistent with a pancolitis. There is enhancement of this submucosal throughout the colon. There is no evidence of extravasation of contrast or pooling of contrast in the lumen of the bowel. The appendix is normal. MESENTERY: No focal inflammation. No free fluid. No free air. ABDOMINAL WALL: Small ventral wall hernia at the midline at the upper abdomen containing fat and a portion of the stomach bowel wall. LYMPH NODES: Normal. PELVIC VISCERA: Unremarkable. OSSEOUS STRUCTURES: Degenerative spondylosis of the spine. There is slight anterior wedge compression deformity of the T11 vertebrae this is new since CAT scan of 07/02/2014. This is unchanged since the CAT scan of 08/22/2016. IMPRESSION: 1. Persistent changes of a pancolitis. Though there is enhancement of the mucosa of the colon, there is no extravasation of contrast or evidence of pooling of the contrast to indicate a site of active GI bleed. 2. Chronic vascular changes of aorta. Stable aneurysm of the aorta. Stable aortic bifemoral bypass graft. No enhancement of a right iliac artery graft similar to prior study. No vascular flow seen in the right femoral artery. Limited opacification of the left external iliac artery and left femoral artery. DICTATED BY: Primo Montgomery MD DATE/TIME DICTATED:08/01/172127 [employer]:PRINCESS DATE/TIME TRANSCRIBED:08/01/172127 CONFIDENTIAL, DO NOT COPY WITHOUT APPROPRIATE AUTHORIZATION. <Electronically signed in Other Vendor System> SIGNED BY: Primo Montgomery MD 08/01/172199 CXR Impression: PATIENT: AALIYAH MACIEL PRESENT AGE: 62 PATIENT ACCOUNT NO: [id number] : 55 LOCATION: [facility] ORDERING PHYSICIAN: Ac GARNER SERVICE DATE: 08/01/17 EXAM TYPE: RAD - XRY-PORTABLE CHEST XRAY EXAMINATION: XR PORTABLE CHEST CLINICAL INFORMATION: Cough. Shortness of breath. COMPARISON: CT angiogram of the chest 11/21/2015. TECHNIQUE: Portable frontal view of the chest was obtained. FINDINGS: There is minimal scarring and/ or subsegmental atelectasis within the left lateral costophrenic recess that appears grossly unchanged when compared to the CT scan of the chest from 2015. No overt consolidative disease. No pleural effusion or pneumothorax. The cardiac silhouette and upper mediastinal contours are normal. Changes of a median sternotomy are noted. No acute osseous finding. IMPRESSION: Minimal scarring and/or subsegmental atelectasis within the left lung base. Otherwise unremarkable examination. No overt consolidative disease or effusion. DICTATED BY: Sheryl MONTIEL,Beto Still DATE/TIME DICTATED:08/01/171829 [employer]: PRINCESS DATE/TIME TRANSCRIBED:08/01/171829 CONFIDENTIAL, DO NOT COPY WITHOUT APPROPRIATE AUTHORIZATION. Initial ED EKG: normal sinus rhythm, LEFT VENTRICULAR HYPERTROPHY, ANTERIOR q WAVES, NONSPECIFIC t-WAVE ABNORMALITIES INFERIORLY LEADS (Ac Stuart) Departure Departure Disposition: STILL A PATIENT Condition: Stable Clinical Impression Primary Impression: Pancolitis Referrals: Patient Has No Primary Care Dr (PCP/Family) Departure Forms: Customer Survey General Discharge Information Admission Note Spoke With: Khushi Jennings MD Documentation of Exam: Documentation of any treatments & extenuating circumstances including Concerns Regarding Discharge (functional status, medication knowledge or non-compliance, living conditions, etc.) that warrant an admission rather than observation: [IV fluids, serial labs, follow up cultures, IV antibiotics, GI consult, colonoscopy IV pain control, case management, physical therapy] (Ac Stuart) PA/SEED CLEANING MANAGER Co-Sign Statement Statement: ED Attending supervision documentation- [X] I saw and evaluated the patient. I have also reviewed all the pertinent lab results and diagnostic results. I agree with the findings and the plan of care as documented in the PA's/SEED CLEANING MANAGER's documentation. [X] I have reviewed the ED Record and agree with the PA's/SEED CLEANING MANAGER's documentation. [] Additions or exceptions (if any) to the PAs/SEED CLEANING MANAGER's note and plan are summarized below: [Patient has diffuse abdominal pain and pancolitis on her CAT scan. Patient has a white count of 16,000. Patient will be admitted for IV hydration, clear liquid diet, and GI consultation.] (Ángel MONTIEL,Oswaldo Mcclain)
--- NOTE | 2017-08-01 18:35 | RADIOLOGY REPORT ---
EXAMINATION: XR PORTABLE CHEST CLINICAL INFORMATION: Cough. Shortness of breath. COMPARISON: CT angiogram of the chest 11/21/2015. TECHNIQUE: Portable frontal view of the chest was obtained. FINDINGS: There is minimal scarring and/or subsegmental atelectasis within the left lateral costophrenic recess that appears grossly unchanged when compared to the CT scan of the chest from 11/21/2015. No overt consolidative disease. No pleural effusion or pneumothorax. The cardiac silhouette and upper mediastinal contours are normal. Changes of a median sternotomy are noted. No acute osseous finding. IMPRESSION: Minimal scarring and/or subsegmental atelectasis within the left lung base. Otherwise unremarkable examination. No overt consolidative disease or effusion.
[2017-08-01 19:17] LABS: PT 14.4 SEC (9.4-12.5); PTT 39 SEC (25-37)
--- NOTE | 2017-08-01 22:00 | CT SCAN REPORT ---
EXAMINATION: CT ANGIOGRAM ABDOMEN AND PELVIS CLINICAL INFORMATION: Diffuse lower abdominal pain. Diarrhea. Rectal bleeding. COMPARISON: CT abdomen pelvis 04/18/2017 TECHNIQUE: Multiple axial images were obtained through the abdomen and pelvis following the administration of 95 mL of Optiray 320 intravenous contrast. Coronal and sagittal reformatted images are performed at CT scanner. No 3-D images performed. DLP: 246.21 mGy-cm FINDINGS: VASCULAR: There is atherosclerotic vascular irregularity of the aorta without aneurysm or dissection. There is vascular flow in the celiac axis, SMA and renal arteries. There is atherosclerotic vascular wall calcification of these vessels. Patient has had a prior aortobifem bypass. There is partial opacification of the mohegan aorta distal to the graft with runoff into the left internal iliac artery. There is faint flow seen in the left aortoiliac graft with some runoff faintly seen into the left femoral artery. The stent in the right common iliac artery and external iliac artery is entirely occluded. There is no enhancement in the partially visualized right femoral arteries. Vascular opacification is seen of the mesenteric vessels. There is no opacification of the venous structures for this exam due to the timing parameters the study. LUNG BASES: Lung bases are clear. No pleural effusion. LIVER, GALLBLADDER, AND BILIARY TREE: The gallbladder is absent. There is mild intrahepatic and extrahepatic bile duct dilatation. The CBD at the elroy hepatis measures 0.9 cm but tapers to the ampulla with no calcified stones seen in the duct. No focal liver lesion. PANCREAS: Unremarkable. SPLEEN: Spleen normal in size and contour. No focal lesion. ADRENAL GLANDS: Adrenal glands are normal in size. No focal mass. KIDNEYS AND URETERS: The kidneys are normal in size, shape, and attenuation. No hydronephrosis, hydroureter, or calculi seen. No perinephric stranding. BLADDER: Unremarkable. GASTROINTESTINAL TRACT: The stomach is unremarkable. This mild prominence of some small bowel loops but without bowel dilatation or obstruction. There is submucosal edema involving the cecum through the sigmoid colon. This is similar to the CAT scan of 04/18/2017. This is consistent with a pancolitis. There is enhancement of this submucosal throughout the colon. There is no evidence of extravasation of contrast or pooling of contrast in the lumen of the bowel. The appendix is normal. MESENTERY: No focal inflammation. No free fluid. No free air. ABDOMINAL WALL: Small ventral wall hernia at the midline at the upper abdomen containing fat and a portion of the stomach bowel wall. LYMPH NODES: Normal. PELVIC VISCERA: Unremarkable. OSSEOUS STRUCTURES: Degenerative spondylosis of the spine. There is slight anterior wedge compression deformity of the T11 vertebrae this is new since CAT scan of 07/02/2014. This is unchanged since the CAT scan of 08/22/2016. IMPRESSION: 1. Persistent changes of a pancolitis. Though there is enhancement of the mucosa of the colon, there is no extravasation of contrast or evidence of pooling of the contrast to indicate a site of active GI bleed. 2. Chronic vascular changes of aorta. Stable aneurysm of the aorta. Stable aortic bifemoral bypass graft. No enhancement of a right iliac artery graft similar to prior study. No vascular flow seen in the right femoral artery. Limited opacification of the left external iliac artery and left femoral artery.
--- NOTE | 2017-08-01 23:57 | History & Physical ---
Nely Barber 08/01/17 9551: General Information and HPI MD Statement: I have seen and personally examined AALIYAH HARRISON and documented this H&P. The patient is a 62 year old F who presented with a patient stated chief complaint of []. Source of Information: patient, old records Exam Limitations: no limitations History of Present Illness: Ms. Harrison ia 62yo F w/ PMH of HTN, HLD, CAD status post CABG in 2016 on Plavix, COPD, right lower extremity AKA in 05/06 to PVD, chronic back pain, hypothyroidism, presented to ER with nausea/vomiting/diarrhea, abdominal pain, with black stool, however no BRBPR. She was seen here back in April with similar symptoms diagnosed with pancolitis. However she was lost to follow-up because she was unable to get out of her house due to the stairs at home and nobody was there to help. Patient started complaining of abdominal pain and diarrhea for 2 days, start with brownish diarrhea, and later turned black, without any BRBPR. She also vomited, however no blood was seen in the emesis. Patient also complained of lower abdominal pain around the umbilicus around 8-9 10. Patient stated her last diarrhea was several hours before this ER visit, and no more diarrhea because she was not in taking any fluids. She denies any sick contacts, and she claimed that her cooks for without any outside food recently. During our clinical interaction, patient denied fever/night sweat/weight change/ cough/SOB/Chest Pain/Palpitation/exercise intolerance/Abdominal pain/bowel movement/urinary abnormality, or other skin/musculoskeletal/neurological disorders/mood change/insomnia/dietary/appetite change. -Smoking: Active smoker on/off with about 5 cigarettes daily -Alcohol: Denied recent use -Rec Drugs: Former drug abuser Allergies/Medications Allergies: Coded Allergies: erythromycin base (UNKNOWN PT DOESNT REMEMBER 08/22/16) Home Med list Amlodipine Besylate 10 MG TABLET 1 TAB PO DAILY BP (Reported) Aspirin (Ecotrin*) 81 MG TABLET.DR 1 TAB PO DAILY HEART/BLOOD (Reported) Atorvastatin Calcium 80 MG TABLET 1 TAB PO Q2D CHOLESTEROL (Reported) Clopidogrel Bisulfate (Clopidogrel) 75 MG TABLET 1 TAB PO DAILY BLOOD THINNER (Reported) Dicyclomine Hydrochloride (Bentyl) 10 MG CAPSULE 20 MG PO 4 TIMES/DAY PRN DIARRHEA Levothyroxine Sodium 112 MCG TABLET 1 TAB PO DAILY AC THYROID (Reported) Lisinopril 20 MG TABLET 1 TAB PO DAILY BP (Reported) Loperamide HCl (Loperamide) 2 MG TABLET 1 TAB PO DAILY NEEDED DIARRHEA Metoprolol Succinate 50 MG TAB.ER.24H 1 TAB PO DAILY HEART (Reported) Tramadol HCl 50 MG TABLET 1 TAB PO Q8P PRN CHRONIC PAIN Past History Travel History Traveled to [place] past 21 day No Medical History Neurological: CHRONIC NUMBNESS BOTH HANDS. EENT: NONE Cardiovascular: CAD, hypertension, myocardial infarction, PVD Respiratory: bronchitis, emphysema, pneumonia Gastrointestinal: ASCITES Hepatic: NONE Renal: NONE Musculoskeletal: chronic back pain, R ABOVE KNEE AMPUTATION SCOLIOSIS ARTHRITIS Psychiatric: DRUG ABUSE IN PAST. Endocrine: hypothyroidism (noncompliance with medication) Blood Disorders: NONE Cancer(s): NONE MANAGER POST/Reproductive: NONE History of MRSA: Yes History of VRE: No History of CDIFF: No Surgical History Surgical History: Courtney LOPEZ(2016). BO. UPPER EXTREMITY ARTERIAL STENT. L ARTERIAL BYPASS. CABG. Past Family/Social History Family History Relations & Conditions if any MOTHER FH: heart attack, Onset: 40-50. FATHER FH: emphysema Psychosocial History Who Do You Live With? spouse Services at Home: None Primary Language: Nauruan ETOH Use: denies use Living Will? no Power of Investor Relations Associate/HCP? no Functional Ability ADLs Independent: dressing, eating, toileting, bathing. Ambulation: walker IADLs Independent: finances, telephone, medication admin. Needs Assist: transportation. Sexual History Past Sexual History Unobtainable at this time Review of Systems Review of Systems Constitutional: Reports: see HPI. Exam & Diagnostic Data Last 24 Hrs of Vital Signs/I&O Vital Signs Date Time Temp Pulse Resp B/P B/P Pulse O2 O2 Flow FiO2 Mean Ox Delivery Rate 08/016 97.5 98 18 132/76 95 Room Air 08/01 2019 95.5 08/01 1947 60 119/74 08/01 1748 94.9 58 18 109/59 99 Room Air Intake & Output 08/02 0800 08/02 0000 08/01 1600 Intake Total 0 Output Total Balance 0 Intake, Oral 0 Patient 43.998 kg Weight Weight Reported by Patient Measurement Method Physical Exam General Appearance Alert, Oriented X3, Cooperative, Mild Distress Skin No Rashes, No Breakdown Skin Temp/Moisture Exam: Cool/Dry Sepsis Skin Exam (color): Normal for Ethnicity HEENT Atraumatic Neck Supple, No JVD Cardiovascular Regular Rate Lungs Clear to Auscultation, Normal Air Movement Abdomen pain on palpation of lower ab, no rebound tenderness Neurological Normal Speech, Sensation Intact Extremities No Edema, No Tenderness/Swelling, RLE AKA LLE cool to touch however sensations grossly intact. Diminished pulse Last 24 Hrs of Labs/Imer: Laboratory Tests 08/01/17 2255: Lactic Acid 1.3 08/01/17 1848: PT 14.4 H, INR 1.32 H, APTT 39 H 08/01/17 1710: Anion Gap 12, Estimated GFR 46 L, BUN/Creatinine Ratio 15.8, Glucose 103 H, Lactic Acid 3.0 H, Calcium 9.0, Total Bilirubin 1.2, AST 48 H, ALT 47, Alkaline Phosphatase 257 H, Troponin I < 0.01, Total Protein 7.2, Albumin 4.3, Globulin 2.9, Albumin/Globulin Ratio 1.5, Lipase 49, CBC w Diff MAN DIFF ORDERED , RBC 5.52 H, MCV 93.2, MCH 30.2, MCHC 32.4 L, RDW 16.4 H, MPV 9.9, Gran % 90.3 H, Lymphocytes % 8.5 L, Monocytes % 0.7 L, Eosinophils % 0.4, Basophils % 0.1, Absolute Granulocytes 15.2 H, Segmented Neutrophils 72, Band Neutrophils 11 H, Absolute Lymphocytes 1.4, Lymphocytes 12 L, Monocytes 3, Absolute Monocytes 0.1, Eosinophils 1, Absolute Eosinophils 0.1, Basophils 1, Absolute Basophils 0, Platelet Estimate ADEQUATE, Poikilocytosis 1+, Anisocytosis 1+, Macrocytic Cells 1+ Microbiology 08/01 2325 BLOOD: Blood Culture - RECD 08/01 2301 STOOL: Cryptosporidium Antigen - ORD 08/01 2301 STOOL: Giardia Antigen (IMER) - ORD 08/01 2301 STOOL: Clostridium difficile Toxin A & B - ORD 08/01 2301 STOOL: Stool Culture - ORD 08/01 2301 BLOOD: Blood Culture - COLB Assessment/Plan Assessment: Problem list & Assessment: Patient presented with similar complaints on last admission with a clinical picture of pancolitis, however there is no colonoscopy/stool culture data in the system to compare, or to start any active antibiotic treatment. Patient had no more diarrhea like in the ER, and remains stable on H&H, and stable on mental status. Patient meets sepsis criteria with hypothermia, tachycardia, and lactic acidosis , however patient appears stable and conversational, and leukocytosis was likely secondary to hemoconcentrated. However patient had bandemia for which could signify a source of infection. #Sepsis? 2/2 GI bleed/questionable infection w/ Bandemia #Pancolitis likely secondary to ischemic bowel disease #PMH of HTN, HLD, CAD status post CABG in 2016 on Plavix, COPD, right lower extremity AKA in 2013 2/2 to PVD, chronic back pain, hypothyroidism, Hospital Course: -Admit to general medicine tolerable -Dicyclomine for abdominal cramps -Morphine for sever pain as needed. DVT prophylaxis Heparin + ALPS NPO Full Code As Ranked By This Provider Problem List: 1. Pancolitis Core Measures/Misc (12/19) Acute Coronary Syndrome ACS Diagnosis: No Congestive Heart Failure Congestive Heart Failure Diagnosis No Cerebrovascular Accident CVA/TIA Diagnosis: No VTE (View Protocol) VTE Risk Factors Age>40 No Mechanical VTE Prophylaxis d/t N/A MechProphylax Ordered No VTE Pharm Prophylaxis d/t Bleeding (Active) Sepsis (View protocol) Sepsis Present: Yes Geovanny Mclaughlin 08/02/17 0119: Resident Review Statement Resident Statement: examined this patient, discussed with fall internship Other Findings: Patient is a 61-year-old female, smoker(1-2 packs every other day), history of PVD s/p AKA(2013), left femoral bypass(June 2015), hypertension, hyperlipidemia , chronic back pain, emphysema, coronary artery disease S/P open heart surgery with stent placement, mitral valve replacement(pig valve 2016), 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 Patient started feeling sick in the stomach this morning with multiple episodes of dark watery diarrhea. She was nauseous, threw up, had cold sweats and diffuse abdominal pain worse in lower abdomen. Denies any bright red stools per rectum. She she admits to eating teriyaki chicken from a [employer] restaurant which was brought by her daughter. No antibiotic use, recent travel, recent exposure to illness. Most of her meals at home cooked by her . Her bowel movements were multiple today, however denied any chest pain, palpitations , fevers, chills, urinary symptoms. Of note patient was admitted to [facility] [facility] in April for similar complaints and CT scan suggested pancolitis. Her she received 1 dose of ceftriaxone, Flagyl in the ED and later washed off antibiotics. Her Abdominal discomfort improved with fluids and dicyclomine and stool cultures were not sent as she had no bowel movement. Post discharge patient did not follow up with GI stating inability to make to the doctor's appointment due to lack of transportation. Vitals at admission temperature 94.9, pulse 58, respiration 18, blood pressure 109/59, saturating 99% improvement No white count, white count of 16.8 with 11 bands, H&H 16.7/51.5, BUN 19, creatinine 1.2, lactic acid 3(normalized with fluids), alkaline phosphatase 257 Guaiac-negative in the ED No past colonoscopies EKG showed Q waves in the anterior leads, left ventricular hypertrophy, nonspecific T-wave inversions in inferior leads. Physical exam General: Awake, alert, oriented, mild distress HEENT: PERRLA, EOMI, dry mucous membranes Chest: Bilateral breath sounds CVS: Sternotomy scar in midline, S1-S2 Abdomen: Tenderness in the hypogastric area, bowel sounds positive Extremities: AKA right leg, left foot cold, dry skin, diminished pedal pulses Assessment Severe sepsis(white count with bandemia, tachycardia, hypothermia, lactic acidosis, pancolitis Pancolitis. Inflamatory/ infectious etiology.Ischemic colitis less likely Dehydration Diarrhea Melena MARY, likely prerenal secondary to dehydration Elevated alkaline phosphatase Severe peripheral vascular disease, status post AKA right foot History of CAD, s/p mitral valve replacement Abdominal aortic aneurysm Plan * Admit to [facility] * Vitals per protocol * Aspiration precautions * Maintain patient nothing by mouth as is nauseous, advance to clear/full liquids in am * Gentle hydration with IV fluids * IV Zofran for nausea * Stool cultures, vibrio, C. difficile toxin, blood cultures * We will hold off on any antibiotics prior to stool cultures * Dicyclomine/hyoscyamine for abdominal pain * Continue morphine for severe pain * GI consult with Dr. Walls in a.m. Will need outpatient colonoscopy after the active inflammation is over. * farmworker diversified crops consult. Patient is unable to keep up her appointments due to lack of transportation. * Continue all home medications for hypertension, hyperlipidemia, peripheral vascular disease * DVT prophylaxis subcutaneous heparin * Full code Dick MONTIEL, [facility] 08/02/17 0303: Attending MD Review Statement Attending Statement Attending MD Statement: examined this patient, discuss w/resident/PA/IMAGING TECHNOLOGIST, agreed w/resident/PA/IMAGING TECHNOLOGIST, reviewed images, amended to note Attending Assessment/Plan: 62 yo F smoker, severe vasculopath, with h/o PVD s/p right AKA, left femoral bypass, HTN, HLD, chronic back pain, emphysema, CAD s/p stent with open heart surgery and mitral valve replacement with Pig valve (2017), b/l cerebral artery aneurysms, is here for 1-day history of nausea, vomiting, abdominal cramping and multiple episodes of dark colored diarrhea. Denies heartburn, hematemesis or BRBPR. Two days ago, patient ate [place]arraa chicken from a [employer] restaurant that her daughter brought for her. No recent travel or sick contacts. Patient was last admitted in Apr 2017 for similar symptoms, diagnosed with infectious pancolitis (cultures negative) and was managed symptomatically. Patient did not follow up with GI. She states she is not able to get to doctor's appointments as she is wheelchair bound and needs help with transport. Vitals stable, hypothermia resolved. Exam: dry mucosa, Abd soft, lower abdomen tenderness, BS+. Rectal exam: dark brown stool heme neg. Labs: WBC 16.8, H/H 16.7/51.5, Plt 172, bands 11, INR 1.32, BUN 19, creat 1.2, lactic acid 3.0, trop neg. Lipase neg. CTA abd/pelvis: persistent changes of pancolitis, with enhancement of mucosa of colon, no active GI bleed. CXR: minimal scarring and/or subsegmental atelectasis within left lung base. EKG: sinus rhythm, LVH, no acute changes. Echo (2016): EF > 55%, stage 1 diastolic dysfunction. Assessment and plan: 1. Pancolitis ?Infectious, ?Inflammatory, less likely ischemic colitis 2. Sepsis 3. Lactic acidosis 4. MARY, dehydration 5. Vasculopathy, CAD, PVD. - Admit to General medicine - NPO, advance diet if tolerated in AM - Serial abdomen exams - IV fluids, trend lactic acid and renal functions - Anti-emetics - Stool cultures, Cdiff, ova-parasite - GI consult - As per GI recommendations, holding off on antibiotics until stool cultures sent. - Dicyclomine for abdominal cramps - farmworker diversified crops consult to help with patient's need for transportation to appointments - Smoking cessation counseling - Resume all home meds including aspirin and plavix - Pain management - Check urinalysis and urine tox screen - Total respiratory care with nebs as needed - Incentive spirometry DVT ppx Hep SC. Full code.
[2017-08-02 01:26] VITALS: BP 122/78
--- NOTE | 2017-08-02 03:03 | Admission Certification ---
Admission Certification Certification Statement - As attending physician, I certify that at the time of - admission, based on clinical presentation, severity of - symptoms, need for further diagnostic testing and - therapeutic interventions, and risk of adverse outcomes - without in-hospital treatment, in my clinical assessment, - this patient requires an acute hospital stay for a minimum - of two nights or longer. I have also considered psychsocial - factors such as support system, advanced age, financial - issues, cognitive issues, and failed out-patient treatments, - past re-admission history, safety of patient, and lack of - compliance as applicable. Specific rationale supporting this admission is: Pancolitis
[2017-08-02 06:10] VITALS: BP 120/80
--- NOTE | 2017-08-02 07:26 | PN- Housestaff ---
Theodora MONTIEL,Deshawn 08/02/17 0726: Subjective Follow-up For: Nausea/vomiting/black stools Complaints: no complaints Subjective: I followed up and examined the patient today. She is resting comfortably in bed , does not have any nausea anymore, has not vomited, had only one episode of bowel movement yesterday evening and is not having any diarrhea. She did mention that she had one episode of black colored stool when it did occur. IVF running at 75 ml/hr. pt is NPO. Review of Systems Constitutional: Reports: see HPI. Objective Last 24 Hrs of Vital Signs/I&O Vital Signs Date Time Temp Pulse Resp B/P B/P Pulse O2 O2 Flow FiO2 Mean Ox Delivery Rate 08/02 1451 97.4 52 20 110/70 92 Room Air 08/02 1406 Room Air 08/02 0910 60 122/84 08/02 0910 60 122/84 08/02 0610 97.3 52 20 120/80 08/02 0126 97.6 52 20 122/78 94 Room Air 08/01 2356 97.5 98 18 132/76 95 Room Air 08/01 2019 95.5 08/01 1947 60 119/74 Intake & Output 08/02 1600 08/02 0800 08/02 0000 Intake Total 830 300 0 Output Total 850 1000 Balance -20 -700 0 Intake, IV 800 300 Intake, Oral 30 0 Output, Urine 850 1000 Patient 43.998 kg 43.998 kg Weight Weight Bed scale Reported by Patient Measurement Method Physical Exam General Appearance: Alert, Oriented X3, Cooperative, No Acute Distress, thin Other Physical Findings: Skin No Rashes, No Breakdown Skin Temp/Moisture Exam: Cool/Dry Dry mucosa. HEENT Atraumatic Neck Supple, No JVD Cardiovascular Regular Rate Lungs Clear to Auscultation, Normal Air Movement Abdomen pain on palpation of lower ab, no rebound tenderness or guarding/ rigidity Neurological grossly intact Extremities No Edema, No Tenderness/Swelling, RLE AKA, LLE grossly normal Vasc Diminished pulse generalized. Current Medications: Current Medications Sig/Eduardo Start time Last Medication Dose Route Stop Time Status Admin Acetaminophen 325 MG Q6P PRN 08/02 0015 AC PO Amlodipine Besylate 10 MG DAILY 08/02 899 AC 08/02 PO 0910 Aspirin Buffered 81 MG DAILY 08/02 899 AC 08/02 PO 1702 Atorvastatin Calcium 80 MG Q2D 08/02 0200 AC 08/02 PO 0222 Clopidogrel Bisulfate 75 MG DAILY 08/02 0900 DC PO Dicyclomine HCl 20 MG 4 TIMES/DAY PRN 08/02 0130 AC PO Levothyroxine Sodium 0.112 MG DAILY AC 08/02 0700 AC 08/02 PO 0508 Metoprolol Succinate 50 MG DAILY 08/02 0900 AC 08/02 PO 0910 Morphine Sulfate 2 MG Q4P PRN 08/02 0130 AC 08/02 IV 170 Morphine Sulfate 0 .STK-MED ONE 08/01 2237 DC .ROUTE Morphine Sulfate 2 MG ONCE ONE 08/01 2214 DC 08/01 IV 08/02 2215 2337 Morphine Sulfate 0 .STK-MED ONE 08/01 194 DC .ROUTE Morphine Sulfate 4 MG ONCE ONE 08/01 193 DC 08/01 IV 08/01 Omeprazole 20 MG DAILY AC 08/02 1826 AC PO Ondansetron HCl 4 MG Q6P PRN 08/02 013 AC IV Sodium Chloride 1,000 ML Q13H 08/02 013 DC 08/02 IV 08/02 1129 1313 Sodium Chloride 1,000 ML BOLUS ONE 08/01 2214 DC 08/01 IV 08/01 2314 2230 Tramadol HCl 50 MG Q8P PRN 08/02 013 AC 08/02 PO 0501 Last 24 Hrs of Lab/Imer Results Last 24 Hrs of Labs/Mics: Laboratory Tests 08/02/17 0743: Anion Gap 12, Estimated GFR > 60, BUN/Creatinine Ratio 15.6, CBC w Diff NO MAN DIFF REQ, RBC 3.88 L, MCV 92.2, MCH 30.3, MCHC 32.9 L, RDW 16.1 H, MPV 9.6, Gran % 79.6 H, Lymphocytes % 15.2 L, Monocytes % 3.6, Eosinophils % 1.0, Basophils % 0.6, Absolute Granulocytes 7.7 H, Absolute Lymphocytes 1.5, Absolute Monocytes 0.4, Absolute Eosinophils 0.1, Absolute Basophils 0.1 08/02/17 0212: Lactic Acid 1.1 08/01/175: Lactic Acid 1.3 08/01/17 1848: PT 14.4 H, INR 1.32 H, APTT 39 H Microbiology 08/01 2325 BLOOD: Blood Culture - RES 08/01 2301 STOOL: Cryptosporidium Antigen - CAN Cancelled: SPECIMEN NOT RECEIVED IN LABORATORY 08/01 2301 STOOL: Giardia Antigen (IMER) - CAN Cancelled: SPECIMEN NOT RECEIVED IN LABORATORY 08/01 2301 STOOL: Clostridium difficile Toxin A & B - CAN Cancelled: SPECIMEN NOT RECEIVED IN LABORATORY 08/01 2301 STOOL: Stool Culture - CAN Cancelled: SPECIMEN NOT RECEIVED IN LABORATORY 08/01 2301 BLOOD: Blood Culture - CAN Cancelled: SPECIMEN NOT RECEIVED IN LABORATORY Assessment/Plan Assessment: Assessment - Sepsis (white count with bandemia, tachycardia, hypothermia, lactic acidosis, pancolitis) - Pancolitis, not specific only from imaging per GI - Dehydration, improving - possible Melena but EMR shows Negative guiac stool from last evening - MARY, likely prerenal secondary to dehydration, resolving already - Elevated alkaline phosphatase - Severe peripheral vascular disease, status post AKA right foot - History of CAD, s/p mitral valve replacement - Abdominal aortic aneurysm Plan * Aspiration precautions * Advanced IV to clear liquid diet, had increased IVF to 100 ml/hr earlier * IV Zofran for nausea * Stool cultures, vibrio, C. difficile toxin, blood cultures, pending * We will hold off on any antibiotics prior to stool cultures * Dicyclomine/hyoscyamine for abdominal pain * GI consult with Dr. Jarvis. Will need outpatient colonoscopy, and also needs to be OFF plavix for at lease five days then for biopsy then. * per GI, she probably had elvira-Henderson tear which will heal in few days and does not need aggressive intervetion, gavino since her VSS and H/H is stable too. * Severe vascular disease. Needs out patient vascular surgery referral. Could have component of chronic ischemic bowel due to this. * tannery worker consult. Patient is unable to keep up her appointments due to lack of transportation. * Continuing all home medications for hypertension, hyperlipidemia, peripheral vascular disease * DVT prophylaxis subcutaneous heparin * Full code Problem List: 1. Colitis 2. Peripheral vascular occlusive disease Pain Ratin Pain Location: all over Pain Goal: Pain 4 or less Pain Plan: prn Tomorrow's Labs & Rationales: CBC, BEP Steve Garcia MD 08/02/17 9337: Attending MD Review Statement Attending Statement Attending MD Statement: examined this patient, discuss w/resident/PA/PLUGGER WORKER, agreed w/resident/PA/PLUGGER WORKER, reviewed EMR data (avail), discussed with nursing, discussed with case mgmt, reviewed images, amended to note Attending Assessment/Plan: The patient was seen and discussed with house staff. Appreciate GI evaluation. The patient did have diarrhea prior to admission, however has had none since admission. Will advance diet as per GI and plan on OP follow-up as suggested if is able to eat without recurrence of symptoms. Note, the patient states that eating [place] food (she does not normally eat) may have triggered her symptoms. Stool heme negative. Discussed with case management the patient's transportation problems (unable to get to MD appointments due to wheelchair status). Social service evaluating her options for transport.
[2017-08-02 08:37] LABS: ABSOLUTE BASOPHIL COUNT 0.1 /CUMM (0.0-0.2); ABSOLUTE EOSINOPHIL COUNT 0.1 /CUMM (0.0-0.7); ABSOLUTE GRANULOCYTE CT 7.7 /CUMM (1.4-6.5); ABSOLUTE LYMPH COUNT 1.5 /CUMM (1.2-3.4); ABSOLUTE MONOCYTE COUNT 0.4 /CUMM (0.10-0.60); BASOPHIL % 0.6 % (0.0-2.0); GRANULOCYTE % 79.6 % (42.2-75.2); MEAN CORPUSCULAR HGB 30.3 PG (27.0-31.0); MEAN CORPUSCULAR HGB CONC 32.9 G/DL (33.0-37.0); MEAN CORPUSCULAR VOLUME 92.2 FL (81.0-99.0); MEAN PLATELET VOLUME 9.6 FL (7.4-10.4); RBC DISTRIBUTION WIDTH 16.1 % (11.5-14.5)
[2017-08-02 08:56] LABS: RED BLOOD CELL CT 3.88 /CUMM (4.20-5.40)
[2017-08-02 08:57] LABS: HEMATOCRIT 35.8 % (37-47)
[2017-08-02 10:17] LABS: PLATELET COUNT 149 /CUMM (130-400); WHITE BLOOD CELL COUNT 9.7 /CUMM (4.8-10.8)
[2017-08-02 14:51] VITALS: BP 110/70
--- NOTE | 2017-08-02 17:06 | Cons- Gastroenterology ---
General Information and HPI Consulting Request Date of Consult: 08/02/17 Requested By: Steve Garcia MD Reason for Consult: 1. Melena 2. Lower abdominal pain 3. Abnormal CT scan of the abdomen 4. History of colitis Source of Information: patient, electronic medical record Exam Limitations: no limitations History of Present Illness: Ms. Harrison is a 62-year-old white female with a past medical history of coronary artery disease and vasculopathy status post right [id number] amputation. Ms. Harrison is status post CABG in 2017 on Plavix. She has a history of COPD, right lower extremity AKA in 2013 due to PVD. She also has a history of chronic back pain. She presented to ER with with a chief complaint of nausea and vomiting which lasted approximately 45 minutes. She reports that she vomited undigested food followed by bilious material. She denies hematemesis. She initially passed multiple formed brown stools which were followed by melenic diarrheal stools. She is had no stool since admission. She also reports that she has had lower abdominal discomfort which appears to be chronic. She was last seen in [place] in April when she presented for Jillian diarrhea. At that time this was felt to be infectious in origin. Currently she has not had any further nausea or vomiting is not having any upper gastrointestinal discomfort. An has not had a stool since admission. She reports that she had a colonoscopy 1 year ago which was entirely normal. She did have a CT scan on admission the results of which are as follows. FINDINGS: VASCULAR: There is atherosclerotic vascular irregularity of the aorta without aneurysm or dissection. There is vascular flow in the celiac axis, SMA and renal arteries. There is atherosclerotic vascular wall calcification of these vessels. Patient has had a prior aortobifem bypass. There is partial opacification of the [place] aorta distal to the graft with runoff into the left internal iliac artery. There is faint flow seen in the left aortoiliac graft with some runoff faintly seen into the left femoral artery. The stent in the right common iliac artery and external iliac artery is entirely occluded. There is no enhancement in the partially visualized right femoral arteries. Vascular opacification is seen of the mesenteric vessels. There is no opacification of the venous structures for this exam due to the timing parameters the study. LUNG BASES: Lung bases are clear. No pleural effusion. LIVER, GALLBLADDER, AND BILIARY TREE: The gallbladder is absent. There is mild intrahepatic and extrahepatic bile duct dilatation. The CBD at the elroy hepatis measures 0.9 cm but tapers to the ampulla with no calcified stones seen in the duct. No focal liver lesion. PANCREAS: Unremarkable. SPLEEN: Spleen normal in size and contour. No focal lesion. ADRENAL GLANDS: Adrenal glands are normal in size. No focal mass. KIDNEYS AND URETERS: The kidneys are normal in size, shape, and attenuation. No hydronephrosis, hydroureter, or calculi seen. No perinephric stranding. BLADDER: Unremarkable. GASTROINTESTINAL TRACT: The stomach is unremarkable. This mild prominence of some small bowel loops but without bowel dilatation or obstruction. There is submucosal edema involving the cecum through the sigmoid colon. This is similar to the CAT scan of 04/18/2017. This is consistent with a pancolitis. There is enhancement of this submucosal throughout the colon. There is no evidence of extravasation of contrast or pooling of contrast in the lumen of the bowel. The appendix is normal. MESENTERY: No focal inflammation. No free fluid. No free air. ABDOMINAL WALL: Small ventral wall hernia at the midline at the upper abdomen containing fat and a portion of the stomach bowel wall. LYMPH NODES: Normal. PELVIC VISCERA: Unremarkable. OSSEOUS STRUCTURES: Degenerative spondylosis of the spine. There is slight anterior wedge compression deformity of the T11 vertebrae this is new since CAT scan of 07/02/2014. This is unchanged since the CAT scan of 08/22/2016. IMPRESSION: 1. Persistent changes of a pancolitis. Though there is enhancement of the mucosa of the colon, there is no extravasation of contrast or evidence of pooling of the contrast to indicate a site of active GI bleed. 2. Chronic vascular changes of aorta. Stable aneurysm of the aorta. Stable aortic bifemoral bypass graft. No enhancement of a right iliac artery graft similar to prior study. No vascular flow seen in the right femoral artery. Limited opacification of the left external iliac artery and left femoral artery. Her last dose of Plavix was the day of admission. Allergies/Medications Allergies: Coded Allergies: erythromycin base (UNKNOWN PT DOESNT REMEMBER 08/22/16) Home Med List: Amlodipine Besylate 10 MG TABLET 1 TAB PO DAILY BP (Reported) Aspirin (Ecotrin*) 81 MG TABLET.DR 1 TAB PO DAILY HEART/BLOOD (Reported) Atorvastatin Calcium 80 MG TABLET 1 TAB PO Q2D CHOLESTEROL (Reported) Clopidogrel Bisulfate (Clopidogrel) 75 MG TABLET 1 TAB PO DAILY BLOOD THINNER (Reported) Dicyclomine Hydrochloride (Bentyl) 10 MG CAPSULE 20 MG PO 4 TIMES/DAY PRN DIARRHEA Levothyroxine Sodium 112 MCG TABLET 1 TAB PO DAILY AC THYROID (Reported) Lisinopril 20 MG TABLET 1 TAB PO DAILY BP (Reported) Loperamide HCl (Loperamide) 2 MG TABLET 1 TAB PO DAILY NEEDED DIARRHEA Metoprolol Succinate 50 MG TAB.ER.24H 1 TAB PO DAILY HEART (Reported) Tramadol HCl 50 MG TABLET 1 TAB PO Q8P PRN CHRONIC PAIN Current Medications: Current Medications Sig/Eduardo Start time Last Medication Dose Route Stop Time Status Admin Acetaminophen 325 MG Q6P PRN 08/02 0015 AC PO Acetaminophen 0 .STK-MED ONE 08/01 180 DC IV Acetaminophen 1,000 MG ONCE ONE 08/01 173 DC 08/01 N/A 1 UNIT IV 08/01 1744 1815 Amlodipine Besylate 10 MG DAILY 08/02 0900 AC 08/02 PO 0910 Aspirin Buffered 81 MG DAILY 08/02 09 AC PO Atorvastatin Calcium 80 MG Q2D 08/02 0200 AC 08/02 PO 0222 Clopidogrel Bisulfate 75 MG DAILY 08/02 0900 DC PO Dicyclomine HCl 20 MG 4 TIMES/DAY PRN 08/02 0130 AC PO Levothyroxine Sodium 0.112 MG DAILY AC 08/02 0700 AC 08/02 PO 0508 Metoprolol Succinate 50 MG DAILY 08/02 0900 AC 08/02 PO 0910 Morphine Sulfate 2 MG Q4P PRN 08/02 0130 AC 08/02 IV 1312 Morphine Sulfate 0 .STK-MED ONE 08/01 2238 DC .ROUTE Morphine Sulfate 2 MG ONCE ONE 08/01 2215 DC 08/01 IV 08/01 2216 2337 Morphine Sulfate 0 .STK-MED ONE 08/01 1948 DC .ROUTE Morphine Sulfate 4 MG ONCE ONE 08/01 1930 DC 08/01 IV 08/01 193 1954 Ondansetron HCl 4 MG Q6P PRN 08/02 0130 AC IV Ondansetron HCl 0 .STK-MED ONE 08/01 1805 DC .ROUTE Ondansetron HCl 4 MG ONCE ONE 08/01 1730 DC 08/01 IV 08/01 1731 1815 Sodium Chloride 1,000 ML Q13H 08/02 0130 DC 08/02 IV 08/02 1129 1313 Sodium Chloride 1,000 ML BOLUS ONE 08/01 2215 DC 08/01 IV 08/01 2314 2230 Sodium Chloride 1,000 ML BOLUS ONE 08/01 1730 DC 08/01 IV 08/01 1829 1830 Tramadol HCl 50 MG Q8P PRN 08/02 0130 AC 08/02 PO 0501 Past History Travel History Traveled to [place] past 21 day No Medical History Neurological: CHRONIC NUMBNESS BOTH HANDS. EENT: NONE Cardiovascular: CAD, hypertension, myocardial infarction, PVD Respiratory: bronchitis, emphysema, pneumonia Gastrointestinal: ASCITES Hepatic: NONE Renal: NONE Musculoskeletal: chronic back pain, R ABOVE KNEE AMPUTATION SCOLIOSIS ARTHRITIS Psychiatric: DRUG ABUSE IN PAST. Endocrine: hypothyroidism (noncompliance with medication) Blood Disorders: NONE Cancer(s): NONE CHANNEL MAN/Reproductive: NONE Surgical History Surgical History: Courtney LOPEZ(2016). BO. UPPER EXTREMITY ARTERIAL STENT. L ARTERIAL BYPASS. CABG. Family History Relations & Conditions If Any: MOTHER FH: heart attack, Onset: 40-50. FATHER FH: emphysema Psychosocial History Who Do You Live With? spouse Services at Home: None Primary Language: Kiswahili Smoking Status: Current Everyday Smoker ETOH Use: denies use Living Will? no Power of Training Project Manager/HCP? no Functional Ability ADLs Independent: dressing, eating, toileting, bathing. Ambulation: walker IADLs Independent: finances, telephone, medication admin. Needs Assist: transportation. Exam & Diagnostic Data Vital Signs and I&O Vital Signs Date Time Temp Pulse Resp B/P B/P Pulse O2 O2 Flow FiO2 Mean Ox Delivery Rate 08/02 1451 97.4 52 20 110/70 92 Room Air 08/02 1406 Room Air 08/02 0910 60 122/84 08/02 0910 60 122/84 08/02 0610 97.3 52 20 120/80 08/02 0126 97.6 52 20 122/78 94 Room Air 08/01 2356 97.5 98 18 132/76 95 Room Air 08/01 2019 95.5 08/01 1947 60 119/74 08/01 1748 94.9 58 18 109/59 99 Room Air Intake & Output 08/02 1600 08/02 0400 08/01 1600 08/01 0400 07/31 0400 Intake Total 1130 0 Output Total 1850 Balance -720 0 Intake, IV 1100 Intake, Oral 30 0 Output, Urine 1850 Patient 96 lb 15.98 oz Weight Weight Bed scale Measurement Method Physical Exam General Appearance: well developed/nourished, no apparent distress Head: atraumatic, normal appearance Eyes: Bilateral: normal appearance. Ears, Nose, Throat: hearing grossly normal Neck: supple, full range of motion Respiratory: lungs clear Cardiovascular: regular rate/rhythm, normal S1 and S2 without rub, murmur, or gallop Gastrointestinal: normal bowel sounds, soft, non-tender, no organomegaly Neurologic/Psych: awake, alert, oriented x 3 Cranial Nerves: grossly intact cranial nerves Skin: intact, pallor Results Pertinent Lab Results: Laboratory Tests 08/02 08/02 08/01 08/01 0743 0212 2255 1848 Chemistry Sodium (137 - 145 mmol/L) 142 Potassium (3.5 - 5.1 mmol/L) 3.6 Chloride (98 - 107 mmol/L) 107 Carbon Dioxide (22 - 30 mmol/L) 23 Anion Gap (5 - 16) 12 BUN (7 - 17 mg/dL) 14 Creatinine (0.5 - 1.0 mg/dL) 0.9 Estimated GFR (>60 ml/min) > 60 BUN/Creatinine Ratio (7 - 25 %) 15.6 Lactic Acid (0.7 - 2.1 mmol/L) 1.1 1.3 Coagulation PT (9.4 - 12.5 SEC) 14.4 H INR (0.90 - 1.19) 1.32 H APTT (25 - 37 SEC) 39 H Hematology CBC w Diff NO MAN DIFF REQ WBC (4.8 - 10.8 /CUMM) 9.7 RBC (4.20 - 5.40 /CUMM) 3.88 L Hgb (12.0 - 16.0 G/DL) 11.8 L Hct (37 - 47 %) 35.8 L MCV (81.0 - 99.0 FL) 92.2 MCH (27.0 - 31.0 PG) 30.3 MCHC (33.0 - 37.0 G/DL) 32.9 L RDW (11.5 - 14.5 %) 16.1 H Plt Count (130 - 400 /CUMM) 149 MPV (7.4 - 10.4 FL) 9.6 Gran % (42.2 - 75.2 %) 79.6 H Lymphocytes % (20.5 - 51.1 %) 15.2 L Monocytes % (1.7 - 9.3 %) 3.6 Eosinophils % (0 - 5 %) 1.0 Basophils % (0.0 - 2.0 %) 0.6 Absolute Granulocytes (1.4 - 6.5 /CUMM) 7.7 H Absolute Lymphocytes (1.2 - 3.4 /CUMM) 1.5 Absolute Monocytes (0.10 - 0.60 /CUMM) 0.4 Absolute Eosinophils (0.0 - 0.7 /CUMM) 0.1 Absolute Basophils (0.0 - 0.2 /CUMM) 0.1 08/01 08/01 1710 1646 Chemistry Sodium (137 - 145 mmol/L) 138 Potassium (3.5 - 5.1 mmol/L) 4.0 Chloride (98 - 107 mmol/L) 101 Carbon Dioxide (22 - 30 mmol/L) 25 Anion Gap (5 - 16) 12 BUN (7 - 17 mg/dL) 19 H Creatinine (0.5 - 1.0 mg/dL) 1.2 H Estimated GFR (>60 ml/min) 46 L BUN/Creatinine Ratio (7 - 25 %) 15.8 Glucose (65 - 99 mg/dL) 103 H Lactic Acid (0.7 - 2.1 mmol/L) 3.0 H Calcium (8.4 - 10.2 mg/dL) 9.0 Total Bilirubin (0.2 - 1.3 mg/dL) 1.2 AST (14 - 36 U/L) 48 H ALT (9 - 52 U/L) 47 Alkaline Phosphatase (<127 U/L) 257 H Troponin I (< 0.11 ng/ml) < 0.01 Total Protein (6.3 - 8.2 g/dL) 7.2 Albumin (3.5 - 5.0 g/dL) 4.3 Globulin (1.9 - 4.2 gm/dL) 2.9 Albumin/Globulin Ratio (1.1 - 2.2 %) 1.5 Lipase (23 - 300 U/L) 49 Hematology CBC w Diff MAN DIFF ORDERED WBC (4.8 - 10.8 /CUMM) 16.8 H RBC (4.20 - 5.40 /CUMM) 5.52 H Hgb (12.0 - 16.0 G/DL) 16.7 H Hct (37 - 47 %) 51.5 H MCV (81.0 - 99.0 FL) 93.2 MCH (27.0 - 31.0 PG) 30.2 MCHC (33.0 - 37.0 G/DL) 32.4 L RDW (11.5 - 14.5 %) 16.4 H Plt Count (130 - 400 /CUMM) 172 MPV (7.4 - 10.4 FL) 9.9 Gran % (42.2 - 75.2 %) 90.3 H Lymphocytes % (20.5 - 51.1 %) 8.5 L Monocytes % (1.7 - 9.3 %) 0.7 L Eosinophils % (0 - 5 %) 0.4 Basophils % (0.0 - 2.0 %) 0.1 Absolute Granulocytes (1.4 - 6.5 /CUMM) 15.2 H Segmented Neutrophils (42.2 - 75.2 %) 72 Band Neutrophils (0.0 - 5.0 %) 11 H Absolute Lymphocytes (1.2 - 3.4 /CUMM) 1.4 Lymphocytes (20.5 - 51.1 %) 12 L Monocytes (1.7 - 9.3 %) 3 Absolute Monocytes (0.10 - 0.60 /CUMM) 0.1 Eosinophils (0 - 5.0 %) 1 Absolute Eosinophils (0.0 - 0.7 /CUMM) 0.1 Basophils (0.0 - 2.0 %) 1 Absolute Basophils (0.0 - 0.2 /CUMM) 0 Platelet Estimate (ADEQUATE) ADEQUATE Poikilocytosis 1+ Anisocytosis 1+ Macrocytic Cells 1+ Urines Urine Color Cancelled Urine Clarity Cancelled Urine pH Cancelled Ur Specific Stevenson Cancelled Urine Protein Cancelled Urine Ketones Cancelled Urine Nitrite Cancelled Urine Bilirubin Cancelled Urine Urobilinogen Cancelled Ur Leukocyte Esterase Cancelled Ur Microscopic Cancelled Urine Hemoglobin Cancelled Urine Glucose Cancelled Assessment/Plan Assessment/Recommendations: ASSESSMENT: 1. Pancolitis seen on CT scan. This is a nonspecific finding. Patient has no symptoms to suggest colitis. She has lower abdominal discomfort but it is not associated with diarrhea or rectal bleeding or hematochezia. 2. Given the presence of vascular disease as follows: partial opacification of the [place] aorta distal to the graft with runoff into the left internal iliac artery. There is faint flow seen in the left aortoiliac graft with some runoff faintly seen into the left femoral artery. The stent in the right common iliac artery and external iliac artery is entirely occluded. There is no enhancement in the partially visualized right femoral arteries. It is possible that some of her lower abdominal discomfort is related to chronic ischemic processes. 3. Nausea vomiting melena. Patient most likely had small Ling-Henderson tear related to 45 minutes worth of vomiting. Patient has had no further melena and has not had a bowel movement for over 36 hours suggesting that there has been no ongoing bleeding. Further her H&H is stable. RECOMMENDATIONS: 1. Patient last Plavix one day ago. This would preclude endoscopic procedures with intervention. As patient has no signs of active bleeding at this time and is not having diarrhea to suggest colitis both EGD and colonoscopy can safely be deferred to the outpatient setting. Further patient had a colonoscopy within the past year at [facility] that patient has reported was completely normal. 2. Recommend outpatient workup for possible mesenteric ischemia would have patient seen by her vascular surgeon for dynamic CTA and further therapy as needed. Pending that evaluation would have patient follow-up with me and if indicated by vascular surgery would pursue outpatient EGD and colonoscopy with patient off of Plavix for 5 days. 3. Would advance patient's diet 4. Would start patient on omeprazole 20 mg by mouth every morning. Consult Acknowledgment - Thank you for your consult request.
[2017-08-02 22:00] VITALS: BP 138/84
[2017-08-03 06:20] VITALS: BP 136/90
--- NOTE | 2017-08-03 07:42 | PN- Housestaff ---
Theodora MONTIEL,Deshawn 08/03/17 0742: Subjective Follow-up For: Nausea/vomiting/black stools Complaints: no complaints Subjective: I followed up and examined the patient today. She is resting comfortably in bed , does not have any nausea, vomiting, and has not had a bowel movement since the night before. She has been receiveing opiates for pain. VSS, no hypotension, hematemesis, tachycardia, bruises. Review of Systems Constitutional: Reports: no symptoms. Objective Last 24 Hrs of Vital Signs/I&O Vital Signs Date Time Temp Pulse Resp B/P B/P Pulse O2 O2 Flow FiO2 Mean Ox Delivery Rate 08/03 1455 98.2 54 20 118/70 91 Room Air 08/03 0900 64 16 136/70 08/03 0620 97.4 50 20 136/90 92 08/02 2200 97.8 54 18 138/84 92 Room Air Intake & Output 08/03 1600 08/03 0800 08/03 0000 Intake Total 612 939 8134 Output Total 218 489 5379 Balance 50 -160 200 Intake, IV 20 Intake, Oral 701 516 2903 Output, Urine 068 721 5885 Patient 43.998 kg Weight Physical Exam General Appearance: Alert, Oriented X3, Cooperative, No Acute Distress, thin Other Physical Findings: Skin No Rashes, No Breakdown Mucosa moist today HEENT Atraumatic Neck Supple, No JVD Cardiovascular Regular Rate Lungs Clear to Auscultation, Normal Air Movement Abdomen pain on palpation of lower ab, no rebound tenderness or guarding/ rigidity Neurological grossly intact Extremities No Edema, No Tenderness/Swelling, RLE AKA, LLE grossly normal Vasc Diminished pulse generalized Current Medications: Current Medications Sig/Eduardo Start time Last Medication Dose Route Stop Time Status Admin Acetaminophen 325 MG Q6P PRN 08/02 0015 AC PO Amlodipine Besylate 10 MG DAILY 08/02 899 AC 08/03 PO 0847 Aspirin Buffered 81 MG DAILY 08/02 899 AC 08/03 PO 0847 Atorvastatin Calcium 80 MG Q2D 08/02 0200 AC 08/02 PO 0222 Dicyclomine HCl 20 MG 4 TIMES/DAY PRN 08/02 0130 AC PO Levothyroxine Sodium 0.112 MG DAILY AC 08/02 07 AC 08/03 PO 0550 Metoprolol Succinate 50 MG DAILY 08/02 899 AC 08/03 PO 0847 Morphine Sulfate 2 MG Q4P PRN 08/02 0130 AC 08/03 IV 1642 Omeprazole 20 MG DAILY AC 08/02 1826 AC PO Ondansetron HCl 4 MG Q6P PRN 08/02 0130 AC IV Patient Medication 1 ED ONE ONE 08/03 1115 DC 08/03 Teaching ED 08/03 1116 1300 Polyethylene Glycol 17 GM DAILY NEEDED PRN 08/03 1345 AC PO Tramadol HCl 50 MG Q8P PRN 08/02 0130 AC 08/03 PO 1259 Last 24 Hrs of Lab/Imer Results Last 24 Hrs of Labs/Mics: Laboratory Tests 08/03/17 1050: Urine Color YEL, Urine Clarity CLEAR, Urine pH 6.5, Ur Specific [place] 1.010, Urine Protein NEG, Urine Ketones NEG, Urine Nitrite NEG, Urine Bilirubin NEG, Urine Urobilinogen 0.2, Ur Leukocyte Esterase NEG, Ur Microscopic EXAM NOT REQUIRED, Urine Hemoglobin NEG, Urine Glucose NEG 08/03/17 0707: Anion Gap 9, Estimated GFR > 60, BUN/Creatinine Ratio 11.4, CBC w Diff NO MAN DIFF REQ, RBC 3.83 L, MCV 92.4, MCH 30.0, MCHC 32.4 L, RDW 16.5 H, MPV 9.6, Gran % 70.6, Lymphocytes % 19.9 L, Monocytes % 6.7, Eosinophils % 1.8, Basophils % 1.0, Absolute Granulocytes 5.6, Absolute Lymphocytes 1.6, Absolute Monocytes 0.5, Absolute Eosinophils 0.1, Absolute Basophils 0.1 Assessment/Plan Assessment: Assessment - Sepsis (white count with bandemia, tachycardia, hypothermia, lactic acidosis, pancolitis) - Likely Ling Henderson tear, H/H did drop from 16 to 11, likely a drop and dilution result - Pancolitis, not specific only from imaging per GI - Dehydration, improving - possible samuel but EMR shows Negative guiac stool from 08/03/17 evening - MARY, likely prerenal secondary to dehydration, resolving already - Elevated alkaline phosphatase - Severe peripheral vascular disease, status post AKA right foot - History of CAD, s/p mitral valve replacement - Abdominal aortic aneurysm - Hypokalemia Plan * Advanced regular diet * IV Zofran PRN for nausea * Stool cultures, vibrio, C. difficile toxin, blood cultures, pending * We will hold off on any antibiotics prior to stool cultures * Dicyclomine/hyoscyamine for abdominal pain * GI consulted with Dr. Jarvis. Will need outpatient colonoscopy, and also needs to be OFF plavix for at lease five days then for biopsy then. * per GI, she probably had ling-Henderson tear which will heal in few days and does not need aggressive intervetion, gavino since her VSS and H/H is stable too. * Severe vascular disease. Needs out patient vascular surgery referral. Could have component of chronic ischemic bowel due to this. * hog worker consult. Patient is unable to keep up her appointments due to lack of transportation. * K-dur 40 meq PO given for Hypokalemia. Will check again tomorrow. * Pain meds: Patient agreed to continue with Tramadol 50 mg PO, and will try another PO med after this if this is not adequate. The PO med that controlls her pain will be the one she will be discharged with. Morphine was discontinued today, in view of her constipation, and risk of fall (as an amputee who does NOT use wheelchair, has stairs, and hops around). IV meds reserved for severe pain not controlled by oral. * Continuing all home medications for hypertension, hyperlipidemia, peripheral vascular disease * DVT prophylaxis subcutaneous heparin * Full code Problem List: 1. Colitis 2. Peripheral vascular occlusive disease Pain Ratin Pain Location: all over Pain Goal: Pain 4 or less Pain Plan: see above Tomorrow's Labs & Rationales: CBC, BEP Radha MONTIEL,Steve 08/03/17 1741: Attending Review Statement Attending Statement Attending MD Statement: examined this patient, discuss w/resident/PA/BLOW DOWN OPERATOR, agreed w/resident/PA/BLOW DOWN OPERATOR, reviewed EMR data (avail), discussed with nursing, discussed with case mgmt, amended to note Attending Assessment/Plan: The patient was seen and discussed with house staff, nursing, and case management. She has had no diarrhea since admission. Still requesting IV morphine and attempting to transition to po Tramadol. Still evaluating options for transportation to and from appointments. Await PT follow-up.
[2017-08-03 09:00] VITALS: BP 136/70
[2017-08-03 09:03] LABS: ABSOLUTE BASOPHIL COUNT 0.1 /CUMM (0.0-0.2); ABSOLUTE EOSINOPHIL COUNT 0.1 /CUMM (0.0-0.7); ABSOLUTE GRANULOCYTE CT 5.6 /CUMM (1.4-6.5); ABSOLUTE LYMPH COUNT 1.6 /CUMM (1.2-3.4); ABSOLUTE MONOCYTE COUNT 0.5 /CUMM (0.10-0.60); EOSINOPHIL % 1.8 % (0-5); GRANULOCYTE % 70.6 % (42.2-75.2); HEMATOCRIT 35.4 % (37-47); MEAN CORPUSCULAR HGB CONC 32.4 G/DL (33.0-37.0); MEAN CORPUSCULAR VOLUME 92.4 FL (81.0-99.0); MEAN PLATELET VOLUME 9.6 FL (7.4-10.4); PLATELET COUNT 145 /CUMM (130-400); RBC DISTRIBUTION WIDTH 16.5 % (11.5-14.5); RED BLOOD CELL CT 3.83 /CUMM (4.20-5.40)
[2017-08-03 14:55] VITALS: BP 118/70; BP 134/80
[2017-08-03 22:16] VITALS: BP 122/70
[2017-08-04 06:34] VITALS: BP 144/86
--- NOTE | 2017-08-04 07:37 | PN- Housestaff ---
See Addendum Subjective Follow-up For: Nausea/vomiting/black stools Complaints: no complaints Subjective: I followed up and examined the patient today. She is resting comfortably in bed , does not have any nausea, vomiting, and has not had a bowel movement since the night before. Miralax was NOT given as instructed yesterday for constipation. She has been receiveing opiates for pain. VSS, no hypotension, hematemesis, tachycardia, bruises. Review of Systems Constitutional: Reports: no symptoms, see HPI. Objective Last 24 Hrs of Vital Signs/I&O Vital Signs Date Time Temp Pulse Resp B/P B/P Pulse O2 O2 Flow FiO2 Mean Ox Delivery Rate 08/04 1500 97.9 56 16 105/80 93 Room Air 08/04 0857 54 18 136/78 92 Room Air 08/04 0634 98.0 58 20 144/86 92 Room Air 08/03 2216 98.1 53 20 122/70 90 Room Air Intake & Output 08/04 1600 08/04 0800 05 0000 Intake Total 580 150 100 Output Total 250 1000 Balance 580 -100 -900 Intake, IV 20 50 Intake, Oral 560 100 100 Output, Urine 250 1000 Physical Exam General Appearance: Alert, Oriented X3, Cooperative, No Acute Distress, right AKA Other Physical Findings: Skin No Rashes, No Breakdown, tattoos + Mucosa moist HEENT Atraumatic Neck Supple, No JVD Cardiovascular Regular Rate Lungs Clear to Auscultation, Normal Air Movement Abdomen non tender, soft, no rebound tenderness or guarding/rigidity Neurological grossly intact Extremities No Edema, No Tenderness/Swelling, RLE AKA, LLE grossly normal Vasc Diminished pulse generalized Current Medications: Current Medications Sig/Eduardo Start time Last Medication Dose Route Stop Time Status Admin Acetaminophen 325 MG Q6P PRN 08/02 0015 DCD PO Amlodipine Besylate 10 MG DAILY 08/02 899 DCD 08/04 PO 0851 Aspirin Buffered 81 MG DAILY 08/02 899 DCD 08/04 PO 0851 Atorvastatin Calcium 80 MG Q2D 08/02 0200 DCD 08/04 PO 0147 Dicyclomine HCl 20 MG 4 TIMES/DAY PRN 08/02 0130 DCD PO Levothyroxine Sodium 0.112 MG DAILY AC 08/02 07 DCD 08/04 PO 0549 Metoprolol Succinate 50 MG DAILY 08/02 899 DCD 08/04 PO 0851 Morphine Sulfate 2 MG Q4P PRN 08/02 0130 DC 08/04 IV 0553 Omeprazole 20 MG DAILY AC 08/02 1826 DCD 08/04 PO 0548 Ondansetron HCl 4 MG Q6P PRN 08/02 0130 DCD IV Polyethylene Glycol 17 GM DAILY NEEDED PRN 08/03 1345 DCD 08/04 PO 0851 Senna/Docusate Sodium 2 TAB BID PRN 08/04 0845 DCD PO Tramadol HCl 50 MG Q8P PRN 08/02 0130 DCD 08/04 PO 1017 Last 24 Hrs of Lab/Imer Results Last 24 Hrs of Labs/Mics: Laboratory Tests 08/04/17 0820: Anion Gap 12, Estimated GFR > 60, BUN/Creatinine Ratio 11.4, Total Bilirubin 0.7 , Direct Bilirubin 0.4, AST 41 H, ALT 31, Alkaline Phosphatase 130 H, Total Protein 7.0, Albumin 4.0, CBC w Diff NO MAN DIFF REQ, RBC 3.99 L, MCV 92.1, MCH 30.4, MCHC 33.0, RDW 15.9 H, MPV 9.3, Gran % 65.0, Lymphocytes % 25.5, Monocytes % 7.0, Eosinophils % 1.5, Basophils % 1.0, Absolute Granulocytes 4.4, Absolute Lymphocytes 1.7, Absolute Monocytes 0.5, Absolute Eosinophils 0.1, Absolute Basophils 0.1 Assessment/Plan Assessment: Assessment - Sepsis (white count with bandemia, tachycardia, hypothermia, lactic acidosis, pancolitis), resolved - Likely Ling Henderson tear, H/H did drop from 16 to 11, likely a drop and dilution result - Pancolitis, not specific only from imaging per GI - Dehydration, improved - less likely samuel- EMR shows Negative guiac stool from 08/03/17 evening - MARY, likely prerenal secondary to dehydration, resolved - Elevated alkaline phosphatase - Severe peripheral vascular disease, status post AKA right foot - History of CAD, s/p mitral valve replacement - Abdominal aortic aneurysm - Hypokalemia Plan * Advanced regular diet, tolerating well * IV Zofran PRN for nausea, not requiring now * Stool cultures, vibrio, C. difficile toxin, not sent as no BM; BC negative so far * Dicyclomine/hyoscyamine for abdominal pain * GI consulted with Dr. Jarvis. Will need outpatient colonoscopy, and also needs to be OFF plavix for at lease five days then for biopsy then. Plavix to be continued for now, but to be held for 5-7 days prior to colonoscopy later. * Per GI, she probably had ling-Henderson tear which will heal in few days and does not need aggressive intervetion, gavino since her VSS and H/H is stable too. * Severe vascular disease. Needs out patient vascular surgery referral. Could have component of chronic ischemic bowel due to this. * paste worker consult. Patient is unable to keep up her appointments due to lack of transportation. * Pain meds: Patient agreed to continue with Tramadol 50 mg PO, CTPMP done, showing limited opiate use. 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
[2017-08-04] MEDS ORDERED: OMEPRAZOLE20 M2 PO ×2 (07:39→15:02)
[2017-08-04 08:57] VITALS: BP 136/78
[2017-08-04 09:47] LABS: ABSOLUTE BASOPHIL COUNT 0.1 /CUMM (0.0-0.2); ABSOLUTE EOSINOPHIL COUNT 0.1 /CUMM (0.0-0.7); ABSOLUTE GRANULOCYTE CT 4.4 /CUMM (1.4-6.5); ABSOLUTE LYMPH COUNT 1.7 /CUMM (1.2-3.4); ABSOLUTE MONOCYTE COUNT 0.5 /CUMM (0.10-0.60); EOSINOPHIL % 1.5 % (0-5); HEMATOCRIT 36.7 % (37-47); MEAN CORPUSCULAR HGB 30.4 PG (27.0-31.0); MEAN CORPUSCULAR VOLUME 92.1 FL (81.0-99.0); MEAN PLATELET VOLUME 9.3 FL (7.4-10.4); PLATELET COUNT 167 /CUMM (130-400); RBC DISTRIBUTION WIDTH 15.9 % (11.5-14.5); RED BLOOD CELL CT 3.99 /CUMM (4.20-5.40); WHITE BLOOD CELL COUNT 6.8 /CUMM (4.8-10.8)
--- NOTE | 2017-08-04 14:17 | Patient Discharge Instructions ---
Discharge Instructions General Discharge Information You were seen/treated for: Possible Ling Henderson Tear Special Instructions: Please follow up with Vascular surgeon, PCP after your discharge. A new PCP has been assigned to you. Dr Oswaldo Naranjo at [facility], [place]. Please returnt to emergency if symptoms worsen. Diet Continue normal diet: Yes Activity Full Activity/No Limits: No Activity Self Limited: Yes (amputee) Acute Coronary Syndrome Inclusion Criteria At DC or during hospital stay patient has or had the following: ACS DIAGNOSIS No Discharge Core Measures Meds if any: Prescribed or Continued at Discharge Meds if any: NOT Prescribed or Continued at Discharge Congestive Heart Failure Inclusion Criteria At DC or during hospital stay patient has or had the following: CHF DIAGNOSIS No Discharge Core Measures Meds if any: Prescribed or Continued at Discharge Meds if any: NOT Prescribed or Continued at Discharge Cerebrovascular accident Inclusion Criteria At DC or during hospital stay patient has or had the following: CVA/TIA Diagnosis No Discharge Core Measures Meds if any: Prescribed or Continued at Discharge Meds if any: NOT Prescribed or Continued at Discharge Venous thromboembolism Inclusion Criteria VTE Diagnosis No VTE Type NONE VTE Confirmed by (Test) NONE Discharge Core Measures - Per Current guidelines, there needs to be overlap - treatment for the first 5 days of Warfarin therapy. - If discharged on Warfarin prior to 5 days of - overlap therapy, the patient will need to be - assessed for post discharge needs including - *Post discharge parental anticoagulation - *Warfarin and/or parental anticoagulation education - *Follow up date to check INR post discharge At least 5 days overlap therapy as Inpatient No Meds if any: Prescribed or Continued at Discharge Note: Overlap Therapy is Warfarin and Anticoagulant Meds if any: NOT Prescribed or Continued at Discharge
[2017-08-04 15:00] VITALS: BP 105/80
[2017-08-04] MEDS ORDERED: METOPROLOL SUCC50 M2 PO (15:02)
[2017-08-04] MEDS ORDERED: ASPIRIN EC81 M1 PO (15:02)
[2017-08-04] MEDS ORDERED: TRAMADOL HCL50 M1 PO (15:02)
[2017-08-04] MEDS ORDERED: SENNA PLUS TAB1 EACH PO (15:02)
[2017-08-04] MEDS ORDERED: AMLODIPINE BESY10 M1 PO (15:02)
[2017-08-04] MEDS ORDERED: CLOPIDOGREL75 M1 PO (15:02)
[2017-08-04] MEDS ORDERED: LISINOPRIL20 M1 PO (15:02)
[2017-08-04] MEDS ORDERED: ATORVASTATIN CA80 M1 PO (15:02)
--- NOTE | 2017-08-04 19:00 | Discharge Summary ---
Visit Information Visit Dates Admission Date: 08/01/17 Discharge Date: 08/04/17 Hospital Course Course Attending Physician: Steve Garcia MD Primary Care Physician: Oswaldo Naranjo MD Hospital Course: 62 yo active smoker with pmh of HTN, HLD, CAD status post CABG in 2016 on Plavix , COPD, right lower extremity AKA in 05/06 to PVD, chronic back pain, hypothyroidism, came in to the ED for abdominal pain, nausea, retching, and vomiting, after eating out at a [place] place. Patient also had features of sepsis with dehydration when she initially presented. GI was consulted given her sepsis-criteria and imaging suggestive of pancolitis. Per GI recs, this is a non-specific finding and suggested no IV meds at this time. Also suggested with her improving condition that the sepsis/ischemic bowel was ruled out. She was treated with antiemetics, and IV fluids. She was on Plavix, so colonoscopy was postponed for out patient basis, where she has to be off Plavix for 5-7 days and then get the study done. Also, she had her colonoscopy done within a year. She improved clinically, not requiring oral antibiotics, and was discharged to home with follow up care with PCP (Dr Oswaldo Naranjo), GI (Dr Margarita Jarvis), and Vascular Surgeon (whether at [place] where she previously went, or Dr Krishnan, as referred). She was stable and was waiting for logistic issues regarding her folllow-up for her PCP and GI. She contacted her who does NOT live with her, but agreed to take her back home if she is discharged. Of note, for her high Blood Pressure, her dose of Amlodipine was changed from 5 mg to 10 mg daily. Allergies: Coded Allergies: erythromycin base (UNKNOWN PT DOESNT REMEMBER 08/22/16) Pertinent Lab Results: Abd/pelvis CTA: IMPRESSION: 1. Persistent changes of a pancolitis. Though there is enhancement of the mucosa of the colon, there is no extravasation of contrast or evidence of pooling of the contrast to indicate a site of active GI bleed. 2. Chronic vascular changes of aorta. Stable aneurysm of the aorta. Stable aortic bifemoral bypass graft. No enhancement of a right iliac artery graft similar to prior study. No vascular flow seen in the right femoral artery. Limited opacification of the left external iliac artery and left femoral artery. DICTATED BY: Primo Montgomery MD DATE/TIME DICTATED:08/01/172127 GAUGE MAKER APPRENTICE:PRINCSES DATE/TIME TRANSCRIBED:08/01/172127 Disposition Summary Disposition Principal Diagnosis: Likely Ling Henderson tear Additional Diagnosis: HTN, HLD, CAD status post CABG in 2016 on Plavix, COPD, right lower extremity AKA in 05/06 to PVD, chronic back pain previously on opiates, hypothyroidism Discharge Disposition: home or self care Discharge Instructions General Discharge Information Code Status: Full Code Patient's Diet: Regular diet Patient's Activity: As tolerated/Amputee/ Needs assistance Follow-Up Instructions/Appts: Please follow up with Crossbow Maker, Vascular surgeon, PCP after your discharge. A new PCP has been assigned to you. Dr [facility] Please returnt to emergency if symptoms worsen. Medications at Discharge Discharge Medications: Stop taking the following medications: Dicyclomine Hydrochloride (Bentyl) 10 MG CAPSULE ORAL 4 TIMES A DAY as needed for DIARRHEA Qty = 30 Loperamide HCl (Loperamide) 2 MG TABLET ORAL DAILY NEEDED Qty = 30 Continue taking these medications: Levothyroxine Sodium (Levothyroxine Sodium) 112 MCG TABLET 1 Tablet ORAL DAILY BEFORE BREAKFAST Qty = 30 Comments: Last Taken:08/04/17 Time: 5:45 AM Atorvastatin Calcium (Atorvastatin Calcium) 80 MG TABLET 1 Tablet ORAL Q2D Qty = 90 Comments: Last Taken:08/02/17 Time: 2:00 AM This prescription has been renewed Aspirin (Ecotrin*) 81 MG TABLET. 1 Tablet ORAL DAILY Qty = 90 Comments: Last Taken:08/04/17 Time: 8:45 AM This prescription has been renewed Start taking the following new medications: Omeprazole (Omeprazole) 20 MG CAPSULE. 20 Milligram ORAL DAILY BEFORE BREAKFAST Qty = 90 No Refills Comments: Last Taken:08/04/17 Time: 5:45 AM Sennosides/Docusate Sodium (Senna Plus Tablet) 8.6 MG-50 MG TABLET 2 Tablet ORAL DAILY as needed for CONSTIPATION Qty = 20 No Refills Comments: DID NOT RECEIVE WHILE IN HOSPITAL The following medications have been changed: Old: Lisinopril (Lisinopril) 20 MG TABLET 1 Tablet ORAL DAILY Qty = 30 New: Lisinopril (Lisinopril) 20 MG TABLET 1 Tablet ORAL DAILY Qty = 90 Comments: DID NOT RECEIVE WHILE IN HOSPITAL Old: Amlodipine Besylate (Amlodipine Besylate) 10 MG TABLET 1 Tablet ORAL DAILY Qty = 30 New: Amlodipine Besylate (Amlodipine Besylate) 10 MG TABLET 1 Tablet ORAL DAILY Qty = 90 Comments: Last Taken:08/04/17 Time: 8:45 AM Old: Clopidogrel Bisulfate (Clopidogrel) 75 MG TABLET 1 Tablet ORAL DAILY Qty = 90 New: Clopidogrel Bisulfate (Clopidogrel) 75 MG TABLET 1 Tablet ORAL DAILY Qty = 90 Instructions: . Comments: DID NOT RECEIVE WHILE IN HOSPITAL Old: Metoprolol Succinate (Metoprolol Succinate) 50 MG TAB.ER.24H 1 Tablet ORAL DAILY New: Metoprolol Succinate (Metoprolol Succinate) 50 MG TAB.ER.24H 1 Tablet ORAL DAILY Qty = 90 Comments: Last Taken:08/04/17 Time: 8:45 AM Old: Tramadol HCl (Tramadol HCl) 50 MG TABLET 1 Tablet ORAL EVERY 8 HOURS NEEDED as needed for CHRONIC PAIN Qty = 14 New: Tramadol HCl (Tramadol HCl) 50 MG TABLET 1 Tablet ORAL EVERY 8 HOURS NEEDED as needed for CHRONIC PAIN Qty = 30 Instructions: . Comments: Last Taken:08/04/17 Time: 10:15 AM Copies To: Matheus MONTIEL,Margarita; Jose A MONTIEL,Oswaldo Valdez; Ariella MONTIEL,Tanner Attending MD Review Statement Documenting Attending: Steve Garcia MD Other Findings: The patient was seen on the day of discharge with house staff, nursing, case management and social service. Medically stable for discharge, however needs follow-up with new PCP, GI, etc. The patient has no mode of transportation to and from appointments and has wheel chair in rented apartment without a ramp. The patient was medically stable for discharge and suggested that social services counselor evaluate other options for patient transport.
== END 2017-08-04 16:49 | DRG 871 ==
LOC: ERH 16:34 → 2NB 23:08 → ERHI 23:08 → ENRESERV 23:44 → 2NB 08-02 00:57 → ENTRNSPT 08-03 13:19 → EDTRNSPT 08-03 13:27 → EDTRNSPTSTS 08-03 13:27 → DELTRNSPT 08-03 13:37 → 2NB 08-04 16:49
PROVIDERS: Physician Assistant Medical; Student in an Organized Health Care Education/Training Program
DX: A41.9 Sepsis, unspecified organism (principal); K22.6 Gastro-esophageal laceration-hemorrhage syndrome; N17.9 Acute kidney failure, unspecified; E87.2 Acidosis; Z89.611 Acquired absence of right leg above knee; Z95.1 Presence of aortocoronary bypass graft; J44.9 Chronic obstructive pulmonary disease, unspecified; E78.5 Hyperlipidemia, unspecified; I25.10 Atherosclerotic heart disease of native coronary artery without angina pectoris; Z98.61 Coronary angioplasty status; Z79.01 Long term (current) use of anticoagulants; Z79.82 Long term (current) use of aspirin; M54.9 Dorsalgia, unspecified; E03.9 Hypothyroidism, unspecified; F17.210 Nicotine dependence, cigarettes, uncomplicated; Z88.1 Allergy status to other antibiotic agents; I73.9 Peripheral vascular disease, unspecified; Z89.521 Acquired absence of right knee; R68.0 Hypothermia, not associated with low environmental temperature; E86.0 Dehydration
CPT/HCPCS: 2NBSP; ERO; 36592; 71045; 74174; 81003; 82436; 86902; 86920; 86922; 87040; 87045; 87328; 87329; 93005; 93010; 96374; 96375; 97161-GP; 97530-GO; J0131; J2405